=== PATIENT | male | born 1950 | race Caucasian/White ===

== ENCOUNTER 2017-02-04 14:03 | Outpatient (CLI) | payer OTHER ==
--- NOTE | 2017-02-04 14:42 | DI ---
EXAM: CHEST FRONTAL AND LATERAL VIEWS HISTORY: Cough. COMPARISON: None FINDINGS: Normal heart size. There is at least mild aortic atherosclerosis. Chronic-appearing samantha g changes with mild hyperinflation. No acute infiltrates or vascular congestion. No visible pleura l fluid or pneumothorax. Slight nodularity in the right infrahilar space likely represents bronchova scular structures. Postop changes of the shoulders and the lower cervical spine. IMPRESSION: 1. No acute infiltrates identified. 2. Slight nodularity in the right infrahilar space likely represents bronchovascular shadows. Cons ider follow-up chest radiography for clarification. 3. Postop changes.
--- NOTE | 2017-02-04 14:42 | DI ---
EXAM: Left foot three views HISTORY: Pain in left foot COMPARISON: None FINDINGS: No fracture or dislocation. Small plantar calcaneal spur. Mild posterior calcaneal enth esopathy. Mild osteoarthritis first MTP joint with joint space narrowing and osteophyte formation. IMPERSSION: 1. No fracture or dislocation. 2. Mild osteoarthritis first MTP joint. 3. Small plantar calcaneal spur. Mild posterior calcaneal enthesopathy.
--- NOTE | 2017-02-04 14:42 | DI ---
EXAM: Three views of the right foot. History: Right foot pain. Findings: No acute fracture or dislocation. Moderate narrowing of the first MTP joint with subchon dral sclerosis and osteophyte formation. Minimal calcaneal enthesiopathy. Os peroneum. Impression: 1. No acute osseous abnormality. 2. Moderate osteoarthritis of the first MTP joint.
--- NOTE | 2017-02-04 14:43 | DI ---
EXAM: CERVICAL SPINE, 3 VIEWS HISTORY: Neck pain. FINDINGS: No comparison. Anterior stabilization hardware extends from C4 through C7. Hardware ace ears grossly intact. There is no spondylolisthesis or significant loss of vertebral body height. D iffuse degenerative disc and facet disease is moderate. Lateral masses of C1 and C2 are normally ali gned and the odontoid process is intact. No scoliosis. Bone density appears mildly decreased. No prevertebral soft tissue thickening. IMPRESSION: No definite acute cervical spine findings. If concern is persistent additional imaging can be consi dered.
== END 2017-02-04 14:04 | disposition home or self-care (01) ==
LOC: RAD 14:03
PROVIDERS: ATTEND Nurse Practitioner Family
DX: M54.2 Cervicalgia (principal); M79.672 Pain in left foot; M79.671 Pain in right foot; R05 Cough

== ENCOUNTER 2017-02-05 09:48 | Outpatient (CLI) | payer OTHER ==
[2017-02-05 12:49] LABS: BASOPHILS # (AUTO) 0.1 K/uL (0-0.2); BASOPHILS % (AUTO) 0.6 % (0.0-3.0); EOSINOPHILS # (AUTO) 0.3 K/ul (0.0-0.7); EOSINOPHILS % (AUTO) 3.2 % (0.0-7.0); HEMOGLOBIN 17.1 g/dl (14.0-18.0); LYMPHOCYTES % (AUTO) 37.4 (10.0-50.0); MEAN CORPUSCULAR HEMOGLOBIN 31.8 pg (27.0-31.0); MEAN CORPUSCULAR HGB CONC 34.2 (31.8-35.4); MEAN CORPUSCULAR VOLUME 92.9 fl (80.0-94.0); MONOCYTES # (AUTO) 0.9 K/uL (0.4-2.0); MONOCYTES % (AUTO) 10.6 (0-10); NEUTROPHILS # (AUTO) 3.8 K/ul (2.0-6.9); NEUTROPHILS % (AUTO) 47.2; PLATELET COUNT 212 10^3/uL (140-440); RED BLOOD COUNT 5.38 10^6/ul (4.70-6.10); WHITE BLOOD COUNT 8.02 K/ul (4.2-10.2)
[2017-02-05 13:34] LABS: ALBUMIN/GLOBULIN RATIO 1.05; ANION GAP 16.3; BILIRUBIN,TOTAL 0.76 mg/dL (0.00-1.20); BUN/CREATININE RATIO 17.5; CALCIUM 9.4 mg/dL (8.2-10.2); CHOL/HDL RATIO 4.4 (4.5-6.4); CREATININE 0.8 mg/dL (0.60-1.10); POTASSIUM 4.3 mmol/L (3.5-5.1); TOTAL PROTEIN 7.8 g/dL (5.8-8.1)
== END 2017-02-05 09:49 | disposition home or self-care (01) ==
LOC: LAB 09:48
PROVIDERS: ATTEND Nurse Practitioner Family
DX: E75.6 Lipid storage disorder, unspecified (principal); I10 Essential (primary) hypertension; F17.200 Nicotine dependence, unspecified, uncomplicated; Z12.5 Encounter for screening for malignant neoplasm of prostate
CPT/HCPCS: 36415; 80053; 80061; 84439; 84443; 85025

== ENCOUNTER 2017-02-11 07:41 | Outpatient (CLI) | payer OTHER ==
--- NOTE | 2017-02-11 08:49 | CT ---
EXAM: CT chest with and without contrast HISTORY: Right infrahilar nodular density on prior chest x-ray COMPARISON: Chest x-ray 02/04/2017 TECHNIQUE: Serial axial images of the chest were obtained after and before 75 ml of Omnipaque IV co ntrast was administered. These were obtained from the lung apices to the upper abdomen. FINDINGS: The thyroid is normal. Visualized vessels are unremarkable. There is no dissection, ane urysm or stenosis. The heart is normal in size without pericardial effusion. There is no mediastin al, hilar or axillary pathologically enlarged lymph nodes. There is no pneumothorax or pleural effusion. There is calcified granuloma in the anterior left upp er lobe on image 14. There is a 0.3 cm ground-glass nodule in the posterior right upper lobe on pauline ge 18. There is a 0.3 cm pulmonary nodule in the inferior aspect of the right upper lobe on image 3 1. There is no additional nodule, consolidation or mass. The airways are patent. There is no sign ificant ground-glass. There is no abnormality to account for nodularity in the right infrahilar reg ion. There is degenerative disease of both shoulders. The left shoulder demonstrates a fractured left s crew. The right shoulder screw is unchanged. There is degenerative disease of the shoulders and sp ine. Chronic fracture changes of the left clavicle. There is internal fixation hardware in the cer vical spine. The soft tissues in the upper abdomen demonstrate a round 1.3 cm low attenuation lesio n in the left kidney with Hounsfield units of all consistent with a cyst. There is a nonobstructing 0.2 cm left renal stone. There is a small fat-containing ventral abdominal hernia. IMPRESSION: 1. No acute cardiopulmonary process to account for nodularity in the right infrahilar region on yoko or chest x-ray. Few scattered ground-glass pulmonary nodules are identified measuring less than 0.3 cm in diameter and are likely postinflammatory. No follow-up is necessary. 2. Fracture and fixation screw in the left shoulder with degenerative disease of the bilateral shou lders and spine. There is a chronic left clavicular fracture. 3. Left renal cyst and nonobstructing stone. 4. Fat containing ventral abdominal hernia.
[2017-02-11 08:57] VITALS: BMI 31.4
== END 2017-02-11 07:42 | disposition home or self-care (01) ==
LOC: RAD 07:41
PROVIDERS: ATTEND Nurse Practitioner Family
DX: R93.8 Abnormal findings on diagnostic imaging of other specified body structures (principal)

== ENCOUNTER 2017-02-11 08:44 | Emergency (ER) | payer OTHER ==
[2017-02-11 08:57] VITALS: BP 160/95; TEMP 98.2; BMI 31.4
[2017-02-11] MEDS ORDERED: MORPHINE 4 MG/ML SYRINGE IM STA (09:09)
[2017-02-11] MEDS ORDERED: ZOFRAN 4 MG/2 ML IM STA (09:09)
[2017-02-11 09:24] LABS: BASOPHILS % (AUTO) 0.2 % (0.0-3.0); EOSINOPHILS # (AUTO) 0.2 K/ul (0.0-0.7); EOSINOPHILS % (AUTO) 2.2 % (0.0-7.0); HEMATOCRIT 45.6 % (42.0-52.0); LYMPHOCYTES # (AUTO) 2.5 K/uL (0.60-3.4); LYMPHOCYTES % (AUTO) 30.8 (10.0-50.0); MEAN CORPUSCULAR HEMOGLOBIN 32.3 pg (27.0-31.0); MEAN CORPUSCULAR HGB CONC 35.1 (31.8-35.4); MEAN CORPUSCULAR VOLUME 92.1 fl (80.0-94.0); MONOCYTES # (AUTO) 0.8 K/uL (0.4-2.0); MONOCYTES % (AUTO) 9.6 (0-10); NEUTROPHILS # (AUTO) 4.5 K/ul (2.0-6.9); NEUTROPHILS % (AUTO) 56.2; PLATELET COUNT 185 10^3/uL (140-440); RED BLOOD COUNT 4.95 10^6/ul (4.70-6.10); WHITE BLOOD COUNT 8.02 K/ul (4.2-10.2)
[2017-02-11 09:39] LABS: ADD URINE MICROSCOPIC NO; BILIRUBIN,URINE Negative (NEGATIVE); KETONES,URINE Negative (NEGATIVE); LEUKOCYTE ESTERASE ,URINE Negative (NEGATIVE); NITRITE,URINE Negative (NEGATIVE); PH,URINE 7.5 (5-9); PROTEIN,URINE Negative (NEGATIVE); URINE, BLOOD Negative (NEGATIVE)
[2017-02-11 09:43] LABS: ALBUMIN 3.8 g/dL (3.4-5.0); ALBUMIN/GLOBULIN RATIO 1.31; ANION GAP 14.1; BILIRUBIN,TOTAL 0.86 mg/dL (0.00-1.20); BUN/CREATININE RATIO 16.88; CALCIUM 8.6 mg/dL (8.2-10.2); CREATININE 0.77 mg/dL (0.60-1.10); POTASSIUM 4.1 mmol/L (3.5-5.1); TOTAL PROTEIN 6.7 g/dL (5.8-8.1)
--- NOTE | 2017-02-11 10:12 | CT ---
EXAM: CT of the abdomen pelvis without contrast History: Left lower quadrant abdominal pain. Comparison: Chest CT 02/11/2017 Technique: Multiplanar CT images through the abdomen pelvis were obtained without the administratio n of IV contrast Findings: Mild bronchiectasis seen at the lung bases. No acute osseous abnormalities. Bilateral L5 pars defects with grade II spondylolisthesis of L5 on S1. Severe degenerative disc disease at L5-S 1. The liver is fatty. No discrete gallstones identified by CT. No focal liver or splenic lesions. T iny hiatal hernia. Adrenal glands are unremarkable. No peripancreatic inflammation. Contrast is s een within the bilateral renal collecting systems from the recent IV contrast study. No definite re nal calculi are identified although a small renal calculi could be obscured by the contrast material within the collecting systems. 1.2 cm left renal cyst. There is no hydronephrosis. No free air an d no ascites. Atherosclerotic vascular calcifications. Small to moderate fat containing umbilical hernia measuring 4 cm. Enlarged prostate abutting the base of the bladder. Bladder is not well dis tended. Postsurgical changes of the left colon. The appendix is normal. Impression: 1. No acute intra-abdominal or pelvic process. 2. Simple left renal cyst. 3. Hepatic steatosis. 4. A tiny hiatal hernia. 5. Enlarged prostate abutting the base of the bladder. Correlate with PSA. 6. Fat-containing umbilical hernia. 7. Bilateral L5 pars defects with grade II spondylolisthesis of L5 on S1. Severe degenerative disc disease at L5-L1.
--- NOTE | 2017-02-11 10:38 | ED.PDOC ---
General ED Provider: Dr. REMI GILMORE Chief Complaint: Back Pain Stated Complaint: back, flank and abominal pain Time Seen by Physician: 08:44 Mode of Arrival: Walk-In Information Source: Patient Exam Limitations: No limitations [facility] and T[facility] Documentation Reviewed and Agree: Yes GI Complaint Exam - Abdominal Pain Complaint/Exam Onset: Gradual Duration: 3 dats Symptoms Are: Still present Timing: Intermittent Initial Severity: Moderate Current Severity: Moderate Location of Pain: LLQ Radiates To: Reports: Flank (left) Character: Reports: Aching Aggravating: Reports: None Alleviating: Reports: None Associated Signs and Symptoms: Denies: Diaphoresis, Fever, Cough, Chest pain, Dizziness, Back pain, Constipation, Blood in stool, Dysuria, Urinary frequency, Decreased urine output, Decreased appetite, Discharge, Nausea, Vomiting, Diarrhea, Decreased activity Related History: Reports: Similar episode AAA Risk Factors: Reports: None Review of Systems - Review Of Systems Constitutional: Reports: No symptoms Eyes: Reports: No symptoms Ears, Nose, Mouth, Throat: Reports: No symptoms Respiratory: Reports: No symptoms Cardiac: Reports: No symptoms GI: Reports: Abdominal pain : Reports: No symptoms Musculoskeletal: Reports: Back pain Skin: Reports: No symptoms Neurological: Reports: No symptoms Endocrine: Reports: No symptoms Hematologic/Lymphatic: Reports: No symptoms All Other Systems: Reviewed and Negative Past Medical History - Past Medical History Previously Healthy: No Endocrine: Reports: None Cardiovascular: Reports: Hypertension Respiratory: Reports: COPD Hematological: Reports: None Gastrointestinal: Reports: None Genitourinary: Reports: Kidney stones Neuro/Psych: Reports: None Musculoskeletal: Reports: None Cancer: Reports: None - Surgical History General Surgical History: Reports: None - Family History Family History: Reports: None - Social History Smoking Status: Current every day smoker, Heavy tobacco smoker Hx Substance Use: No Alcohol Screening: Occasionally Physical Exam - Physical Exam Appearance: Well-appearing, No pain distress, Well-nourished Eyes: TAVIA, EOMI, Conjunctiva clear ENT: Ears normal, Nose normal, Oropharynx normal Respiratory: Airway patent, Breath sounds clear, Breath sounds equal, Respirations nonlabored Cardiovascular: RRR, Pulses normal, No rub, No murmur GI/: Soft, Nontender, No masses, Bowel sounds normal, No Organomegaly Musculoskeletal: Normal strength, ROM intact, No edema, No calf tenderness Skin: Warm, Dry, Normal color Neurological: Sensation intact, Motor intact, Reflexes intact, Cranial nerves intact, Alert, Oriented Psychiatric: Affect appropriate, Mood appropriate Interpretation - Radiology Interpretation Radiology Interpretation By: Radiologist Radiology Results: No acute changes Critical Care Note - Critical Care Note Total Time (mins): 0 Course - Course Hematology/Chemistry: 02/11/17 09:10 02/11/17 09:10 Orders, Labs, Meds: Lab Review 02/11/17 09:10 WBC 8.02 RBC 4.95 Hgb 16.0 Hct 45.6 MCV 92.1 MCH 32.3 H MCHC 35.1 RDW Coeff of [place] 13.5 Plt Count 185 Immature Gran % (Auto) 1.0 Neut % (Auto) 56.2 Lymph % (Auto) 30.8 [place] % (Auto) 9.6 Eos % (Auto) 2.2 Baso % (Auto) 0.2 Immature Gran # (Auto) 0.1 Neut # 4.5 Lymph # 2.5 [place] # 0.8 Eos # 0.2 Baso # 0.0 Sodium 137 Potassium 4.1 Chloride 103 Carbon Dioxide 24 Anion Gap 14.1 BUN 13 Creatinine 0.77 Estimated GFR (MDRD) 102.00 BUN/Creatinine Ratio 16.88 Glucose 133 H Calcium 8.6 Total Bilirubin 0.86 AST 21 ALT 19 Alkaline Phosphatase 85 Total Protein 6.7 Albumin 3.8 Globulin 2.9 Albumin/Globulin Ratio 1.31 Urine Color Yellow Urine Clarity Clear Urine pH 7.5 Ur Specific [place] 1.015 Urine Protein Negative Urine Glucose (UA) Negative Urine Ketones Negative Urine Blood Negative Urine Nitrite Negative Urine Bilirubin Negative Urine Urobilinogen 0.2 Ur Leukocyte Esterase Negative Orders Category Date Time Status CBC W/ AUTO DIFF Stat LAB 02/11/17 09:10 Completed COMPREHENSIVE METABOLIC PANEL Stat LAB 02/11/17 09:10 Completed URINALYSIS C & S IF INDICATED Stat LAB 02/11/17 09:10 Completed Morphine Sulfate [Morphine 4 mg/ml Syringe] MEDS 02/11/17 09:09 Discontinued 4 mg IM ONCE STA Ondansetron HCl/Pf [Zofran 4 mg/2 ml] MEDS 02/11/17 09:09 Discontinued 4 mg IM ONCE STA CT ABD/PEL WO RENAL STONE PROT Stat RADS 02/11/17 09:10 Completed Medications Discontinued Medications Generic Name Dose Route Start Last Admin Trade Name Nadiya PRN Reason Stop Dose Admin Morphine Sulfate 4 mg 02/11/17 09:09 02/11/17 09:38 Morphine 4 Mg/Ml Syringe IM 02/11/17 09:10 4 mg ONCE STA Administration Ondansetron HCl 4 mg 02/11/17 09:09 02/11/17 09:38 Zofran 4 Mg/2 Ml IM 02/11/17 09:10 4 mg ONCE STA Administration Vital Signs: Temp Pulse Resp BP Pulse Ox 02/11/17 08:44 98.2 F 89 20 160/95 H 93 L Departure - Departure Time of Disposition: 10:39 Disposition: HOME SELF-CARE Discharge Problem: Backache Instructions: Marisol (ED), Abdominal Pain in Children (ED), Abdominal Pain (ED) Condition: Good Pt referred to PMD for follow-up: No Prescriptions: Hydrocodone/Acetaminophen [[place] 10-325 Tablet] 1 each PO Q8HR #12 tablet Allergies/Adverse Reactions: Allergies pencillin Allergy (Severe, Uncoded 02/11/17 08:57) Swelling Difficulty breathing Home Medications: Ambulatory Orders Hydrocodone/Acetaminophen [[place] 10-325 Tablet] 1 each PO Q8HR #12 tablet Disposition Discussed With: Patient
== END 2017-02-11 10:43 | disposition home or self-care (01) ==
LOC: ED 08:44
DX: M54.9 Dorsalgia, unspecified (principal); R10.32 Left lower quadrant pain; I10 Essential (primary) hypertension; F17.210 Nicotine dependence, cigarettes, uncomplicated; Z87.442 Personal history of urinary calculi; R93.8 Abnormal findings on diagnostic imaging of other specified body structures
CPT/HCPCS: 36415; 74176; 80053; 81001; 85025; 96372; 99283

== ENCOUNTER 2017-02-13 14:21 | Outpatient (CLI) | payer OTHER ==
--- NOTE | 2017-02-13 14:48 | DI ---
EXAM: Five views of the lumbar spine. History: Lower back pain. Findings / impression: Atherosclerotic vascular calcifications. No acute fracture. Bilateral L5 pa rs defects with grade II spondylolisthesis of L5 on S1. Severe degenerative disc disease at L5-S1 a nd moderate to severe facet hypertrophy at L5-S1. Mild to moderate disc space narrowing seen elsewh ere.
[2017-02-14 09:24] LABS: PSA, FREE 1.29 ng/mL
== END 2017-02-13 14:22 | disposition home or self-care (01) ==
LOC: RAD 14:21
PROVIDERS: ATTEND Nurse Practitioner Family
DX: R73.09 Other abnormal glucose (principal); M54.5 Low back pain; I10 Essential (primary) hypertension; Z12.5 Encounter for screening for malignant neoplasm of prostate
CPT/HCPCS: 36415; 83036; 93005; 93010

== ENCOUNTER 2017-02-21 06:19 | Outpatient (CLI) ==
--- NOTE | 2017-02-21 07:59 | STRESSMOD ---
Ordering Physician: KRISTAL Date of Test: 02/21/17 Medical History: PAC'S, ABNORMAL EKG, CARDIAC CATH 2011, HTN, CHEST PAIN Current Medications: COREG, RANITIDINE, CARAFATE, METFORMIN, ALBUTEROL Physical Findings: S1, S2, NO S3 Target Heart Rate: 132/156 Resting EKG: SINUS RHYTHM/LEFT VENTRICULAR HYPERTROPHY/FEW PVC'S STAGE MPH/GRADE HEART RATE BPM BLOOD PRESSURE mmhg RHYTHM S-T SEGMENT UP DOWN SYMPTOMS,COMMENTS At Rest 70 140/90 SR X NONE 1 1.7/0% 106 158/94 SR X NONE 2 1.7/5% 3 1.7/10% 4 2.5/12% 5 3.4/14% 6 4.2/16% 7 5.18% Immediately after 126 160/90 SR X FATIGUE Total Time: 8:01 Maximum Heart Rate Reached: 126 Reason for Termination: FATIGUE 3 MIN POST EXERCISE: HR 80 BPM, BP 150/96 MMHG, SR, +/- ____ INTERPRETATION: 94% OXYGEN SATURATION WITH EXERCISE ON ROOM AIR METS 4.8 1. PATIENT REPORTED CARDIAC CATH 2011--SAYS "WAS NORMAL" @ [place], [place] 2. NO EVIDENCE OF ISCHEMIA BY ST-T WAVE 3. NO CHEST PAIN OR DISCOMFORT 4. BLOOD PRESSURE RESPONSE: MILD HYPERTENSION AT REST AND WITH EXERCISE 5. FEW PVC'S AT REST--LESS FREQUENT WITH EXERCISE NORMAL LEFT VENTRICULAR CONTRACTILITY --RESTING AND POST EXERCISE MTDD
--- NOTE | 2017-02-21 08:02 | ECHOSTRESS ---
Date of Exam: 02/21/17 Ordering Physician: [place] GIRALDO Reason for Echo: PAC'S, ABNORMAL EKG, STRESS TEST--NO ISCHEMIA M-Mode Normal Adult Results LV Dimensions Normal Adult Results AoV Opening excursions >1.6 LVEDD-base- 3.5-5.8 Ao root dimensions 2.0-3.7 LVESD-base- 3.1-4.6 L. Atrium dimensions 1.9-3.8 Post. Wall thickness 0.8-1.1 IV septum (thickness) 0.7-1.2 Post. Wall excursion 0.72-1.3 Septal motion Systolic motion R. Ventricular cavity 1.5-2.0 LVEF 60% Paradoxical septal wall motion 2-D: NORMAL LEFT VENTRICULAR CONTRACTILITY--RESTING AND POST EXERCISE M-MODE: MV: AV: TV: PV: CHAMBER SIZE: WALL MOTION: NORMAL LEFT VENTRICULAR CONTRACTILITY--RESTING AND POST EXERCISE PERICARDIUM: INTERPRETATION: 1. NORMAL LEFT VENTRICULAR CONTRACTILITY--RESTING AND POST EXERCISE MTDD
== END 2017-02-21 06:20 | disposition home or self-care (01) ==
LOC: CAR 06:19
PROVIDERS: ATTEND Nurse Practitioner Family
DX: I49.1 Atrial premature depolarization (principal); R94.31 Abnormal electrocardiogram [ECG] [EKG]

== ENCOUNTER 2017-03-08 13:36 | Outpatient (CLI) | END 2017-03-08 13:37 | disposition home or self-care (01) | LOC: LAB 13:36 | PROVIDERS: ATTEND Nurse Practitioner Family | DX: J02.9 Acute pharyngitis, unspecified (principal) | CPT/HCPCS: 87651; 87880 ==

== ENCOUNTER 2017-08-21 10:06 | Outpatient (CLI) | payer OTHER ==
--- NOTE | 2017-08-21 11:20 | US ---
Exam: Lux-scale and color Doppler ultrasonographic evaluation of the carotid arteries. Comparison: None available. Reason for exam: Dizziness and giddiness FINDINGS: There is a small amount of atheromatous plaque seen in the proximal right internal carotid artery The right external carotid artery measures 130 cm per second The right common carotid artery measures 90 / 20 cm/sec. The right internal carotid artery peak systolic velocity measures 70 cm per second The right internal carotid artery/CCA PSV ratio measures 0.8. The right internal carotid artery end-diastolic velocity measures 20 cm/sec. There is normal antegrade right vertebral artery flow. There is a small amount of atheromatous plaque in the proximal left internal carotid artery. The left external carotid artery measures 80 cm per second The left common carotid artery measures 70 / 20 cm/sec. The left internal carotid artery peak systolic velocity measures 80 cm per second The left internal carotid artery/CCA PSV ratio measures 1.2. The left internal carotid artery end-diastolic velocity measures 0.3 cm/sec. There is normal antegrade left vertebral artery flow. Impression: No evidence of significant stenotic disease is seen in the left or right internal carotid arteries
[2017-08-21] MEDS ORDERED: ALBUTEROL 0.083% NEB NEB STA (12:23)
== END 2017-08-21 10:07 | disposition home or self-care (01) ==
LOC: RAD 10:06
PROVIDERS: ATTEND Nurse Practitioner Family
DX: R06.02 Shortness of breath (principal); R42 Dizziness and giddiness

== ENCOUNTER 2017-10-17 11:04 | Outpatient (CLI) | END 2017-10-17 11:05 | disposition home or self-care (01) | LOC: LAB 11:04 | PROVIDERS: ATTEND Nurse Practitioner Family | DX: E11.9 Type 2 diabetes mellitus without complications (principal); I10 Essential (primary) hypertension; E75.6 Lipid storage disorder, unspecified; R39.198 Other difficulties with micturition; Z12.5 Encounter for screening for malignant neoplasm of prostate | CPT/HCPCS: 36415; 80053; 80061; 81001; 83036; 85025 ==

== ENCOUNTER 2017-10-22 10:14 | Outpatient (CLI) ==
--- NOTE | 2017-10-22 12:05 | DI ---
EXAM: Two views of the chest. History: Primary hypertension. Comparison: Chest radiograph 02/04/2017, chest CT 02/11/2017 Findings: Heart size is normal. No focal consolidation. No appreciable pleural fluid and no pneumo thorax. No acute osseous abnormalities. Postsurgical changes with fractured screw again seen involv ing the left scapula. Impression: No acute cardiopulmonary process. No change compared to the prior study.
== END 2017-10-22 10:15 | disposition home or self-care (01) ==
LOC: RAD 10:14
PROVIDERS: ATTEND Nurse Practitioner Family
DX: R00.2 Palpitations (principal); I10 Essential (primary) hypertension
CPT/HCPCS: 93005; 93010

== ENCOUNTER 2017-11-25 12:19 | Outpatient (CLI) ==
--- NOTE | 2017-11-25 13:11 | DI ---
EXAM: Two views of the chest. History: Cough. Comparison: Chest radiograph 10/22/2017 Findings: Heart size is within normal limits. No focal consolidation. No appreciable pleural fluid and no pneumothorax. There may be bronchial wall thickening. Postsurgical changes of the cervical spine. Stable fractured screw involving the left scapula. Impression: Bronchial wall thickening but no consolidated pneumonia.
== END 2017-11-25 12:20 | disposition home or self-care (01) ==
LOC: RAD 12:19
PROVIDERS: ATTEND Nurse Practitioner Family
DX: R05 Cough (principal)

== ENCOUNTER 2018-01-06 12:04 | Outpatient (CLI) | END 2018-01-06 12:05 | disposition home or self-care (01) | LOC: FCC-LAB 12:04 | PROVIDERS: ATTEND Nurse Practitioner Family | DX: E11.9 Type 2 diabetes mellitus without complications (principal); I10 Essential (primary) hypertension; E78.5 Hyperlipidemia, unspecified; Z79.899 Other long term (current) drug therapy | CPT/HCPCS: 36415; 80053; 80061; 81001; 83037; 85025 ==

== ENCOUNTER 2018-02-11 16:26 | Emergency (ER) ==
[2018-02-11 16:31] VITALS: BP 168/115; TEMP 96.8; BMI 33.0
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
[2018-02-11] MEDS ORDERED: NORFLEX IM STA (17:04)
[2018-02-11] MEDS ORDERED: DILAUDID IM STA (17:57)
[2018-02-11] MEDS ORDERED: VISTARIL INJ IM STA (17:58)
--- NOTE | 2018-02-11 18:06 | CT ---
EXAM: CT scan cervical spine HISTORY: Neck pain COMPARISON: None. FINDINGS: Contiguous axial images obtained through the cervical spine utilizing 2-mm collimation. S agittal and coronal reconstructions were imaged and reviewed.. There is loss normal cervical lordosi s suggesting paraspinal muscle spasm. The vertebral bodies are normal in height and alignment... Th ere has been prior anterior discectomy with interbody spacer placement anterior fusion C4-C5 through C6-C7. Marked degenerate disc disease is noted C7-T1. Degenerative changes noted about the left side of the left atlantoaxial articulation.. At C2-C3 there is mild central disc protrusion. Central c anal foramen are patent. At C3-C4 there is mild central disc protrusion with borderline narrowing of the central canal and right neural foraminal narrowing secondary to facet arthropathy. At C4-C5 spo ndylitic bulge narrows the central canal. There is bilateral neural foraminal narrowing secondary to uncovertebral degenerative changes. At C5-C6 spondylitic bulge narrows the AP dimension of the centr al canal. There is bilateral neural foraminal narrowing left greater than right. At C6-C7 spondyliti c bulge narrows the AP dimension of central canal. There is left neural foraminal narrowing secondar y to uncovertebral degenerative changes.. At C7-T1 spondylitic bulge narrows the AP dimension of melba tral canal. There is bilateral neural foraminal narrowing secondary to uncovertebral degenerative ch anges. IMPRESSION: Satisfactory postoperative fusion C4-C7. Multilevel central canal and foraminal stenosis as described.
== END 2018-02-11 19:01 | disposition home or self-care (01) ==
LOC: ED 16:26
DX: M54.2 Cervicalgia (principal); M48.02 Spinal stenosis, cervical region; M54.12 Radiculopathy, cervical region; F17.210 Nicotine dependence, cigarettes, uncomplicated
CPT/HCPCS: 36415; 80048; 96372; 99283

== ENCOUNTER 2018-02-25 08:52 | Outpatient (CLI) | payer OTHER ==
--- NOTE | 2018-02-25 14:04 | MRI ---
EXAM: MRI cervical spine without IV contrast. DATE: 25 February 2018. HISTORY: Cervical radiculopathy. TECHNIQUE: Sagittal and axial T1W and T2W sequences of the cervical spine along with sagittal IR and coronal T2W sequences were obtained using 1.5 [place] magnet. No IV contrast. COMPARISON: CT C-spine 02/11/2018. FINDINGS: There is no cervical scoliosis. Previous discectomies with an interbody fusion plug place ment and anterior plate and screw fixation are evident at C4-C5-C6-C7. No acute c-spine fracture, ingram bluxation, osseous malignancy, or jumped facet is apparent. Cervical vertebrae normal in height. Alex ne marrow signal is overall normal. Large anterior osteophytes and marked disc space narrowing are p resent at C7-T1. Superior osteophytes at the C1 body and odontoid are consistent with arthritis. Ce rvical spinal canal is narrow at several levels. Cervical spinal cord reveals no syrinx, cord edema, myelomalacia, or neoplasm. Visible brainstem and cerebellum are unremarkable. Right maxillary sinus small retention cyst vs muc osal thickening is seen inferiorly. No mastoid disease is detected. Trachea, larynx, and epiglottis are grossly normal. No thyroid, submandibular, or parotid gland neoplasm is evident. No suspicious neck mass, cervical lymphadenopathy, apical lung mass, or pneumonia is evident. Segmental analysis: C2-3: Minor posterior disc bulge does not cause cord compression or central stenosis. There is yoon r left facet arthropathy. C3-4: Minor posterior disc/osteophyte complex does not contact the cord. There is mild ligamentum f lavum hypertrophy. Canal is 8.2 mm AP. Moderate/marked right and minor left foraminal stenoses are due to uncinate hypertrophy and mild facet arthropathy. C4-5: S/P ACDF. Posterior spondylotic ridge at the C4 inferior endplate and C5 superior endplate ca use slight cord flattening. Canal appears to be 8 mm AP. Marked bilateral foraminal stenoses due to uncinate hypertrophy and minor facet arthropathy. C5-6: S/P ACDF. Broad posterior spondylotic ridge touches the cord anteriorly. Canal is 8.6 mm AP. Mild right and moderate left foraminal stenoses due to uncinate hypertrophy. C6-7: S/P ACDF. Small posterior spondylotic ridge does not contact the cord. Canal is 10.3 mm AP. Mild left foraminal stenosis is due to uncinate hypertrophy. C7-T1: Broad posterior disc/osteophyte complex (2 mm AP) appears to flatten the cord anteriorly. Ca nal is 9.2 mm AP. Moderate/mild bilateral foraminal stenoses due to uncinate hypertrophy. IMPRESSIONS: 1. S/P ACDF at J3-X2-[id number]-C-7. 2. Multilevel cervical foraminal stenosis (especially bilateral C3-4 and C4-5). 3. Multilevel central canal stenoses (C3-4: Mild. C4-5: Mild/moderate. C5-6: Mild. C7-T1: Mild). 4. No cervical cord edema, syrinx, or myelomalacia.
== END 2018-02-25 08:53 | disposition home or self-care (01) ==
LOC: RAD 08:52
PROVIDERS: ATTEND Nurse Practitioner Family
DX: M54.12 Radiculopathy, cervical region (principal); R93.8 Abnormal findings on diagnostic imaging of other specified body structures

== ENCOUNTER 2018-04-08 11:29 | Outpatient (CLI) | END 2018-04-08 11:30 | disposition home or self-care (01) | LOC: RHC-LAB 11:29 | PROVIDERS: ATTEND Emergency Medicine | DX: E11.9 Type 2 diabetes mellitus without complications (principal); F32.9 Major depressive disorder, single episode, unspecified; R74.8 Abnormal levels of other serum enzymes; E78.5 Hyperlipidemia, unspecified | CPT/HCPCS: 36415; 80053; 80061; 83036; 85025 ==

== ENCOUNTER 2018-04-10 08:40 | Outpatient (CLI) ==
[2018-04-10] MEDS ORDERED: ALBUTEROL 0.083% NEB NEB STA (09:03)
== END 2018-04-10 08:41 ==
LOC: CAR 08:40
PROVIDERS: ATTEND Emergency Medicine
DX: J44.9 Chronic obstructive pulmonary disease, unspecified (principal)

== ENCOUNTER 2018-05-29 12:34 | Outpatient (CLI) | payer OTHER | END 2018-05-29 12:35 | disposition home or self-care (01) | LOC: FCC-LAB 12:34 | PROVIDERS: ATTEND Family Medicine | DX: M54.12 Radiculopathy, cervical region (principal) | CPT/HCPCS: 80306 ==

== ENCOUNTER 2018-11-12 11:45 | Outpatient (CLI) | END 2018-11-12 11:46 | disposition home or self-care (01) | LOC: CAR 11:45 | PROVIDERS: ATTEND Nurse Practitioner Family | DX: Z01.818 Encounter for other preprocedural examination (principal); E11.9 Type 2 diabetes mellitus without complications; I10 Essential (primary) hypertension; E78.5 Hyperlipidemia, unspecified; J44.9 Chronic obstructive pulmonary disease, unspecified; R74.8 Abnormal levels of other serum enzymes; R80.9 Proteinuria, unspecified | CPT/HCPCS: 36415; 80053; 80061; 81001; 82043; 83036; 85025; 93005; 93010 ==

== ENCOUNTER 2018-12-02 14:45 | Emergency (ER) | payer OTHER ==
[2018-12-02 14:54] VITALS: TEMP 97.7
--- NOTE | 2018-12-02 15:31 | ED.PDOC ---
General ED Provider: Dr. BENIGNO BROCK Chief Complaint: Respiratory Complaint Stated Complaint: reports a ransient breathing problem and palpitations last night-smoking still. Time Seen by Physician: 15:32 Mode of Arrival: Wheelchair Information Source: Patient Exam Limitations: No limitations Primary Care Provider: RIKA CAPELLAN Nursing and Triage Documentation Reviewed and Agree: Yes Does patient meet sepsis criteria?: No System Inflammatory Response Syndrome: Not Applicable Sepsis Protocol: For patient's 13 years and over: Temp is 96.8 and below OR 101 and greater Pulse >90 BPM Resp >20/minute Acutely Altered Mental Status Are patient's symptoms suggestive of a new infection, such as: -Pneumonia -Skin, Soft Tissue -Endocarditis -UTI -Bone, Joint Infection -Implantable Device -Acute Abdominal Infection -Wound Infection -Meningitis -Blood Stream Catheter Infection -Unknown Respiratory Complaint Exam - Respiratory Complaint/Exam Onset/Duration: breathing and palpitations Symptoms Are: Resolved Timing: Intermittent Initial Severity: Mild Current Severity: None Location: Chest Character: Reports: Non-productive cough Aggravating: Reports: None Alleviating: Reports: None Associated Signs and Symptoms: Reports: Wheezing Related History: Reports: Similar episode History of Healthcare-Acquired Pneumonia: No Related Surgical History: Reports: None Pulmonary Embolism Risk Factors: Smoking Cardiac Risk Factors: Reports: Smoking Pseudomonas Risk Factors: Reports: None Tuberculosis Risk Factors: Reports: None Status Asthmaticus Risk Factors: Reports: Smoke exposure Home Oxygen Use: No Recent Stress Test: No Recent Echo/LV Function: No Current Asthma Medication Use: No Respiratory Distress: None Inadequate Respiratory Effort: No Dysphagia Present: No Stridor Present: No JVD Present: No Accessory Muscle Use: No Retractions: Not Present Diminished Breath Sounds: Yes Prolonged Respiration: Expiratory phase Sinus Tenderness: None Grunting Respirations: No Kussmaul Respirations: No Differential Diagnoses: Asthma, Pulmonary Embolism, Lower Resp. Infection Non-Traumatic Chest Pain Syncope: EKG Performed Review of Systems - Review Of Systems Constitutional: Reports: Other Eyes: Reports: No symptoms Ears, Nose, Mouth, Throat: Reports: No symptoms Respiratory: Reports: Cough, Wheezing Cardiac: Reports: Palpitations GI: Reports: No symptoms : Reports: No symptoms Musculoskeletal: Reports: No symptoms Skin: Reports: No symptoms Neurological: Reports: No symptoms Endocrine: Reports: No symptoms Hematologic/Lymphatic: Reports: No symptoms All Other Systems: Reviewed and Negative Past Medical History - Past Medical History Previously Healthy: No Endocrine: Reports: None Cardiovascular: Reports: Hypertension Respiratory: Reports: COPD Hematological: Reports: None Gastrointestinal: Reports: None Genitourinary: Reports: Kidney stones Neuro/Psych: Reports: None Musculoskeletal: Reports: None Cancer: Reports: None - Surgical History General Surgical History: Reports: None - Family History Family History: Reports: None - Social History Smoking Status: Current every day smoker, Heavy tobacco smoker Hx Substance Use: No Alcohol Screening: Occasionally Physical Exam - Physical Exam Appearance: Well-appearing, Obese Ill-appearing: None Pain Distress: None Eyes: TAVIA ENT: Ears normal Neck: Supple Respiratory: Airway patent, Breath sounds diminished, Respirations nonlabored Cardiovascular: RRR GI/: Tender Musculoskeletal: Normal strength Skin: Warm Neurological: Sensation intact Psychiatric: Affect appropriate Critical Care Note - Critical Care Note Total Time (mins): 0 Course - Course Hematology/Chemistry: 12/02/18 15:48 12/02/18 15:48 Orders, Labs, Meds: Lab Review 12/02/18 12/02/18 15:48 15:48 WBC 8.50 RBC 4.65 L Hgb 14.6 Hct 43.0 MCV 92.5 MCH 31.4 H MCHC 34.0 RDW Coeff of [place] 12.8 Plt Count 200 Immature Gran % (Auto) 1.2 Neut % (Auto) 49.1 Lymph % (Auto) 36.8 [place] % (Auto) 9.5 Eos % (Auto) 2.9 Baso % (Auto) 0.5 Immature Gran # (Auto) 0.1 Neut # (Auto) 4.2 Lymph # (Auto) 3.1 [place] # (Auto) 0.8 Eos # (Auto) 0.3 Baso # (Auto) 0.0 Sodium 135.1 Potassium 4.40 Chloride 98.3 Carbon Dioxide 25.9 Anion Gap 15.30 BUN 16.7 Creatinine 0.67 Estimated GFR (MDRD) 119.00 BUN/Creatinine Ratio 24.92 Glucose 194.4 H Calcium 9.25 Total Bilirubin 0.43 AST 28.9 ALT 35.0 Alkaline Phosphatase 78.4 Total Protein 7.22 Albumin 4.64 Globulin 2.58 Albumin/Globulin Ratio 1.79 Orders Category Date Time Status EKG-(ED ONLY) Stat CARDIO 12/02/18 15:30 Completed NPO REMINDER: IMAGING ONCE CARE 12/02/18 15:38 Completed IV [ED IV/MEDIPORT/POWERPORT] .ONCE EMERGENCY 12/02/18 15:39 Active CBC W/ AUTO DIFF Stat LAB 12/02/18 15:48 Completed COMPREHENSIVE METABOLIC PANEL Stat LAB 12/02/18 15:48 Completed 0.9 % Sodium Chloride [Saline Flush] MEDS 12/02/18 15:39 Active 1 syr IVF PRN PRN Sodium Chloride 0.9% [Sodium Chloride] 1,000 ml MEDS 12/02/18 15:[address] CHEST PE PROTOCOL Stat RADS 12/02/18 15:37 Completed Medications Generic Name Dose Route Start Last Admin Trade Name Freq PRN Reason Stop Dose Admin Sodium Chloride 1 syr 12/02/18 15:39 12/02/18 16:07 Saline Flush IVF 1 syr PRN PRN Administration To flush IV Discontinued Medications Generic Name Dose Route Start Last Admin Trade Name Freq PRN Reason Stop Dose Admin Sodium Chloride 1,000 mls @ 1,000 mls/hr 12/02/18 15:40 12/02/18 16:07 Sodium Chloride IV 12/02/18 16:39 1,000 mls/hr BOLUS STA Administration Vital Signs: Temp Pulse Resp BP Pulse Ox 12/02/18 17:21 75 20 133/83 93 L 12/02/18 14:52 97.7 F 72 20 131/80 91 L Departure - Departure Time of Disposition: 17:34 Disposition: HOME SELF-CARE Discharge Problem: Heart palpitations Instructions: Supraventricular Tachycardia (ED) Condition: Good Pt referred to PMD for follow-up: Yes IPMP verified?: No Additional Instructions: Albuterol inhaler bid orn.Prednisobe 40 mg qd x 5 days.x Allergies/Adverse Reactions: Allergies codeine Allergy (Mild, Verified 12/02/18 14:51) Itching meloxicam Allergy (Verified 12/02/18 14:51) Nausea Penicillins Adverse Reaction (Verified 12/02/18 14:51) Disposition Discussed With: Patient, Family
[2018-12-02 15:34] VITALS: BMI 34.2
[2018-12-02] MEDS ORDERED: SODIUM CHLORIDE 1,000 ML IV STA (15:40)
--- NOTE | 2018-12-02 17:20 | CT ---
EXAM: CTA chest for PE HISTORY: Shortness of breath and palpitations COMPARISON: CT chest 02/11/2017 TECHNIQUE: CTA of the chest was performed from the lung apices to the upper abdomen after 100 ml of Omnipaque IV contrast was administered using PE protocol. 3-D imaging was also provided. FINDINGS: There is no filling defect in the pulmonary arteries to the level of the subsegmental pulm onary arteries. The heart is normal without signs of ventricular strain. The aorta demonstrates mil d atherosclerotic disease. The thyroid is unremarkable. There are non pathologically enlarged media stinal and right hilar lymph nodes. There is no pneumothorax or effusion. There is a 0.2 cm pulmonary nodule in the right upper lobe on image 26. There is a 0.2 cm pulmonary nodule in the inferior aspect of the right upper lobe on image 44. There is mild lower lobe and right middle lobe small airways thickening with minimal ground-gla ss. The central airways are patent. There is no acute consolidation or ground-glass. The soft tissues in the upper abdomen demonstrate diffuse low attenuation of the liver. The soft tis sues are otherwise unremarkable. The osseous structures demonstrate mild degenerative disease of the spine and cervical fusion hardware. IMPRESSION: 1. No pulmonary embolism. 2. Bilateral lower lobe and right middle lobe small airways thickening and mild ground-glass suggest nelsy of small airways inflammation versus infection. 3. Ground-glass pulmonary nodules as measured above are less than 0.2 cm and likely postinflammatory . 4. Mild atherosclerotic disease and degenerative disease of the spine with hepatic steatosis.
[2018-12-02 17:22] VITALS: BP 133/83
[2018-12-02] MEDS ORDERED: ALBUTEROL 0.083% NEB NEB STA (17:23)
== END 2018-12-02 17:52 | disposition home or self-care (01) ==
LOC: ED 14:45
DX: R00.2 Palpitations (principal); I10 Essential (primary) hypertension; R05 Cough; R06.2 Wheezing; F17.210 Nicotine dependence, cigarettes, uncomplicated
CPT/HCPCS: 36415; 80053; 85025; 93005; 93010; 94640; 96360; 99283

== ENCOUNTER 2019-02-20 08:59 | Emergency (ER) | payer OTHER ==
[2019-02-20 09:10] VITALS: BP 144/96; TEMP 97.3; BMI 32.2
[2019-02-20] MEDS ORDERED: DIFLUCAN PO STA (09:35)
--- NOTE | 2019-02-20 10:08 | ED.PDOC ---
General ED Provider: Dr. REMI GILMORE Chief Complaint: Scrotal Pain Stated Complaint: 68 y/o white male complains of burning with urination and pruritis involving the glans of the penis. Patient reports discontinuing his diabetic medication for some time due to intolerance to Metformin. His blood sugar at home has been in excess of 300. Time Seen by Physician: 09:00 Mode of Arrival: Walk-In Information Source: Patient Exam Limitations: No limitations (photos submitted) Primary Care Provider: RIKA CAPELLAN Nursing and Triage Documentation Reviewed and Agree: Yes Does patient meet sepsis criteria?: No System Inflammatory Response Syndrome: Not Applicable Sepsis Protocol: For patient's 13 years and over: Temp is 96.8 and below OR 101 and greater Pulse >90 BPM Resp >20/minute Acutely Altered Mental Status Are patient's symptoms suggestive of a new infection, such as: -Pneumonia -Skin, Soft Tissue -Endocarditis -UTI -Bone, Joint Infection -Implantable Device -Acute Abdominal Infection -Wound Infection -Meningitis -Blood Stream Catheter Infection -Unknown Complaint Exam - Complaint/Exam Patient Complains of: Denies: Scrotal pain, Scrotal swelling, Groin pain, Groin swelling, Dysuria Onset/Duration: approximately 1 month Symptoms Are: Still present Timing: Constant Initial Severity: Mild Current Severity: Mild Location of Pain: Reports: Penis Character: Reports: Burning (itching) Aggravating: Reports: Palpation Alleviating: Reports: None Associated Signs and Symptoms: Reports: Dysuria. Denies: Diaphoresis, Back pain , Fever, Hematuria, Constipation, Blood in stool, Rectal pain, Appetite change, Nausea, Vomiting, Penile swelling, Penile discharge, Decreased urine output, Increased urine frequency, Increased thirst, Decreased activity, Lethargy, Scrotal pain, Scrotal swelling, Abdominal Pain Related History: Reports: Similar episode Last Voided: this morning Testicular Torsion Risk Factors: Reports: None Surgical Obstruction Risk Factors: Reports: None Related Surgical History: Reports: None Abdominal Findings: Present: None Genitalia Exam: Absent: Normal findings, Testes asymmetrical, Testes tender ( glans of penis is edematous, hypremic, please refer to photos ), Mass, Scrotal swelling, Penile swelling, Penile lesions, Penile vesicles Differential Diagnoses: Other (candidal balanitis ) Review of Systems - Review Of Systems Constitutional: Reports: No symptoms Eyes: Reports: No symptoms Ears, Nose, Mouth, Throat: Reports: No symptoms Respiratory: Reports: No symptoms Cardiac: Reports: No symptoms GI: Reports: No symptoms : Reports: Burning (involving glans of penis; see photos ) Musculoskeletal: Reports: No symptoms Skin: Reports: No symptoms Neurological: Reports: No symptoms Endocrine: Reports: No symptoms Hematologic/Lymphatic: Reports: No symptoms All Other Systems: Reviewed and Negative Past Medical History - Past Medical History Previously Healthy: No Endocrine: Reports: None Cardiovascular: Reports: Hypertension Respiratory: Reports: COPD Hematological: Reports: None Gastrointestinal: Reports: None Genitourinary: Reports: Kidney stones Neuro/Psych: Reports: None Musculoskeletal: Reports: None Cancer: Reports: None - Surgical History General Surgical History: Reports: None - Family History Family History: Reports: None - Social History Smoking Status: Current every day smoker, Heavy tobacco smoker Hx Substance Use: No Alcohol Screening: Occasionally - Immunizations Tetanus Shot up to Date: No (Unknown) Physical Exam - Physical Exam Appearance: Well-appearing, No pain distress, Well-nourished Eyes: TAVIA, EOMI, Conjunctiva clear ENT: Ears normal, Nose normal, Oropharynx normal Respiratory: Airway patent, Breath sounds clear, Breath sounds equal, Respirations nonlabored Cardiovascular: RRR, Pulses normal, No rub, No murmur GI/: Soft, Nontender, No masses (findings limited to glans of penis as documented in photos ) Musculoskeletal: Normal strength, ROM intact, No edema, No calf tenderness Skin: Warm, Dry, Normal color Neurological: Sensation intact, Motor intact, Reflexes intact, Cranial nerves intact, Alert, Oriented Psychiatric: Affect appropriate, Mood appropriate Critical Care Note - Critical Care Note Total Time (mins): 0 Course - Course Hematology/Chemistry: 02/20/19 09:42 Orders, Labs, Meds: Lab Review 02/20/19 02/20/19 09:20 09:42 WBC 7.80 RBC 5.49 Hgb 17.4 Hct 51.6 MCV 94.0 MCH 31.7 H MCHC 33.7 RDW Coeff of Dayana 12.9 Plt Count 194 Immature Gran % (Auto) 1.0 Neut % (Auto) 57.6 Lymph % (Auto) 30.9 [place] % (Auto) 8.3 Eos % (Auto) 1.9 Baso % (Auto) 0.3 Immature Gran # (Auto) 0.1 Neut # (Auto) 4.5 Lymph # (Auto) 2.4 [place] # (Auto) 0.7 Eos # (Auto) 0.2 Baso # (Auto) 0.0 Urine Color Yellow Urine Clarity Clear Urine pH 5.5 Ur Specific [place] 1.020 Urine Protein 1+ Urine Glucose (UA) 2+ Urine Ketones Negative Urine Blood Negative Urine Nitrite Negative Urine Bilirubin Negative Urine Urobilinogen 0.2 Ur Leukocyte Esterase Negative Urine Microscopic WBC 2-5 Ur Squamous Epith Cells Not present Orders Category Date Time Status CBC W/ AUTO DIFF Stat LAB 02/20/19 09:42 Completed COMPREHENSIVE METABOLIC PANEL Stat LAB 02/20/19 09:42 Received HEMOGLOBIN A1C Stat LAB 02/20/19 09:42 Received URINALYSIS C & S IF INDICATED Stat LAB 02/20/19 09:20 Completed Fluconazole [Diflucan] MEDS 02/20/19 09:35 Discontinued 150 mg PO ONCE STA Medications Discontinued Medications Generic Name Dose Route Start Last Admin Trade Name Freq PRN Reason Stop Dose Admin Fluconazole 150 mg 02/20/19 09:35 Diflucan PO 02/20/19 09:36 ONCE STA Vital Signs: Temp Pulse Resp BP Pulse Ox 02/20/19 09:00 97.3 F L 98 H 20 144/96 H 90 L Departure - Departure Time of Disposition: 10:19 Disposition: HOME SELF-CARE Discharge Problem: Balanitis, Uncontrolled diabetes mellitus Instructions: Yeast Infection (ED), Skin Yeast Infection (ED) Condition: Good Pt referred to PMD for follow-up: Yes IPMP verified?: No Additional Instructions: Please call your Family Physician as soon as possible to schedule a follow-up appointment. I believe the current condition is due to poorly controlled diabetes. You must keep the area clean with luke warm water. You may Tempronics' s KidAdmit and KidAdmit shampoo to keep the area clean. Unless your diabetes is controlled, this condition will be very difficult if not impossible to treat. Diabetes puts you at risk for stroke, heart attack, and kidney disease. There is already evidence of kidney issues related to diabetes. Mainly in the form of proteinuria. There should be no protein in your urine. Please see your doctor as soon as possible. Allergies/Adverse Reactions: Allergies codeine Allergy (Mild, Verified 02/20/19 09:14) Itching meloxicam Allergy (Verified 02/20/19 09:14) Nausea Penicillins Adverse Reaction (Verified 02/20/19 09:14)
[2019-02-20] MEDS ORDERED: HUMULIN R SUBCUT STA (10:41)
== END 2019-02-20 10:51 | disposition home or self-care (01) ==
LOC: ED 08:59
DX: N48.1 Balanitis (principal); E11.65 Type 2 diabetes mellitus with hyperglycemia; I10 Essential (primary) hypertension; F17.210 Nicotine dependence, cigarettes, uncomplicated; Z91.14 Patient's other noncompliance with medication regimen
CPT/HCPCS: 36415; 80053; 81001; 83036; 85025; 96372; 99283

== ENCOUNTER 2022-10-31 02:59 | Inpatient (IN) ==
[2022-10-31] MEDS ORDERED: SOLU-MEDROL 125 MG IVP STA (03:34)
[2022-10-31] MEDS ORDERED: ROCEPHIN 1 GM/50 ML D5W 1 GM/50 ML BAG IV STA (03:34)
[2022-10-31] MEDS ORDERED: ATROVENT 0.02% NEB NEB ONE ×2 (03:34→04:31)
[2022-10-31] MEDS ORDERED: PULMICORT 1 MG/2 ML NEB ONE (03:37)
--- NOTE | 2022-10-31 03:47 | ED.PDOC ---
General ED Provider: Dr. SPEEDY ROBERTS Chief Complaint: Shortness of Air Stated Complaint: Comes to t Er with increasing shortness of breath since this AM. he states he has been ill of a month worse in the past week. Has a cough productive of white sputum, Has chest tightness and feels like he is dr enrique. EMS noted sat of 85 % He has been trying to quit smoking. Time Seen by Provider: 10/31/22 03:34 Mode of Arrival: Ambulance Information Source: Patient and EMT Primary Care Provider: SANDHYA GOMEZ APRN, FNP-C Nursing and Triage Documentation Reviewed and Agree: Yes Does patient meet sepsis criteria?: No System Inflammatory Response Syndrome: Not Applicable Sepsis Protocol: For patient's 13 years and over: Temp is 96.8 and below OR 101 and greater Pulse >90 BPM Resp >20/minute Acutely Altered Mental Status Are patient's symptoms suggestive of a new infection, such as: -Pneumonia -Skin, Soft Tissue -Endocarditis -UTI -Bone, Joint Infection -Implantable Device -Acute Abdominal Infection -Wound Infection -Meningitis -Blood Stream Catheter Infection -Unknown Review of Systems Review Of Systems Constitutional: Denies Chills Eyes: Reports No symptoms Ears, Nose, Mouth, Throat: Reports No symptoms Respiratory: Reports Cough and Short of air GI: Reports No symptoms : Reports No symptoms Musculoskeletal: Reports No symptoms Skin: Reports No symptoms Neurological: Reports Anxiety All Other Systems: Reviewed and Negative [facility] Medical History Allergic rhinitis Biceps muscle tear Chronic back pain Chronic laryngitis Chronic neck pain COPD (chronic obstructive pulmonary disease) Current smoker Diabetes mellitus, insulin dependent (IDDM), uncontrolled Diverticulitis Essential hypertension GERD (gastroesophageal reflux disease) Hiatal hernia Hyperlipidemia Osteoarthritis Right hip pain Umbilical hernia Family History Mother Breast cancer, left Breast cancer, right Cancer Lung cancer FATHER Diabetes Cardiac disease Hyperlipidemia Cancer SISTER Breast cancer, left Breast cancer, right Cancer BROTHER Lung cancer SISTER Breast cancer Social History Smoking and tobacco status: Current every day smoker Tobacco type: cigarettes Smoking packs per day: 0.5 Smoking cigarettes per day: 62 Tobacco: How many years used: 60 Passive smoking exposure: No Quit status: considering quitting Second hand smoke exposure: No Smoking risk assessment performed: No Alcohol intake: current Alcohol intake frequency: a few times a week Alcohol type: wine Counseling given: No Counseling provided: none Substance use type: does not use Counseling given: No Counseling provided: none Kaitlin/sabianism: RESTORATION Special kaitlin needs: No Agree to transfusion: Yes Adopted: No Caregiver/support person: No Foster care: No Household members: family Housing: house Marital status: D Lives independently: Yes Daycare: no daycare Number of children: 7 Number of grandchildren: 13 Highest education level completed: 7th grade Financial difficulty paying for basics: not very hard service: No longterm: No Current occupational status: disabled Current occupational exposures/hazards: No Pets and animals: No Leisure activites: music and fishing History of recent travel: Yes Sexually active: Yes Do you think of yourself as: straight/heterosexual Current gender identity: male Seatbelt use: always Helmet use: No Drives intoxicated or rides with intoxicated commercial collections driver: No Current diet type/program: regular Well-balanced diet: rarely Caffeine: Yes Eating out: rarely or never Reads food labels: seldom or never During the past year weight has: increased > 10 lbs Water heater temperature set < 120 degrees: Yes Working smoke detector in home: Yes Fire extinguisher in home: Yes Carbon monoxide detector in home: Yes Firearms in home: Yes Firearms unloaded and locked: Yes What type of physical activity do you participate in?: none Physical activity functional status: independent ambulation How many days of moderate to strenuous exercise, like a brisk walk, did you do in the last 7 days: 0 Surgical History History of circumcision History of colectomy History of excision of lamina of cervical vertebra for decompression of spinal cord History of fusion of cervical spine History of rotator cuff surgery Physical Exam Physical Exam Appearance: Reports Ill-appearing and Obese Ill-appearing: Moderate Pain Distress: Mild Eyes: Reports TAVIA, EOMI and Conjunctiva clear ENT: Reports Ears normal, Nose normal and Other (large tonuge ) Neck: Supple Respiratory: Reports Breath sounds diminished and Wheezes (Expiratory wheezing ); Denies Airway obstructed Cardiovascular: Reports RRR, Pulses normal and No rub GI/: Reports Nontender Musculoskeletal: Reports Normal strength and ROM intact Skin: Reports Warm and Dry Neurological: Reports Motor intact, Alert and Oriented Psychiatric: Reports Anxious Interpretation EKG Interpretation Time of EKG #1: 02:59 Rate: Normal Rhythm: Sinus [place]ron[place]: Left ST Segment: Normal Interpretation: Anteior fasicular block Critical Care Note Critical Care Note Total Critical Care Time (mins): 30 Course Course Hematology/Chemistry: 10/31/22 03:56 10/31/22 03:56 Orders, Labs, Meds: Lab Review 10/31/22 10/31/22 10/31/22 03:50 03:50 03:50 WBC RBC Hgb Hct MCV MCH MCHC RDW Coeff of Dayana Plt Count Immature Gran % (Auto) Neut % (Auto) Lymph % (Auto) [place] % (Auto) Eos % (Auto) Baso % (Auto) Neut # (Auto) Lymph # (Auto) [place] # (Auto) Eos # (Auto) Baso # (Auto) Immature Gran # (Auto) Puncture Site Lb Base Excess 8.2 H O2 Saturation 83.3 L ABG pH 7.34 L ABG pCO2 63.0 H ABG pO2 51.0 L* ABG HCO3 34.0 H ABG Total CO2 35.9 H Yasmany Test + Hemoglobin 1.2 Oxyhemoglobin 80.9 L Carboxyhemoglobin 6.5 H Total Hemoglobin 18.4 H FiO2 % 21.0 Sodium Potassium Chloride Carbon Dioxide Anion Gap BUN Creatinine Estimated GFR (MDRD) BUN/Creatinine Ratio Glucose Lactic Acid Calcium Total Bilirubin AST ALT Alkaline Phosphatase Total Creatine Kinase CK-MB (CK-2) CK-MB (CK-2) % Troponin I NT-Pro-B Natriuret Pep Total Protein Albumin Globulin Albumin/Globulin Ratio Procalcitonin Influ A Molecular Assay Negative by naat Influ B Molecular Assay Negative by naat SARS CoV-2 RNA Rapid KIANNA Negative 10/31/22 10/31/22 10/31/22 03:56 03:56 03:56 WBC 8.37 RBC 5.70 Hgb 17.9 Hct 55.6 H MCV 97.5 H MCH 31.4 H MCHC 32.2 RDW Coeff of Dayana 13.5 Plt Count 159 Immature Gran % (Auto) 1.0 Neut % (Auto) 56.3 Lymph % (Auto) 28.8 [place] % (Auto) 9.8 Eos % (Auto) 3.6 Baso % (Auto) 0.5 Neut # (Auto) 4.7 Lymph # (Auto) 2.4 [place] # (Auto) 0.8 Eos # (Auto) 0.3 Baso # (Auto) 0.0 Immature Gran # (Auto) 0.1 Puncture Site Base Excess O2 Saturation ABG pH ABG pCO2 ABG pO2 ABG HCO3 ABG Total CO2 Yasmany Test Hemoglobin Oxyhemoglobin Carboxyhemoglobin Total Hemoglobin FiO2 % Sodium 138.6 Potassium 4.45 Chloride 101.0 Carbon Dioxide 32.3 H Anion Gap 9.75 BUN 15.9 Creatinine 0.68 Estimated GFR (MDRD) 115.00 BUN/Creatinine Ratio 23.38 Glucose 143.1 H Lactic Acid Calcium 8.43 Total Bilirubin 0.54 AST 100.5 H ALT 132.6 H Alkaline Phosphatase 124.2 H Total Creatine Kinase 254.5 H CK-MB (CK-2) 4.510 H CK-MB (CK-2) % 1.7700 Troponin I < 0.012 NT-Pro-B Natriuret Pep 135 Total Protein 7.37 Albumin 4.19 Globulin 3.18 Albumin/Globulin Ratio 1.31 Procalcitonin 0.17 H Influ A Molecular Assay Influ B Molecular Assay SARS CoV-2 RNA Rapid KIANNA 10/31/22 03:56 WBC RBC Hgb Hct MCV MCH MCHC RDW Coeff of Dayana Plt Count Immature Gran % (Auto) Neut % (Auto) Lymph % (Auto) [place] % (Auto) Eos % (Auto) Baso % (Auto) Neut # (Auto) Lymph # (Auto) [place] # (Auto) Eos # (Auto) Baso # (Auto) Immature Gran # (Auto) Puncture Site Base Excess O2 Saturation ABG pH ABG pCO2 ABG pO2 ABG HCO3 ABG Total CO2 Yasmany Test Hemoglobin Oxyhemoglobin Carboxyhemoglobin Total Hemoglobin FiO2 % Sodium Potassium Chloride Carbon Dioxide Anion Gap BUN Creatinine Estimated GFR (MDRD) BUN/Creatinine Ratio Glucose Lactic Acid 1.10 Calcium Total Bilirubin AST ALT Alkaline Phosphatase Total Creatine Kinase CK-MB (CK-2) CK-MB (CK-2) % Troponin I NT-Pro-B Natriuret Pep Total Protein Albumin Globulin Albumin/Globulin Ratio Procalcitonin Influ A Molecular Assay Influ B Molecular Assay SARS CoV-2 RNA Rapid KIANNA Orders Category Date Time Status ADMIT PATIENT INPATIENT .TO [facility] (MONITORED BED) ADMISSION 10/31/22 04:17 Active ABG DRAW REQUEST Stat CARDIO 10/31/22 03:35 Completed EKG-(ED ONLY) Stat CARDIO 10/31/22 03:34 Completed NEBULIZER TREATMENT Routine CARDIO 10/31/22 03:35 Completed NEBULIZER TREATMENT Routine CARDIO 10/31/22 04:25 Completed NEBULIZER TREATMENT Routine CARDIO 10/31/22 04:31 Active NEBULIZER TREATMENT Stat CARDIO 10/31/22 03:35 Completed NEBULIZER TREATMENT Stat CARDIO 10/31/22 04:31 Completed ACTIVITY .Up ad Mónica CARE 10/31/22 04:22 Active GIVE HS SNACK 2100 CARE 10/31/22 04:22 Active INTAKE & OUTPUT Q8HR CARE 10/31/22 04:21 Active TELEMETRY MONITORING TELE CARE 10/31/22 04:21 Active VITAL SIGNS Q4HR CARE 10/31/22 04:22 Completed ADA 1800 PRABHJOT. DIET DIETARY 10/31/22 Breakfast Ordered HS SNACK DIETARY 10/31/22 Dinner Ordered ED APPLY O2 .ONCE EMERGENCY 10/31/22 03:34 Active ED IV/MEDIPORT/POWERPORT .ONCE EMERGENCY 10/31/22 03:34 Active ABG COOX Stat LAB 10/31/22 03:50 Completed BLOOD CULTURE (ED ONLY) Stat LAB 10/31/22 03:56 Received CBC W/ AUTO DIFF DAILY@0600 LAB 11/01/22 06:00 Ordered CBC W/ AUTO DIFF Stat LAB 10/31/22 03:56 Completed COMPREHENSIVE METABOLIC PANEL DAILY@0600 LAB 11/01/22 06:00 Ordered COMPREHENSIVE METABOLIC PANEL Stat LAB 10/31/22 03:56 Completed CREATINE KINASE Q8H LAB 10/31/22 10:30 Ordered CREATINE KINASE Q8H LAB 10/31/22 18:30 Ordered CREATINE KINASE Stat LAB 10/31/22 03:56 Completed FLU A & B MOLECULAR [FLU A/B MOLECULAR] Stat LAB 10/31/22 03:50 Completed LACTIC ACID Stat LAB 10/31/22 03:56 Completed NT-PROBNP(ED) Stat LAB 10/31/22 03:56 Completed PROCALCITONIN Stat LAB 10/31/22 03:56 Completed SARS COV-2 RNA RAPID KIANNA Stat LAB 10/31/22 03:50 Completed TROPONIN I Q8H LAB 10/31/22 10:30 Ordered TROPONIN I Q8H LAB 10/31/22 18:30 Ordered TROPONIN I Stat LAB 10/31/22 03:56 Completed 0.9 % Sodium Chloride [Saline Flush] MEDS 10/31/22 03:34 Active 1 syr IVF PRN PRN Aspirin [Aspirin EC] MEDS 10/31/22 04:30 Active 81 mg PO DAILY Azithromycin Inj [Zithromax] 500 mg MEDS 10/31/22 05:30 Active 0.9 % Sodium Chloride [Sodium Chloride] 250 ml IV DAILY Budesonide [Pulmicort 1 mg/2 ml] MEDS 10/31/22 03:37 Discontinued 1 mg NEB ONCE ONE Budesonide/Formoterol Fumarate [Symbicort 160-4.5 Mcg MEDS 10/31/22 09:00 Active Inhaler] 2 puff IH BID Ceftriaxone/D5w 1 gm Premix [Rocephin 1 gm/50 ml D5w] MEDS 11/01/22 04:00 Active 1 gm in 50 ml IV 0400 Ceftriaxone/D5w 1 gm Premix [Rocephin 1 gm/50 ml D5w] MEDS 10/31/22 03:34 Discontinued 1 gm in 50 ml IV ONCE Enoxaparin Sodium [Lovenox] MEDS 10/31/22 09:00 Active 40 mg SUBCUT DAILY Fluticasone Propionate [Flonase] MEDS 10/31/22 09:00 Active 2 spray COMPA BID Insulin Glargine,Hum.rec.anlog [Lantus] MEDS 10/31/22 09:00 Active 90 unit SUBCUT DAILY Ipratropium [place] 0.02% Neb [Atrovent 0.02% Neb] MEDS 10/31/22 03:34 Discontinued 2.5 ml NEB ONCE ONE Ipratropium [place] 0.02% Neb [Atrovent 0.02% Neb] MEDS 10/31/22 04:31 Discontinued 2.5 ml NEB ONCE ONE Ipratropium [place] 0.02% Neb [Atrovent 0.02% Neb] MEDS 10/31/22 06:00 Active 2.5 ml NEB RTQ4H Lisinopril [Zestril] MEDS 10/31/22 04:30 Active 10 mg PO DAILY Methylprednisolone Sod Succ/Pf [Solu-Medrol 125 mg] MEDS 10/31/22 03:34 Discontinued 125 mg IVP ONCE STA Methylprednisolone Sod Succ/Pf [Solu-Medrol 125 mg] MEDS 10/31/22 09:30 Active 125 mg IVP Q6H Metoprolol Succinate [Toprol Xl] MEDS 10/31/22 04:30 Active 50 mg PO DAILY Morphine Sulfate [Morphine 2 mg/ml Syringe] MEDS 10/31/22 04:25 Active 2 mg IVP Q6H PRN Ondansetron HCl/Pf [Zofran 4 mg/2 ml] MEDS 10/31/22 04:22 Active 4 mg IVP Q6H PRN Pantoprazole Sodium [Protonix] MEDS 10/31/22 09:00 Active 40 mg PO BID Rosuvastatin Calcium [Crestor] MEDS 10/31/22 04:30 Active 40 mg PO DAILY diclofenac sodium MEDS 10/31/22 09:00 Pending 50 mg PO BID RESUSCITATION STATUS Routine OTHERS 10/31/22 04:17 Ordered CHEST, 1V AP ONLY Stat RADS 10/31/22 03:34 Completed Medications Generic Name Dose Route Start Last Admin Trade Name Freq PRN Reason Stop Dose Admin Aspirin 81 mg 10/31/22 04:30 10/31/22 06:10 Aspirin 81 Mg Tablet. PO 81 mg DAILY [facility] Administration Budesonide/Formoterol Fumarate 2 puff 10/31/22 09:00 Budesonide/Formoterol Fumarate 160/4.5 Mcg Inhaler IH BID [facility] Enoxaparin Sodium 40 mg 10/31/22 09:00 Enoxaparin Sodium 40 Mg/0.4 Ml Syr SUBCUT DAILY [facility] Fluticasone Propionate 2 spray 10/31/22 09:00 Fluticasone Propionate 16 Gm Nasal [place] COMPA BID [facility] CEFTRIAXONE/D5W 1 GM PREMIX 1 gm in 50 mls @ 75 mls/hr 11/01/22 04:00 Rocephin 1 Gm/50 Ml D5w IV 11/04/22 03:59 0400 MARILUZ Azithromycin 500 mg/ Sodium 250 mls @ 125 mls/hr 10/31/22 05:30 10/31/22 06:12 Chloride IV 11/03/22 05:29 125 mls/hr DAILY MARILUZ Administration Insulin Glargine 90 unit 10/31/22 09:00 Insulin Glargine,Hum.Rec.Anlog 100 Units/Ml SUBCUT DAILY [facility] Insulin Glargine 80 unit 10/31/22 21:00 Insulin Glargine,Hum.Rec.Anlog 100 Units/Ml SUBCUT BEDTIME [facility] Ipratropium [place] 2.5 ml 10/31/22 06:00 10/31/22 05:26 Ipratropium [place] 0.02% Vial.Neb NEB Not Given RTQ4H MARILUZ Lisinopril 10 mg 10/31/22 04:30 10/31/22 06:10 Lisinopril 10 Mg Tablet PO 10 mg DAILY MARILUZ Administration Lorazepam 0.5 mg 10/31/22 04:51 Lorazepam 0.5 Mg Tablet PO Q6H PRN Anxiety Methylprednisolone Sodium Succinate 125 mg 10/31/22 09:30 Methylprednisolone Sod Succ/Pf 125 Mg/2 Ml Vial IVP Q6H MARILUZ Metoprolol Succinate 50 mg 10/31/22 04:30 10/31/22 06:10 Metoprolol Succinate 50 Mg Tab.Er.24h PO 50 mg DAILY MARILUZ Administration Morphine Sulfate 2 mg 10/31/22 04:25 Morphine Sulfate 2 Mg/Ml Syringe IVP Q6H PRN Pain and Dyspnea Non-Formulary Medication 50 mg 10/31/22 09:00 Diclofenac Sodium PO BID [facility] Ondansetron HCl 4 mg 10/31/22 04:22 Ondansetron Hcl/Pf 4 Mg/2 Ml Sdv IVP Q6H PRN Nausea / Vomiting Pantoprazole Sodium 40 mg 10/31/22 09:00 Pantoprazole Sodium 40 Mg Tablet. PO BID MARILUZ Rosuvastatin Calcium 40 mg 10/31/22 04:30 10/31/22 06:10 Rosuvastatin Calcium 10 Mg Tablet PO 40 mg DAILY [facility] Administration Sodium Chloride 1 syr 10/31/22 03:34 0.9% Sodium Chloride 10 Ml Disp.Syrin IVF PRN PRN To flush IV Tiotropium [place] 1 cap 10/31/22 09:00 Tiotropium [place] 18 Mcg Cap.W.Dev IH DAILY MARILUZ Discontinued Medications Generic Name Dose Route Start Last Admin Trade Name Freq PRN Reason Stop Dose Admin Budesonide 1 mg 10/31/22 03:37 10/31/22 04:05 Budesonide 1 Mg/2 Ml Vial.Ginger SHAH 10/31/22 03:38 1 mg ONCE ONE Administration CEFTRIAXONE/D5W 1 GM PREMIX 1 gm in 50 mls @ 75 mls/hr 10/31/22 03:34 10/31/22 03:53 Rocephin 1 Gm/50 Ml D5w IV 10/31/22 04:13 75 mls/hr ONCE STA Administration Ipratropium [place] 2.5 ml 10/31/22 03:34 10/31/22 04:05 Ipratropium [place] 0.02% Vial.Neb [facility] 10/31/22 03:35 2.5 ml ONCE ONE Administration Ipratropium [place] 2.5 ml 10/31/22 04:31 10/31/22 04:43 Ipratropium [place] 0.02% Vial.[facility] 10/31/22 04:32 2.5 ml ONCE ONE Administration Methylprednisolone Sodium Succinate 125 mg 10/31/22 03:34 10/31/22 03:53 Methylprednisolone Sod Succ/Pf 125 Mg/2 Ml Vial IVP 10/31/22 03:35 125 mg ONCE STA Administration Vital Signs: Temp Pulse Resp BP Pulse Ox 10/31/22 03:00 98.0 F 86 18 186/112 H 96 Discharge Plan Discharge Patient Disposition: ADMITTED INPATIENT Discharge Problem: Acute exacerbation of chronic obstructive pulmonary disease (COPD) ED Provider: SPEEDY ROBERTS Condition: Fair Physician Progress Note: []
[2022-10-31 03:57] LABS: ABG O2 HGB 80.9 % (95-100); ABG PH 7.34 (7.35-7.45); BEecf 8.2 (-2.0-3.0); COHb 6.5 (0.5-1.5); MetHb 1.2 (0-1.5); TCO2 35.9 (19-24); sO2 83.3 % (94-98); tHb 18.4 g/dl (11.7-17.4)
[2022-10-31 04:01] LABS: BASOPHILS % (AUTO) 0.5 % (0.0-3.0); EOSINOPHILS # (AUTO) 0.3 K/ul (0.0-0.7); EOSINOPHILS % (AUTO) 3.6 % (0.0-7.0); HEMATOCRIT 55.6 % (42.0-52.0); HEMOGLOBIN 17.9 g/dl (14.0-18.0); IMMATURE GRANULOCYTE # (AUTO) 0.1 (0.0-1.0); LYMPHOCYTES # (AUTO) 2.4 K/uL (0.60-3.4); LYMPHOCYTES % (AUTO) 28.8 (10.0-50.0); MEAN CORPUSCULAR HEMOGLOBIN 31.4 pg (27.0-31.0); MEAN CORPUSCULAR HGB CONC 32.2 (31.8-35.4); MEAN CORPUSCULAR VOLUME 97.5 fl (80.0-94.0); MONOCYTES # (AUTO) 0.8 K/uL (0.4-2.0); MONOCYTES % (AUTO) 9.8 (0-10); NEUTROPHILS # (AUTO) 4.7 K/ul (2.0-6.9); NEUTROPHILS % (AUTO) 56.3 % (42.2-75.2); PLATELET COUNT 159 10^3/uL (140-440); RDW COEFFICIENT OF VARIATION 13.5 % (11.6-14.8); WHITE BLOOD COUNT 8.37 K/ul (4.2-10.2)
--- NOTE | 2022-10-31 04:05 | DI ---
EXAM: PORTABLE CHEST HISTORY: Shortness of breath COMPARISON: Two-view chest 09/28/2021 FINDINGS: The cardiomediastinal silhouette is stable.. There is no consolidation or effusion There i s a stable screw within the right glenoid. There is a stable fractured screw within the left glenoid . ACDF changes lower cervical spine. IMPRESSION: No evidence of active pulmonary disease or interval change.
[2022-10-31] MEDS ORDERED: ZOFRAN 4 MG/2 ML IVP PRN (04:22)
[2022-10-31 04:26] LABS: MOLECULAR FLU A NEGATIVE BY NAAT (NEGATIVE); MOLECULAR FLU B NEGATIVE BY NAAT (NEGATIVE)
[2022-10-31] MEDS ORDERED: ASPIRIN EC PO SCH (04:30)
[2022-10-31 04:34] LABS: ALANINE AMINOTRANSFERASE 132.6 U/L (0-50); ALBUMIN 4.19 g/dL (3.5-5.0); ALKALINE PHOSPHATASE 124.2 U/L (56-119); ASPARTATE AMINO TRANSFERASE 100.5 U/L (17-59); BILIRUBIN,TOTAL 0.54 mg/dL (0.2-1.3); BLOOD UREA NITROGEN 15.9 mg/dL (9-20); CALCIUM 8.43 mg/dL (8.4-10.2); CARBON DIOXIDE 32.3 mmol/L (22-30.0); CREATINE KINASE 254.5 U/L (55-170); CREATININE 0.68 mg/dL (0.60-1.10); GLUCOSE 143.1 mg/dL (74-106); POTASSIUM 4.45 mmol/L (3.5-5.1); SODIUM 138.6 mmol/L (134.5-145); TOTAL PROTEIN 7.37 g/dL (6.3-8.2); TROPONIN I < 0.012 ng/ml (0.0000-0.120)
[2022-10-31 04:35] LABS: SARS COV-2 RNA RAPID NAAT NEGATIVE (NEGATIVE)
[2022-10-31] MEDS ORDERED: ATIVAN PO PRN (04:51)
[2022-10-31 05:25] VITALS: BMI 34.9
[2022-10-31] MEDS: ATROVENT 0.02% NEB NEB SCH ×5 (05:26→21:45)
[2022-10-31] MEDS ORDERED: ZITHROMAX 500 MG in SODIUM CHLORIDE 250 ML IV SCH (05:30)
[2022-10-31] MEDS: TOPROL XL PO SCH (06:10)
[2022-10-31] MEDS: ZESTRIL PO SCH (06:10)
[2022-10-31] MEDS: CRESTOR PO SCH (06:10)
[2022-10-31] MEDS: FLONASE NAS SCH ×2 (08:29→20:58)
[2022-10-31] MEDS: SPIRIVA IH SCH (08:30)
[2022-10-31] MEDS: SYMBICORT 160-4.5 MCG INHALER IH SCH ×2 (08:32→20:22)
[2022-10-31] MEDS: PROTONIX PO SCH ×2 (08:33→17:36)
[2022-10-31] MEDS: LANTUS SUBCUT SCH ×2 (08:35→20:17)
[2022-10-31] MEDS: LOVENOX SUBCUT SCH (08:37)
[2022-10-31] MEDS: SOLU-MEDROL 125 MG IVP SCH ×3 (08:48→20:45)
--- NOTE | 2022-10-31 09:15 | PCM.PROG ---
Date Seen by Provider: 10/31/22 Time Seen by Provider: 09:12 Subjective: dx. copd Objective: Vitals: T=97.7 F, P=77, R=22, FC=654/73, SPO2=96 HEENT: []conjunctiva clear Neck: []supple Lungs: [] wheeze CVS: []rrr Abdomen: []nondistended Extremities: []warm and dry, trace edema Neurological: []alert Skin: []pink Lab/Tests/Diagnostic Imaging: [] pH 7.34/63/51RA, wbc 8.3 Plan: start lasix 20 qd and potassium 20 qd, continue oxygen 2liters nc, duo nebs discharge tomorrow
[2022-10-31] MEDS: LASIX IVP SCH (09:38)
[2022-10-31] MEDS: K-DUR PO SCH (09:38)
[2022-10-31 10:48] LABS: CREATINE KINASE 232.6 U/L (55-170)
[2022-10-31 11:04] LABS: TROPONIN I < 0.012 ng/ml (0.0000-0.120)
[2022-10-31] MEDS: NORCO 10-325 PO PRN (14:59)
[2022-10-31] MEDS: HUMULIN R SUBCUT PRN ×2 (17:36→20:15)
[2022-10-31] MEDS: CEPACOL SORE THROAT LOZENGE MUCOUSMEMB PRN (18:18)
[2022-10-31 19:02] LABS: CREATINE KINASE 204.8 U/L (55-170)
[2022-10-31 19:17] LABS: TROPONIN I < 0.012 ng/ml (0.0000-0.120)
[2022-10-31] MEDS: ROCEPHIN 1 GM/50 ML D5W 1 GM/50 ML BAG IV SCH (20:14)
[2022-10-31] MEDS ORDERED: LANTUS SUBCUT SCH (21:00)
[2022-10-31] MEDS: MORPHINE 2 MG/ML SYRINGE IVP PRN (21:49)
[2022-11-01] MEDS: NORCO 10-325 PO PRN ×3 (00:32→21:50)
[2022-11-01] MEDS: ATROVENT 0.02% NEB NEB SCH ×7 (02:00→21:10)
[2022-11-01] MEDS: SOLU-MEDROL 125 MG IVP SCH ×4 (04:30→20:58)
[2022-11-01 05:19] LABS: BASOPHILS % (AUTO) 0.1 % (0.0-3.0); HEMOGLOBIN 17.5 g/dl (14.0-18.0); IMMATURE GRANULOCYTE # (AUTO) 0.1 (0.0-1.0); IMMATURE GRANULOCYTE % (AUTO) 0.8 % (0.0-5.0); LYMPHOCYTES # (AUTO) 1.5 K/uL (0.60-3.4); LYMPHOCYTES % (AUTO) 10.3 (10.0-50.0); MEAN CORPUSCULAR HGB CONC 32.4 (31.8-35.4); MEAN CORPUSCULAR VOLUME 95.7 fl (80.0-94.0); MONOCYTES # (AUTO) 0.6 K/uL (0.4-2.0); MONOCYTES % (AUTO) 4.1 (0-10); NEUTROPHILS # (AUTO) 12.5 K/ul (2.0-6.9); NEUTROPHILS % (AUTO) 84.7 % (42.2-75.2); PLATELET COUNT 187 10^3/uL (140-440); RDW COEFFICIENT OF VARIATION 13.2 % (11.6-14.8); RED BLOOD COUNT 5.64 10^6/ul (4.70-6.10); WHITE BLOOD COUNT 14.72 K/ul (4.2-10.2)
[2022-11-01 05:32] LABS: ALANINE AMINOTRANSFERASE 83.1 U/L (0-50); ALBUMIN 4.19 g/dL (3.5-5.0); ALKALINE PHOSPHATASE 104.6 U/L (56-119); ASPARTATE AMINO TRANSFERASE 41.3 U/L (17-59); BILIRUBIN,TOTAL 0.48 mg/dL (0.2-1.3); BLOOD UREA NITROGEN 22.1 mg/dL (9-20); CARBON DIOXIDE 29.6 mmol/L (22-30.0); CHLORIDE 97.6 mmol/L (98-107); CREATININE 0.66 mg/dL (0.60-1.10); GLUCOSE 274.3 mg/dL (74-106); POTASSIUM 4.36 mmol/L (3.5-5.1); TOTAL PROTEIN 7.27 g/dL (6.3-8.2)
[2022-11-01] MEDS: LASIX IVP SCH (05:41)
[2022-11-01] MEDS: PROTONIX PO SCH ×2 (05:42→16:07)
[2022-11-01] MEDS: HUMULIN R SUBCUT PRN ×4 (05:54→20:18)
[2022-11-01] MEDS ORDERED: LASIX IVP SCH (06:30)
[2022-11-01] MEDS ORDERED: K-DUR PO SCH (08:30)
--- NOTE | 2022-11-01 08:33 | PCM.PROG ---
Date Seen by Provider: 11/01/22 Time Seen by Provider: 07:45 Subjective: Feeling better though easily becomes dyspneic even with simply talking. Objective: Vitals: T=97.6 F, P=93, R=20, GT=696/90, SPO2=90 Alert. Breathing without difficulty. Mildly dyspneic with conversation. HEENT: [] Neck: [] Supple. Lungs: [] Clear. BS equal though decreased bilaterally. CVS: [] Abdomen: [] Extremities: [] Neurological: [] Skin: [] Lab/Tests/Diagnostic Imaging: [] (1) Acute exacerbation of chronic obstructive pulmonary disease (COPD): Status: Acute Code(s): J44.1 - Chronic obstructive pulmonary disease with (acute) exacerbation SNOMED Code(s): 884028576 Assessment: Improving, but patient appears to have significant COPD. (2) Current smoker: Status: Acute Code(s): F17.200 - Nicotine dependence, unspecified, uncomplicated SNOMED Code(s): 37060116 (3) Shortness of breath: Status: Acute Code(s): R06.02 - Shortness of breath SNOMED Code(s): 918933952 Plan: Encouraged patient to stop smoking. Will provide nicotine patch. Continue present measures;steroids, nebs,etc.
[2022-11-01] MEDS: ZITHROMAX 500 MG in SODIUM CHLORIDE 250 ML IV SCH (10:06)
[2022-11-01] MEDS: CRESTOR PO SCH (10:10)
[2022-11-01] MEDS: ZESTRIL PO SCH (10:11)
[2022-11-01] MEDS: K-DUR PO SCH (10:11)
[2022-11-01] MEDS: TOPROL XL PO SCH (10:12)
[2022-11-01] MEDS: ASPIRIN EC PO SCH (10:12)
[2022-11-01] MEDS: NICODERM 21 MG TD SCH (10:13)
[2022-11-01] MEDS: LANTUS SUBCUT SCH ×2 (10:15→20:16)
[2022-11-01] MEDS: LOVENOX SUBCUT SCH (10:20)
[2022-11-01] MEDS: SPIRIVA IH SCH (10:37)
[2022-11-01] MEDS: SYMBICORT 160-4.5 MCG INHALER IH SCH ×2 (10:37→20:10)
[2022-11-01] MEDS: FLONASE NAS SCH ×2 (10:38→20:10)
[2022-11-01] MEDS: ROCEPHIN 1 GM/50 ML D5W 1 GM/50 ML BAG IV SCH (20:11)
[2022-11-01] MEDS: CEPACOL SORE THROAT LOZENGE MUCOUSMEMB PRN (23:54)
[2022-11-02] MEDS: ATROVENT 0.02% NEB NEB SCH ×3 (01:17→10:23)
[2022-11-02] MEDS: MORPHINE 2 MG/ML SYRINGE IVP PRN (01:22)
[2022-11-02] MEDS: SOLU-MEDROL 125 MG IVP SCH ×2 (02:40→10:06)
[2022-11-02 05:27] LABS: BASOPHILS % (AUTO) 0.1 % (0.0-3.0); EOSINOPHILS % (AUTO) 0.1 % (0.0-7.0); HEMATOCRIT 54.4 % (42.0-52.0); HEMOGLOBIN 17.9 g/dl (14.0-18.0); IMMATURE GRANULOCYTE # (AUTO) 0.2 (0.0-1.0); IMMATURE GRANULOCYTE % (AUTO) 1.2 % (0.0-5.0); LYMPHOCYTES # (AUTO) 1.3 K/uL (0.60-3.4); LYMPHOCYTES % (AUTO) 7.1 (10.0-50.0); MEAN CORPUSCULAR HEMOGLOBIN 31.7 pg (27.0-31.0); MEAN CORPUSCULAR HGB CONC 32.9 (31.8-35.4); MEAN CORPUSCULAR VOLUME 96.3 fl (80.0-94.0); MONOCYTES # (AUTO) 0.9 K/uL (0.4-2.0); MONOCYTES % (AUTO) 4.9 (0-10); NEUTROPHILS # (AUTO) 16.3 K/ul (2.0-6.9); NEUTROPHILS % (AUTO) 86.6 % (42.2-75.2); PLATELET COUNT 195 10^3/uL (140-440); RDW COEFFICIENT OF VARIATION 13.6 % (11.6-14.8); RED BLOOD COUNT 5.65 10^6/ul (4.70-6.10)
[2022-11-02 05:31] VITALS: BP 144/74; TEMP 97.2
[2022-11-02 05:41] LABS: ALBUMIN 4.38 g/dL (3.5-5.0); ALKALINE PHOSPHATASE 101.1 U/L (56-119); ASPARTATE AMINO TRANSFERASE 35.6 U/L (17-59); BILIRUBIN,TOTAL 0.55 mg/dL (0.2-1.3); BLOOD UREA NITROGEN 22.6 mg/dL (9-20); CALCIUM 8.76 mg/dL (8.4-10.2); CARBON DIOXIDE 32.5 mmol/L (22-30.0); CHLORIDE 97.8 mmol/L (98-107); CREATININE 0.65 mg/dL (0.60-1.10); GLUCOSE 245.1 mg/dL (74-106); POTASSIUM 4.1 mmol/L (3.5-5.1); SODIUM 138.8 mmol/L (134.5-145); TOTAL PROTEIN 7.53 g/dL (6.3-8.2)
[2022-11-02] MEDS: LASIX IVP SCH (05:44)
[2022-11-02] MEDS: PROTONIX PO SCH (05:44)
[2022-11-02] MEDS: HUMULIN R SUBCUT PRN ×2 (06:10→12:03)
[2022-11-02] MEDS: NORCO 10-325 PO PRN (07:53)
[2022-11-02] MEDS: CRESTOR PO SCH (09:37)
[2022-11-02] MEDS: TOPROL XL PO SCH (09:37)
[2022-11-02] MEDS: ZESTRIL PO SCH (09:38)
[2022-11-02] MEDS: K-DUR PO SCH (09:38)
[2022-11-02] MEDS: ASPIRIN EC PO SCH (09:38)
[2022-11-02] MEDS: SPIRIVA IH SCH (09:38)
[2022-11-02] MEDS: SYMBICORT 160-4.5 MCG INHALER IH SCH (09:38)
[2022-11-02] MEDS: NICODERM 21 MG TD SCH (09:38)
[2022-11-02] MEDS: FLONASE NAS SCH (09:38)
[2022-11-02] MEDS: LANTUS SUBCUT SCH (09:39)
[2022-11-02] MEDS: ZITHROMAX 500 MG in SODIUM CHLORIDE 250 ML IV SCH (09:40)
[2022-11-02] MEDS: LOVENOX SUBCUT SCH (09:40)
--- NOTE | 2022-11-02 18:16 | PCM.DC ---
Final Diagnosis: COPD exacerbation Physical Exam Appearance: Well-appearing and Well-nourished Eyes: EOMI and Conjunctiva clear ENT: Nose normal Neck: Supple Respiratory: Airway patent, Breath sounds clear and Breath sounds equal Cardiovascular: RRR, Pulses normal, No rub and No murmur GI/: Other (obese ) Musculoskeletal: Normal strength, ROM intact, No edema, No calf tenderness, Limited ROM, Limited strength, Edema, Calf tenderness, Other and Not Examined Skin: Warm, Dry, Normal color, Pale, Diaphoretic, Cyanotic, Other and Not Examined Neurological: Motor intact, Alert and Oriented Psychiatric: Anxious (1) Acute exacerbation of chronic obstructive pulmonary disease (COPD): Status: Acute Code(s): J44.1 - Chronic obstructive pulmonary disease with (acute) exacerbation SNOMED Code(s): 866480091 (2) Current smoker: Status: Acute Code(s): F17.200 - Nicotine dependence, unspecified, uncomplicated SNOMED Code(s): 34023869 (3) Shortness of breath: Status: Acute Code(s): R06.02 - Shortness of breath SNOMED Code(s): 016916179 Reason for Hospitalization: COPD exacerationa with shortness of breath feeling he was drawning Prognosis/Condition at Discharge: Symptoms Resolved with lungs clear to auscultation Medications at Discharge: Prednisone, Nicotine patch Short acting insulin Lab/Diagnostics: Comprehensive Lab Summary 10/31/22 10/31/22 10/31/22 Range/Units 03:50 03:50 03:50 WBC (4.2-10.2) K/ul RBC (4.70-6.10) 10^6/ul Hgb (14.0-18.0) g/dl Hct (42.0-52.0) % MCV (80.0-94.0) fl MCH (27.0-31.0) pg MCHC (31.8-35.4) RDW Coeff of Dayana (11.6-14.8) % Plt Count (140-440) 10^3/uL Immature Gran % (Auto) (0.0-5.0) % Neut % (Auto) (42.2-75.2) % Lymph % (Auto) (10.0-50.0) Carson % (Auto) (0-10) Eos % (Auto) (0.0-7.0) % Baso % (Auto) (0.0-3.0) % Neut # (Auto) (2.0-6.9) K/ul Lymph # (Auto) (0.60-3.4) K/uL Carson # (Auto) (0.4-2.0) K/uL Eos # (Auto) (0.0-0.7) K/ul Baso # (Auto) (0-0.2) K/uL Immature Gran # (Auto) (0.0-1.0) Puncture Site Lb Base Excess 8.2 H (-2.0-3.0) O2 Saturation 83.3 L (94-98) % ABG pH 7.34 L (7.35-7.45) ABG pCO2 63.0 H (35-45) mmHg ABG pO2 51.0 L* (85-100) mmHg ABG HCO3 34.0 H (21-28) ABG Total CO2 35.9 H (19-24) Yasmany Test + Hemoglobin 1.2 (0-1.5) Oxyhemoglobin 80.9 L (95-100) % Carboxyhemoglobin 6.5 H (0.5-1.5) Total Hemoglobin 18.4 H (11.7-17.4) g/dl FiO2 % 21.0 % Sodium (134.5-145) mmol/L Potassium (3.5-5.1) mmol/L Chloride (98-107) mmol/L Carbon Dioxide (22-30.0) mmol/L Anion Gap BUN (9-20) mg/dL Creatinine (0.60-1.10) mg/dL Estimated GFR (MDRD) mL/min BUN/Creatinine Ratio Glucose (74-106) mg/dL Lactic Acid (0.7-2.1) mmol/L Calcium (8.4-10.2) mg/dL Total Bilirubin (0.2-1.3) mg/dL AST (17-59) U/L ALT (0-50) U/L Alkaline Phosphatase (56-119) U/L Total Creatine Kinase (55-170) U/L CK-MB (CK-2) (0.0-2.38) ng/ml CK-MB (CK-2) % Troponin I (0.0000-0.120) ng/ml NT-Pro-B Natriuret Pep (0-299) pg/mL Total Protein (6.3-8.2) g/dL Albumin (3.5-5.0) g/dL Globulin Albumin/Globulin Ratio Procalcitonin (<0.05) ng/mL Influ A Molecular Assay Negative by naat (NEGATIVE) Influ B Molecular Assay Negative by naat (NEGATIVE) SARS CoV-2 RNA Rapid KIANNA Negative (NEGATIVE) 10/31/22 10/31/22 10/31/22 Range/Units 03:56 03:56 03:56 WBC 8.37 (4.2-10.2) K/ul RBC 5.70 (4.70-6.10) 10^6/ul Hgb 17.9 (14.0-18.0) g/dl Hct 55.6 H (42.0-52.0) % MCV 97.5 H (80.0-94.0) fl MCH 31.4 H (27.0-31.0) pg MCHC 32.2 (31.8-35.4) RDW Coeff of Dayana 13.5 (11.6-14.8) % Plt Count 159 (140-440) 10^3/uL Immature Gran % (Auto) 1.0 (0.0-5.0) % Neut % (Auto) 56.3 (42.2-75.2) % Lymph % (Auto) 28.8 (10.0-50.0) Carson % (Auto) 9.8 (0-10) Eos % (Auto) 3.6 (0.0-7.0) % Baso % (Auto) 0.5 (0.0-3.0) % Neut # (Auto) 4.7 (2.0-6.9) K/ul Lymph # (Auto) 2.4 (0.60-3.4) K/uL Carson # (Auto) 0.8 (0.4-2.0) K/uL Eos # (Auto) 0.3 (0.0-0.7) K/ul Baso # (Auto) 0.0 (0-0.2) K/uL Immature Gran # (Auto) 0.1 (0.0-1.0) Puncture Site Base Excess (-2.0-3.0) O2 Saturation (94-98) % ABG pH (7.35-7.45) ABG pCO2 (35-45) mmHg ABG pO2 (85-100) mmHg ABG HCO3 (21-28) ABG Total CO2 (19-24) Yasmany Test Hemoglobin (0-1.5) Oxyhemoglobin (95-100) % Carboxyhemoglobin (0.5-1.5) Total Hemoglobin (11.7-17.4) g/dl FiO2 % % Sodium 138.6 (134.5-145) mmol/L Potassium 4.45 (3.5-5.1) mmol/L Chloride 101.0 (98-107) mmol/L Carbon Dioxide 32.3 H (22-30.0) mmol/L Anion Gap 9.75 BUN 15.9 (9-20) mg/dL Creatinine 0.68 (0.60-1.10) mg/dL Estimated GFR (MDRD) 115.00 mL/min BUN/Creatinine Ratio 23.38 Glucose 143.1 H (74-106) mg/dL Lactic Acid (0.7-2.1) mmol/L Calcium 8.43 (8.4-10.2) mg/dL Total Bilirubin 0.54 (0.2-1.3) mg/dL AST 100.5 H (17-59) U/L ALT 132.6 H (0-50) U/L Alkaline Phosphatase 124.2 H (56-119) U/L Total Creatine Kinase 254.5 H (55-170) U/L CK-MB (CK-2) 4.510 H (0.0-2.38) ng/ml CK-MB (CK-2) % 1.7700 Troponin I < 0.012 (0.0000-0.120) ng/ml NT-Pro-B Natriuret Pep 135 (0-299) pg/mL Total Protein 7.37 (6.3-8.2) g/dL Albumin 4.19 (3.5-5.0) g/dL Globulin 3.18 Albumin/Globulin Ratio 1.31 Procalcitonin 0.17 H (<0.05) ng/mL Influ A Molecular Assay (NEGATIVE) Influ B Molecular Assay (NEGATIVE) SARS CoV-2 RNA Rapid KIANNA (NEGATIVE) 10/31/22 10/31/22 10/31/22 Range/Units 03:56 10:33 18:40 WBC (4.2-10.2) K/ul RBC (4.70-6.10) 10^6/ul Hgb (14.0-18.0) g/dl Hct (42.0-52.0) % MCV (80.0-94.0) fl MCH (27.0-31.0) pg MCHC (31.8-35.4) RDW Coeff of Dayana (11.6-14.8) % Plt Count (140-440) 10^3/uL Immature Gran % (Auto) (0.0-5.0) % Neut % (Auto) (42.2-75.2) % Lymph % (Auto) (10.0-50.0) Carson % (Auto) (0-10) Eos % (Auto) (0.0-7.0) % Baso % (Auto) (0.0-3.0) % Neut # (Auto) (2.0-6.9) K/ul Lymph # (Auto) (0.60-3.4) K/uL Carson # (Auto) (0.4-2.0) K/uL Eos # (Auto) (0.0-0.7) K/ul Baso # (Auto) (0-0.2) K/uL Immature Gran # (Auto) (0.0-1.0) Puncture Site Base Excess (-2.0-3.0) O2 Saturation (94-98) % ABG pH (7.35-7.45) ABG pCO2 (35-45) mmHg ABG pO2 (85-100) mmHg ABG HCO3 (21-28) ABG Total CO2 (19-24) Yasmany Test Hemoglobin (0-1.5) Oxyhemoglobin (95-100) % Carboxyhemoglobin (0.5-1.5) Total Hemoglobin (11.7-17.4) g/dl FiO2 % % Sodium (134.5-145) mmol/L Potassium (3.5-5.1) mmol/L Chloride (98-107) mmol/L Carbon Dioxide (22-30.0) mmol/L Anion Gap BUN (9-20) mg/dL Creatinine (0.60-1.10) mg/dL Estimated GFR (MDRD) mL/min BUN/Creatinine Ratio Glucose (74-106) mg/dL Lactic Acid 1.10 (0.7-2.1) mmol/L Calcium (8.4-10.2) mg/dL Total Bilirubin (0.2-1.3) mg/dL AST (17-59) U/L ALT (0-50) U/L Alkaline Phosphatase (56-119) U/L Total Creatine Kinase 232.6 H 204.8 H (55-170) U/L CK-MB (CK-2) 4.100 H 3.210 H (0.0-2.38) ng/ml CK-MB (CK-2) % 1.7600 1.5600 Troponin I < 0.012 < 0.012 (0.0000-0.120) ng/ml NT-Pro-B Natriuret Pep (0-299) pg/mL Total Protein (6.3-8.2) g/dL Albumin (3.5-5.0) g/dL Globulin Albumin/Globulin Ratio Procalcitonin (<0.05) ng/mL Influ A Molecular Assay (NEGATIVE) Influ B Molecular Assay (NEGATIVE) SARS CoV-2 RNA Rapid KIANNA (NEGATIVE) 11/01/22 11/01/22 11/02/22 Range/Units 04:50 04:50 05:04 WBC 14.72 H D 18.80 H (4.2-10.2) K/ul RBC 5.64 5.65 (4.70-6.10) 10^6/ul Hgb 17.5 17.9 (14.0-18.0) g/dl Hct 54.0 H 54.4 H (42.0-52.0) % MCV 95.7 H 96.3 H (80.0-94.0) fl MCH 31.0 31.7 H (27.0-31.0) pg MCHC 32.4 32.9 (31.8-35.4) RDW Coeff of Dayana 13.2 13.6 (11.6-14.8) % Plt Count 187 195 (140-440) 10^3/uL Immature Gran % (Auto) 0.8 1.2 (0.0-5.0) % Neut % (Auto) 84.7 H 86.6 H (42.2-75.2) % Lymph % (Auto) 10.3 7.1 L (10.0-50.0) Carson % (Auto) 4.1 4.9 (0-10) Eos % (Auto) 0.0 0.1 (0.0-7.0) % Baso % (Auto) 0.1 0.1 (0.0-3.0) % Neut # (Auto) 12.5 H 16.3 H (2.0-6.9) K/ul Lymph # (Auto) 1.5 1.3 (0.60-3.4) K/uL Carson # (Auto) 0.6 0.9 (0.4-2.0) K/uL Eos # (Auto) 0.0 0.0 (0.0-0.7) K/ul Baso # (Auto) 0.0 0.0 (0-0.2) K/uL Immature Gran # (Auto) 0.1 0.2 (0.0-1.0) Puncture Site Base Excess (-2.0-3.0) O2 Saturation (94-98) % ABG pH (7.35-7.45) ABG pCO2 (35-45) mmHg ABG pO2 (85-100) mmHg ABG HCO3 (21-28) ABG Total CO2 (19-24) Yasmany Test Hemoglobin (0-1.5) Oxyhemoglobin (95-100) % Carboxyhemoglobin (0.5-1.5) Total Hemoglobin (11.7-17.4) g/dl FiO2 % % Sodium 135.0 (134.5-145) mmol/L Potassium 4.36 (3.5-5.1) mmol/L Chloride 97.6 L (98-107) mmol/L Carbon Dioxide 29.6 (22-30.0) mmol/L Anion Gap 12.16 BUN 22.1 H (9-20) mg/dL Creatinine 0.66 (0.60-1.10) mg/dL Estimated GFR (MDRD) 119.00 mL/min BUN/Creatinine Ratio 33.48 Glucose 274.3 H (74-106) mg/dL Lactic Acid (0.7-2.1) mmol/L Calcium 9.00 (8.4-10.2) mg/dL Total Bilirubin 0.48 (0.2-1.3) mg/dL AST 41.3 D (17-59) U/L ALT 83.1 H D (0-50) U/L Alkaline Phosphatase 104.6 (56-119) U/L Total Creatine Kinase (55-170) U/L CK-MB (CK-2) (0.0-2.38) ng/ml CK-MB (CK-2) % Troponin I (0.0000-0.120) ng/ml NT-Pro-B Natriuret Pep (0-299) pg/mL Total Protein 7.27 (6.3-8.2) g/dL Albumin 4.19 (3.5-5.0) g/dL Globulin 3.08 Albumin/Globulin Ratio 1.36 Procalcitonin (<0.05) ng/mL Influ A Molecular Assay (NEGATIVE) Influ B Molecular Assay (NEGATIVE) SARS CoV-2 RNA Rapid KIANNA (NEGATIVE) 11/02/22 Range/Units 05:04 WBC (4.2-10.2) K/ul RBC (4.70-6.10) 10^6/ul Hgb (14.0-18.0) g/dl Hct (42.0-52.0) % MCV (80.0-94.0) fl MCH (27.0-31.0) pg MCHC (31.8-35.4) RDW Coeff of Dayana (11.6-14.8) % Plt Count (140-440) 10^3/uL Immature Gran % (Auto) (0.0-5.0) % Neut % (Auto) (42.2-75.2) % Lymph % (Auto) (10.0-50.0) Carson % (Auto) (0-10) Eos % (Auto) (0.0-7.0) % Baso % (Auto) (0.0-3.0) % Neut # (Auto) (2.0-6.9) K/ul Lymph # (Auto) (0.60-3.4) K/uL Carson # (Auto) (0.4-2.0) K/uL Eos # (Auto) (0.0-0.7) K/ul Baso # (Auto) (0-0.2) K/uL Immature Gran # (Auto) (0.0-1.0) Puncture Site Base Excess (-2.0-3.0) O2 Saturation (94-98) % ABG pH (7.35-7.45) ABG pCO2 (35-45) mmHg ABG pO2 (85-100) mmHg ABG HCO3 (21-28) ABG Total CO2 (19-24) Yasmany Test Hemoglobin (0-1.5) Oxyhemoglobin (95-100) % Carboxyhemoglobin (0.5-1.5) Total Hemoglobin (11.7-17.4) g/dl FiO2 % % Sodium 138.8 (134.5-145) mmol/L Potassium 4.10 (3.5-5.1) mmol/L Chloride 97.8 L (98-107) mmol/L Carbon Dioxide 32.5 H (22-30.0) mmol/L Anion Gap 12.60 BUN 22.6 H (9-20) mg/dL Creatinine 0.65 (0.60-1.10) mg/dL Estimated GFR (MDRD) 121.00 mL/min BUN/Creatinine Ratio 34.76 Glucose 245.1 H (74-106) mg/dL Lactic Acid (0.7-2.1) mmol/L Calcium 8.76 (8.4-10.2) mg/dL Total Bilirubin 0.55 (0.2-1.3) mg/dL AST 35.6 (17-59) U/L ALT 69.0 H (0-50) U/L Alkaline Phosphatase 101.1 (56-119) U/L Total Creatine Kinase (55-170) U/L CK-MB (CK-2) (0.0-2.38) ng/ml CK-MB (CK-2) % Troponin I (0.0000-0.120) ng/ml NT-Pro-B Natriuret Pep (0-299) pg/mL Total Protein 7.53 (6.3-8.2) g/dL Albumin 4.38 (3.5-5.0) g/dL Globulin 3.15 Albumin/Globulin Ratio 1.39 Procalcitonin (<0.05) ng/mL Influ A Molecular Assay (NEGATIVE) Influ B Molecular Assay (NEGATIVE) SARS CoV-2 RNA Rapid KIANNA (NEGATIVE) 10/31/22 03:56 Blood Blood Culture - Preliminary NEGATIVE AFTER 2 DAYS. Education Provided to Patient and Family: Stop smoking Follow-ups: with PCp in one week Discharge Disposition: Home Hospital Course: Continued to improved with q4 hours breathing treatments, IV antibitoics and IV steroids. Plan: Discharge home
== END 2022-11-02 14:15 | disposition home or self-care (01) | DRG 192 ==
LOC: ED 02:59 → MEDSURG A 04:40
PROVIDERS: ADMIT Internal Medicine Geriatric Medicine; ATTEND Internal Medicine Geriatric Medicine
DX: M19.90 Unspecified osteoarthritis, unspecified site; K21.9 Gastro-esophageal reflux disease without esophagitis; Z20.822 Contact with and (suspected) exposure to COVID-19; I10 Essential (primary) hypertension; Z79.4 Long term (current) use of insulin; E78.00 Pure hypercholesterolemia, unspecified; Z79.899 Other long term (current) drug therapy; J37.0 Chronic laryngitis; F17.210 Nicotine dependence, cigarettes, uncomplicated; J30.9 Allergic rhinitis, unspecified; Z51.81 Encounter for therapeutic drug level monitoring; E11.65 Type 2 diabetes mellitus with hyperglycemia; Z79.01 Long term (current) use of anticoagulants; R06.02 Shortness of breath; M54.50 Low back pain, unspecified; J44.1 Chronic obstructive pulmonary disease with (acute) exacerbation

== ENCOUNTER 2023-12-25 11:55 | Inpatient (IN) ==
--- NOTE | 2023-12-25 12:17 | ED.PDOC ---
General ED Provider: Dr. REMI DOE MD Chief Complaint: Shortness of Air Stated Complaint: Patient with history of COPD, hypertension, type 2 diabetes, long standing smoker complains of a chronic cough states his dyspnea is progressively worse upon exertion denies fever, chills, arthralgia. Patient denies chest pain, diaphoresis, palpitations. Time Seen by Provider: 12/25/23 12:10 Mode of Arrival: Walk-In Information Source: Patient Exam Limitations: Clinical condition Primary Care Provider: SANDHYA GOMEZ APRN, CONTINUOUS MINER OPERATOR-C Nursing and Triage Documentation Reviewed and Agree: Yes What is Opioid Naive?: *Opioid Naive implies the patient is not already taking opioids or not chronically receiving opioids on a daily basis. *PRN dosing is not "usually" associated with tolerance. *Patients are at higher risk of over-sedation and aspiration. What is Opioid Tolerant?: *Opioid Tolerance implies less than the expected response to an opioid. *Acquired tolerance is defined by the patient taking 60mg of oral morphine daily (or equianalgesic dose of another opioid) for 1 week or more. *Often associated with chronic pain. *May take more than usual dose to achieve desired pain control. Review of Systems Review Of Systems Constitutional: Reports No symptoms Eyes: Reports No symptoms Ears, Nose, Mouth, Throat: Reports No symptoms Respiratory: Reports Cough and Shortness of Breath Cardiac: Reports No symptoms GI: Reports No symptoms : Reports No symptoms Musculoskeletal: Reports No symptoms Skin: Reports No symptoms Neurological: Reports No symptoms Endocrine: Reports No symptoms Hematologic/Lymphatic: Reports No symptoms All Other Systems: Reviewed and Negative [facility] Medical History Right hip pain M25.551 - Pain in right hip (ICD-10) Diverticulitis K57.92 - Diverticulitis of intestine, part unspecified, without perforation or abscess without bleeding (ICD-10) Biceps muscle tear S46.219A - Strain of muscle, fascia and tendon of other parts of biceps, unspecified arm, initial encounter (ICD-10) Umbilical hernia K42.9 - Umbilical hernia without obstruction or gangrene (ICD-10) Hiatal hernia K44.9 - Diaphragmatic hernia without obstruction or gangrene (ICD-10) Osteoarthritis M19.90 - Unspecified osteoarthritis, unspecified site (ICD-10) Hyperlipidemia E78.5 - Hyperlipidemia, unspecified (ICD-10) GERD (gastroesophageal reflux disease) K21.9 - Gastro-esophageal reflux disease without esophagitis (ICD-10) COPD (chronic obstructive pulmonary disease) J44.9 - Chronic obstructive pulmonary disease, unspecified (ICD-10) Chronic laryngitis J37.0 - Chronic laryngitis (ICD-10) Chronic neck pain M54.2 - Cervicalgia (ICD-10) G89.29 - Other chronic pain (ICD-10) Chronic back pain M54.9 - Dorsalgia, unspecified (ICD-10) G89.29 - Other chronic pain (ICD-10) Family History Mother Breast cancer, left Breast cancer, right Cancer Lung cancer FATHER Diabetes Cardiac disease Hyperlipidemia Cancer SISTER Breast cancer, left Breast cancer, right Cancer BROTHER Lung cancer SISTER Breast cancer Social History Smoking and tobacco status: Current every day smoker Tobacco type: cigarettes Smoking packs per day: 0.5 Smoking cigarettes per day: 62 Tobacco: How many years used: 60 Passive smoking exposure: No Quit status: considering quitting Second hand smoke exposure: No Smoking risk assessment performed: No Alcohol intake: current Alcohol intake frequency: a few times a week Alcohol type: wine Counseling given: No Counseling provided: none Substance use type: does not use Counseling given: No Counseling provided: none Kaitlin/uatsdin: LATTER DAY Special kaitlin needs: No Agree to transfusion: Yes Adopted: No Caregiver/support person: No Foster care: No Household members: family Housing: house Marital status: D Lives independently: Yes Daycare: no daycare Number of children: 7 Number of grandchildren: 13 Highest education level completed: 7th grade Financial difficulty paying for basics: not very hard service: No USP: No Current occupational status: disabled Current occupational exposures/hazards: No Pets and animals: No Leisure activites: music and fishing History of recent travel: Yes Sexually active: Yes Do you think of yourself as: straight/heterosexual Current gender identity: male Seatbelt use: always Helmet use: No Drives intoxicated or rides with intoxicated driver's education instructor: No Current diet type/program: regular Well-balanced diet: rarely Caffeine: Yes Eating out: rarely or never Reads food labels: seldom or never During the past year weight has: increased > 10 lbs Water heater temperature set < 120 degrees: Yes Working smoke detector in home: Yes Fire extinguisher in home: Yes Carbon monoxide detector in home: Yes Firearms in home: Yes Firearms unloaded and locked: Yes What type of physical activity do you participate in?: none Physical activity functional status: independent ambulation How many days of moderate to strenuous exercise, like a brisk walk, did you do in the last 7 days: 0 Surgical History History of circumcision History of colectomy History of excision of lamina of cervical vertebra for decompression of spinal cord History of fusion of cervical spine History of rotator cuff surgery Physical Exam Physical Exam Appearance: Reports Ill-appearing Ill-appearing: Mild Pain Distress: None Eyes: Reports TAVIA, EOMI and Conjunctiva clear ENT: Reports Ears normal, Nose normal and Oropharynx normal Neck: Supple Respiratory: Reports Airway patent and Breath sounds diminished (Breath sounds are diminished bilaterally one third way up posteriorly no wheezes, rhonchi, rales or crackles.) Cardiovascular: Reports RRR and Pulses normal GI/: Reports Soft, Nontender, No masses and Bowel sounds normal Musculoskeletal: Reports Normal strength, ROM intact and Edema (There is +1 pretibial edema bilaterally) Skin: Reports Warm and Dry Neurological: Reports Sensation intact, Motor intact and Reflexes intact Psychiatric: Reports Affect appropriate and Mood appropriate Re-Evaluation Re-Evaluation Time of Re-Evaluation: 14:00 Status: Improved Vital Signs Stable: Yes Pain Level: Patient states that his symptoms have slightly improved after the aerosol t Physician Notification Case Discussed Physician Notified: Discussed with Shannon White hospitalist Time of Notification: 14:05 Comments: Discussion below laboratory data for chest x-ray EKG findings recommendations for observation. Critical Care Note Critical Care Note Total Critical Care Time (mins): 30 Course Course 12/25/23 12:25 12/25/23 12:25 Orders, Labs, Meds: Lab Review 12/25/23 12/25/23 12:23 12:25 WBC 9.46 RBC 6.25 H Hgb 18.0 Hct 59.6 H MCV 95.4 H MCH 28.8 MCHC 30.2 L RDW Coeff of Dayana 13.2 Plt Count 209 Immature Gran % (Auto) 0.8 Neut % (Auto) 59.9 Lymph % (Auto) 28.1 Meagher % (Auto) 8.7 Eos % (Auto) 2.3 Baso % (Auto) 0.2 Neut # (Auto) 5.7 Lymph # (Auto) 2.7 Meagher # (Auto) 0.8 Eos # (Auto) 0.2 Baso # (Auto) 0.0 Immature Gran # (Auto) 0.1 Puncture Site Rrad Base Excess 10.8 H O2 Saturation 87.7 L ABG pH 7.35 ABG pCO2 66.0 H ABG pO2 57.0 L* ABG HCO3 36.4 H ABG Total CO2 38.4 H Yasmany Test Pos Hemoglobin 0.9 Oxyhemoglobin 83.5 L Carboxyhemoglobin 9.0 H Total Hemoglobin 18.0 H O2 Delivery Device Cannula Oxygen Liter Flow 3.00 Sodium 137.2 Potassium 4.29 Chloride 99.1 Carbon Dioxide 29.8 Anion Gap 12.59 BUN 17.9 Creatinine 0.62 Estimated GFR (MDRD) 128.00 BUN/Creatinine Ratio 28.87 Glucose 149.3 H Calcium 9.21 Magnesium 1.86 Total Bilirubin 0.62 AST 21.9 ALT 21.4 Alkaline Phosphatase 109.7 Troponin I < 0.012 NT-Pro-B Natriuret Pep 191 H Total Protein 7.51 Albumin 4.20 Globulin 3.31 Albumin/Globulin Ratio 1.26 D-Dimer 380.33 Orders Category Date Time Status ABG DRAW REQUEST Stat CARDIO 12/25/23 12:17 Completed BIPAP Routine CARDIO 12/25/23 13:07 Ordered EKG-(ED ONLY) Stat CARDIO 12/25/23 12:17 Completed NEBULIZER TREATMENT Stat CARDIO 12/25/23 12:19 Completed NEBULIZER TREATMENT Stat CARDIO 12/25/23 13:14 Completed ED ENVIRONMENTAL PROFESSIONAL APPLIED .ONCE EMERGENCY 12/25/23 12:17 Active ABG COOX Stat LAB 12/25/23 12:23 Completed BLOOD CULTURE (ED ONLY) Stat LAB 12/25/23 12:51 Received CBC W/ AUTO DIFF Stat LAB 12/25/23 12:25 Completed CMP [COMPREHENSIVE METABOLIC PANEL] Stat LAB 12/25/23 12:25 Completed D-DIMER Stat LAB 12/25/23 12:25 Completed MAGNESIUM Stat LAB 12/25/23 12:25 Completed NT-PROBNP Stat LAB 12/25/23 12:25 Completed TROPONIN I Stat LAB 12/25/23 12:25 Completed Furosemide [Lasix] Meds 12/25/23 13:24 Discontinued 40 mg IVP ONCE STA Ipratropium/Albuterol Neb [Duoneb] Meds 12/25/23 13:14 Discontinued 3 ml NEB ONCE STA Levalbuterol HCl [Xopenex 1.25 mg] Meds 12/25/23 12:17 Discontinued 1.25 mg NEB ONCE STA Levofloxacin/D5w [Levaquin 750 mg/150 ml D5w] Meds 12/25/23 12:21 Discontinued 750 mg in 150 ml IV ONCE Methylprednisolone Sod Succ/Pf [Solu-Medrol 125 mg] Meds 12/25/23 13:04 Discontinued 125 mg IVP ONCE ONE CHEST, 1V AP ONLY Stat RADS 12/25/23 12:17 Completed Medications Discontinued Medications Generic Name Dose Route Start Last Admin Trade Name Freq PRN Reason Stop Dose Admin Albuterol/Ipratropium 3 ml 12/25/23 13:14 12/25/23 13:19 Ipratropium/Albuterol Vial.Neb NEB 12/25/23 13:15 3 ml ONCE STA Administration Furosemide 40 mg 12/25/23 13:24 12/25/23 13:36 Furosemide Inj 40 Mg/4 Ml Vial IVP 12/25/23 13:25 40 mg ONCE STA Administration Levofloxacin/Dextrose 750 mg in 150 mls @ 100 mls/hr 12/25/23 12:21 12/25/23 13:05 Levaquin 750 Mg/150 Ml D5w IV 12/25/23 13:50 100 mls/hr ONCE ONE Administration Levalbuterol HCl 1.25 mg 12/25/23 12:17 12/25/23 13:02 Levalbuterol Hcl 1.25 Mg/3 Ml Vial.Neb NEB 12/25/23 12:18 1.25 mg ONCE STA Administration Methylprednisolone Sodium Succinate 125 mg 12/25/23 13:04 12/25/23 13:09 Methylprednisolone Sod Succ/Pf 125 Mg/2 Ml Vial IVP 12/25/23 13:05 125 mg ONCE ONE Administration Vital Signs: Temp Pulse Resp BP Pulse Ox O2 Del Method O2 Flow Rate 12/25/23 13:51 90 L Venturi Mask 4 12/25/23 12:30 Nasal Cannula 3 12/25/23 12:01 98.4 F 59 L 22 H 140/84 86 L Discharge Plan Discharge Patient Disposition: PLACED OBSERVATION Discharge Problem: COPD with acute exacerbation Prescriptions: No Action (DME) True Metrix Glucose Test Strip Strip See Rx Instructions .ROUTE .MEDSUPPLY Qty: 100 4RF Rx Instructions: take three times daily and As directed pen needle, diabetic [Sure Comfort Pen Needle] 32 gauge x 5/32" needle See Rx Instructions .ROUTE .COMPLEX Qty: 250 12RF Dose Instruction: USE FOR Basaglar injections daily Rx Instructions: Use daily with [place], Basaglar and Novalog injections. lisinopril 10 mg tablet 10 mg PO QDAY Qty: 90 1RF rosuvastatin 40 mg tablet 40 mg PO QDAY Qty: 30 3RF Atrovent HFA 17 mcg/actuation Hfa Aerosol Inhaler 2 puff INHALATION TID Trelegy Ellipta 200-62.5-25 mcg blister with device 1 inh INHALATION DAILY Patient Comments: inhale ONE PUFF BY MOUTH DAILY pantoprazole 40 mg tablet,delayed release (DR/EC) 40 mg PO BID hydrocodone-acetaminophen 10-325 mg tablet 1 tab PO Q6H PRN (Reason: Pain) Patient Comments: TAKE ONE TABLET BY MOUTH EVERY 6 HOURS NEEDED FOR PAIN fluticasone propionate 50 mcg/actuation spray,suspension 2 spray INTRANASAL BID Patient Comments: SPRAY TWO SPRAYS into THE nostril(s) TWICE DAILY DIRECTED insulin glargine [Basaglar KwikPen U-100 Insulin] 100 unit/mL (3 mL) insulin pen 1 unit SUBCUT DIRECTED Patient Comments: take 90 units EVERY MORNING AND take 85 units EVERY EVENING (total 175 units DAILY) Rx Instructions: 90 UNITS IN AM 85 UNITS IN PM insulin aspart U-100 [Novolog FlexPen U-100 Insulin] 100 unit/mL (3 mL) insulin pen 15 unit SUBCUT TID Patient Comments: inject 15 units UNDER THE SKIN THREE TIMES DAILY WITH meals aspirin [Adult Aspirin Regimen] 81 mg tablet,delayed release (DR/EC) 81 mg PO QDAY Did you review [place] [employer] for ALL controlled substances?: Not Applicable ED Provider: REMI DOE Condition: Stable Physician Progress Note: Patient with a history of COPD and longstanding smoker, history of hypertension type 2 diabetes complains of a chronic persistent cough that is progressively worse productive chronic dyspnea which has been progressive for the past week. Denies fever, chills, chest pain, arthralgia. EKG interpretation by myself, is consistent with normal sinus rhythm with sinus arrhythmia rate of 90 with occasional PVCs. There is left axis deviation there is no ischemic changes noted. There is no prolongation of HI QT interval. Xopenex aerosol treatment 1.25 mg Followed by DuoNeb aerosol treatment. Laboratory data troponin less than 0.012 the CBC and the CMP are all within normal limits. The BNP is 191 COVID chest x-ray interpretation radiology consistent with heart mediastinum are normal prominent bibasilar markings are noted, mild pulmonary vascular congestion with suspected Patient given Lasix 40 mg IV Differential diagnosis: 1) acute exacerbation of COPD 2) dependent edema Discussed with hospitalist Shannon White at 1405 for observation []
[2023-12-25 12:38] LABS: BASOPHILS % (AUTO) 0.2 % (0.0-3.0); EOSINOPHILS # (AUTO) 0.2 K/ul (0.0-0.7); EOSINOPHILS % (AUTO) 2.3 % (0.0-7.0); HEMATOCRIT 59.6 % (42.0-52.0); IMMATURE GRANULOCYTE # (AUTO) 0.1 (0.0-1.0); IMMATURE GRANULOCYTE % (AUTO) 0.8 % (0.0-5.0); LYMPHOCYTES # (AUTO) 2.7 K/uL (0.60-3.4); LYMPHOCYTES % (AUTO) 28.1 (10.0-50.0); MEAN CORPUSCULAR HEMOGLOBIN 28.8 pg (27.0-31.0); MEAN CORPUSCULAR HGB CONC 30.2 (31.8-35.4); MEAN CORPUSCULAR VOLUME 95.4 fl (80.0-94.0); MONOCYTES # (AUTO) 0.8 K/uL (0.4-2.0); MONOCYTES % (AUTO) 8.7 (0-10); NEUTROPHILS # (AUTO) 5.7 K/ul (2.0-6.9); NEUTROPHILS % (AUTO) 59.9 % (42.2-75.2); PLATELET COUNT 209 10^3/uL (140-440); RDW COEFFICIENT OF VARIATION 13.2 % (11.6-14.8); RED BLOOD COUNT 6.25 10^6/ul (4.70-6.10); WHITE BLOOD COUNT 9.46 K/ul (4.2-10.2)
[2023-12-25 12:51] LABS: ALANINE AMINOTRANSFERASE 21.4 U/L (0-50); ALKALINE PHOSPHATASE 109.7 U/L (56-119); ASPARTATE AMINO TRANSFERASE 21.9 U/L (17-59); BILIRUBIN,TOTAL 0.62 mg/dL (0.2-1.3); BLOOD UREA NITROGEN 17.9 mg/dL (9-20); CALCIUM 9.21 mg/dL (8.4-10.2); CARBON DIOXIDE 29.8 mmol/L (22-30.0); CHLORIDE 99.1 mmol/L (98-107); CREATININE 0.62 mg/dL (0.60-1.10); GLUCOSE 149.3 mg/dL (74-106); MAGNESIUM 1.86 mg/dL (1.6-2.3); POTASSIUM 4.29 mmol/L (3.5-5.1); SODIUM 137.2 mmol/L (134.5-145); TOTAL PROTEIN 7.51 g/dL (6.3-8.2)
[2023-12-25 12:59] LABS: ABG O2 HGB 83.5 % (95-100); ABG PH 7.35 (7.35-7.45); BEecf 10.8 (-2.0-3.0); HCO3 36.4 (21-28); MetHb 0.9 (0-1.5); TCO2 38.4 (19-24); sO2 87.7 % (94-98)
[2023-12-25] MEDS: XOPENEX 1.25 MG NEB STA (13:02)
[2023-12-25 13:04] LABS: TROPONIN I < 0.012 ng/ml (0.0000-0.120)
[2023-12-25] MEDS: LEVAQUIN 750 MG/150 ML D5W 750 MG/150 ML BAG IV ONE (13:05)
[2023-12-25] MEDS: SOLU-MEDROL 125 MG IVP ONE (13:09)
[2023-12-25] MEDS: DUONEB NEB STA (13:19)
--- NOTE | 2023-12-25 13:19 | DI ---
EXAM: CHEST RADIOGRAPH TECHNIQUE: Single frontal chest radiograph. COMPARISON: 10/31/2022 HISTORY: The cough and dyspnea. FINDINGS: The heart and mediastinum are normal. The lungs and pleural spaces are stable. Prominent bibasilar m arkings are noted. No acute abnormality of the bones or soft tissues is identified. Cervical fixation hardware is identi fied. An old left clavicle fracture is noted. IMPRESSION: Mild pulmonary vascular congestion is suspected. Otherwise, stable exam.
[2023-12-25] MEDS: LASIX IVP STA (13:36)
[2023-12-25 14:36] LABS: SARS COV-2 RNA RAPID NAAT NEGATIVE (NEGATIVE)
[2023-12-25] MEDS ORDERED: ALBUTEROL 0.083% NEB NEB PRN (14:49)
[2023-12-25] MEDS ORDERED: SOLU-MEDROL 40 MG IVP SCH (15:00)
--- NOTE | 2023-12-25 15:29 | PCM ---
Date of Service Date Seen by Provider: 12/25/23 Time Seen by Provider: 15:10 Admit Day/Time Admission Date: 12/25/23 Admission Time: 14:05 Reason for Admission Chief Complaint: COPD Hospital Provider Hospital Provider: AUTUMN BOYKIN, [facility] – [place], [place] Primary Care Physician Primary Care Physician: SANDHYA GOMEZ APRN, FNP-C History of Present Illness History of Present Illness: 73 yo male presented to the ER with complaints of shortness of breath. States he has felt this way over the past 2 weeks and has progressively worsened. Has pmh of COPD and still smokes 1ppd. Has home oxygen that he wears prn. Does not have nebulizer treatments but does use inhalers that he reports do not help his shortness of breath. Denies any fever, chills, chest pain, palpitations. Does report some swelling to lower extremities and feels his abdomen is distended/tight. States he normally weighs around 240-250s and is currently 260 lbs. Denies any pmh of CHF that he is aware of. In ER, O2 sat was dropping into the 80s. He was placed on 2L with minimal improvement. RT reports he was on 4L and desat quickly when ambulating. ABG obtained and showed CO2 in 60s (which is chronic for him) and PO2 in 50s. ER provider requested BIPAP and was determined to not be appropriate at this time and patient unable to tolerate due to nasal fracture in the past. He was then placed on vapotherm and is maintaining O2 sat in 90s with FiO2 on 45%. Admitted to med/surg observation for acute hypoxic respiratory failure and new onset CHF. Case Discussed With Case Discussed With: Patient's case was discussed with the ER Physicians, Dr. Deutsch. [facility] Medical History Right hip pain M25.551 - Pain in right hip (ICD-10) Diverticulitis K57.92 - Diverticulitis of intestine, part unspecified, without perforation or abscess without bleeding (ICD-10) Biceps muscle tear S46.219A - Strain of muscle, fascia and tendon of other parts of biceps, unspecified arm, initial encounter (ICD-10) Umbilical hernia K42.9 - Umbilical hernia without obstruction or gangrene (ICD-10) Hiatal hernia K44.9 - Diaphragmatic hernia without obstruction or gangrene (ICD-10) Osteoarthritis M19.90 - Unspecified osteoarthritis, unspecified site (ICD-10) Hyperlipidemia E78.5 - Hyperlipidemia, unspecified (ICD-10) GERD (gastroesophageal reflux disease) K21.9 - Gastro-esophageal reflux disease without esophagitis (ICD-10) COPD (chronic obstructive pulmonary disease) J44.9 - Chronic obstructive pulmonary disease, unspecified (ICD-10) Chronic laryngitis J37.0 - Chronic laryngitis (ICD-10) Chronic neck pain M54.2 - Cervicalgia (ICD-10) G89.29 - Other chronic pain (ICD-10) Chronic back pain M54.9 - Dorsalgia, unspecified (ICD-10) G89.29 - Other chronic pain (ICD-10) Surgical History History of rotator cuff surgery x2 - 1970's & 1989's Z98.890 - Other specified postprocedural states (ICD-10) History of circumcision 10/24/2017 Z98.890 - Other specified postprocedural states (ICD-10) History of fusion of cervical spine ACDF C4-7 Dr. Gonzalez Z98.1 - Arthrodesis status (ICD-10) History of excision of lamina of cervical vertebra for decompression of spinal cord 12/11/2018 C4-5 Laminotomy and Foraminotomy Z98.890 - Other specified postprocedural states (ICD-10) History of colectomy 1999 Z90.49 - Acquired absence of other specified parts of digestive tract (ICD- 10) Family History Mother Breast cancer, left Breast cancer, right Cancer Lung cancer FATHER Diabetes Cardiac disease Hyperlipidemia Cancer SISTER Breast cancer, left Breast cancer, right Cancer BROTHER Lung cancer SISTER Breast cancer Social History Smoking and tobacco status: Current every day smoker Tobacco type: cigarettes Smoking packs per day: 0.5 Smoking cigarettes per day: 62 Tobacco: How many years used: 60 Passive smoking exposure: No Quit status: considering quitting Second hand smoke exposure: No Smoking risk assessment performed: No Alcohol intake: current Alcohol intake frequency: a few times a week Alcohol type: wine Counseling given: No Counseling provided: none Substance use type: does not use Counseling given: No Counseling provided: none Kaitlin/yarsanism: BUDDHISM Special kaitlin needs: No Agree to transfusion: Yes Adopted: No Caregiver/support person: No Foster care: No Household members: family Housing: house Marital status: D Lives independently: Yes Daycare: no daycare Number of children: 7 Number of grandchildren: 13 Highest education level completed: 7th grade Financial difficulty paying for basics: not very hard service: No assisted: No Current occupational status: disabled Current occupational exposures/hazards: No Pets and animals: No Leisure activites: music and fishing History of recent travel: Yes Sexually active: Yes Do you think of yourself as: straight/heterosexual Current gender identity: male Seatbelt use: always Helmet use: No Drives intoxicated or rides with intoxicated delivery driver: No Current diet type/program: regular Well-balanced diet: rarely Caffeine: Yes Eating out: rarely or never Reads food labels: seldom or never During the past year weight has: increased > 10 lbs Water heater temperature set < 120 degrees: Yes Working smoke detector in home: Yes Fire extinguisher in home: Yes Carbon monoxide detector in home: Yes Firearms in home: Yes Firearms unloaded and locked: Yes What type of physical activity do you participate in?: none Physical activity functional status: independent ambulation How many days of moderate to strenuous exercise, like a brisk walk, did you do in the last 7 days: 0 Allergies Allergies Allergy/AdvReac Type Severity Reaction Status Date / Time clindamycin Allergy Intermediate See Verified 10/31/22 03:23 comment bubble codeine Allergy Mild Itching Verified 10/31/22 03:23 meloxicam Allergy Nausea Verified 10/31/22 03:23 Penicillins AdvReac nausea/vomi Verified 10/31/22 03:23 ting Current Medications Home Medications aspirin 81 mg tablet,delayed release (Adult Aspirin Regimen) 81 mg PO QDAY 01/25/21 [History Confirmed 12/25/23 Last Taken Unknown] blood sugar diagnostic (True Metrix Glucose Test Strip) #100 ea 09/15/21 [Rx Confirmed 12/25/23 Last Taken Unknown] pen needle, diabetic 32 gauge x 32" (Sure Comfort Pen Needle) See Rx Instructions .Route .COMPLEX #250 ea 02/28/22 [Rx Confirmed 12/25/23 Last Taken Unknown] lisinopril 10 mg tablet 10 mg PO QDAY #90 tabs 03/06/22 [Rx Confirmed 12/25/23 Last Taken Unknown] rosuvastatin 40 mg tablet 40 mg PO QDAY #30 tabs 07/09/22 [Rx Confirmed 12/25/23 Last Taken Unknown] fluticasone fur. 200 mcg-umeclid 62.5 mcg-vilant 25 mcg inhalat.powder (Trelegy Ellipta) 1 inh inhalation DAILY 10/31/22 [History Confirmed 12/25/23 Last Taken Unknown] fluticasone propionate 50 mcg/actuation nasal spray,suspension 2 spray intranasal BID 10/31/22 [History Confirmed 12/25/23 Last Taken Unknown] hydrocodone 10 mg-acetaminophen 325 mg tablet 1 tab PO Q6H PRN Pain 10/31/22 [History Confirmed 12/25/23 Last Taken Unknown] insulin glargine 100 unit/mL (3 mL) subcutaneous pen (Basaglar KwikPen U-100 Insulin) 1 unit subcut DIRECTED 10/31/22 [History Confirmed 12/25/23 Last Taken Unknown] ipratropium bromide 17 mcg/actuation HFA aerosol inhaler (Atrovent HFA) 2 puff inhalation TID 10/31/22 [History Confirmed 12/25/23 Last Taken Unknown] pantoprazole 40 mg tablet,delayed release 40 mg PO BID 10/31/22 [History Confirmed 12/25/23 Last Taken Unknown] insulin aspart U-100 100 unit/mL (3 mL) subcutaneous pen (Novolog FlexPen U-100 Insulin aspart) 15 unit subcut TID 12/25/23 [History Confirmed 12/25/23 Last Taken Unknown] Home Acetaminophen (Acetaminophen 325 Mg Tablet) 650 mg PO Q4H PRN PRN Reason: Mild Pain Albuterol Sulfate (Albuterol Sulfate 0.083% Vial.Neb) 2.5 mg NEB RTQ4H PRN PRN Reason: Wheezing Albuterol/Ipratropium (Ipratropium/Albuterol Vial.Neb) 3 ml NEB RTQ4H MARILUZ Enoxaparin Sodium (Enoxaparin Sodium 40 Mg/0.4 Ml Syr) 40 mg SUBCUT DAILY MARILUZ Furosemide (Furosemide Inj 40 Mg/4 Ml Vial) 40 mg IVP Q12HR MARILUZ Levofloxacin/Dextrose (Levaquin 750 Mg/150 Ml D5w) 750 mg in 150 mls @ 100 mls/hr IV DAILY MARILUZ Stop: 12/29/23 08:59 Methylprednisolone Sodium Succinate (Methylprednisolone Sod Succ/Pf 40 Mg/Ml Vial) 40 mg IVP Q8HR MARILUZ Discontinued Medications Albuterol/Ipratropium (Ipratropium/Albuterol Vial.Neb) 3 ml NEB ONCE STA Stop: 12/25/23 13:15 Last Admin: 12/25/23 13:19 Dose: 3 ml Furosemide (Furosemide Inj 40 Mg/4 Ml Vial) 40 mg IVP ONCE STA Stop: 12/25/23 13:25 Last Admin: 12/25/23 13:36 Dose: 40 mg Levofloxacin/Dextrose (Levaquin 750 Mg/150 Ml D5w) 750 mg in 150 mls @ 100 mls/hr IV ONCE ONE Stop: 12/25/23 13:50 Last Admin: 12/25/23 13:05 Dose: 100 mls/hr Levalbuterol HCl (Levalbuterol Hcl 1.25 Mg/3 Ml Vial.Neb) 1.25 mg NEB ONCE STA Stop: 12/25/23 12:18 Last Admin: 12/25/23 13:02 Dose: 1.25 mg Methylprednisolone Sodium Succinate (Methylprednisolone Sod Succ/Pf 125 Mg/2 Ml Vial) 125 mg IVP ONCE ONE Stop: 12/25/23 13:05 Last Admin: 12/25/23 13:09 Dose: 125 mg Opioid Naive vs. Tolerant Does Patient Take Opioids?: No Is Patient Opioid Naive?: Yes What is Opioid Naive?: *Opioid Naive implies the patient is not already taking opioids or not chronically receiving opioids on a daily basis. *PRN dosing is not "usually" associated with tolerance. *Patients are at higher risk of over-sedation and aspiration. Is Patient Opioid Tolerant?: No What is Opioid Tolerant?: *Opioid Tolerance implies less than the expected response to an opioid. *Acquired tolerance is defined by the patient taking 60mg of oral morphine daily (or equianalgesic dose of another opioid) for 1 week or more. *Often associated with chronic pain. *May take more than usual dose to achieve desired pain control. Review of Systems Constitutional: Reports No symptoms Head: Reports Normocephalic Eyes: Reports No symptoms Ears: Reports No symptoms Nose: Reports No symptoms Mouth: Reports No symptoms Throat: Reports No symptoms Cardiovascular: Reports Edema (legs and abdomen) Respiratory: Reports Shortness of air Gastrointestinal: Reports No symptoms Genitourinary: Reports No Symptoms Musculoskeletal: Reports No symptoms Endocrine: Reports No symptoms Hematology: Reports No symptoms Immunology: Reports No symptoms Neurological: Reports No symptoms Psychiatric: Reports No symptoms Physical examination Most Recent Vital Signs: Most Recent Vital Signs Temperature 98.4 F 12/25/23 12:01 Temperature Source Infrared 12/25/23 12:01 Pulse Rate 59 L 12/25/23 12:01 Respiratory Rate 22 H 12/25/23 12:01 Blood Pressure 140/84 12/25/23 12:01 O2 Sat by Pulse Oximetry 91 L 12/25/23 15:25 Oxygen Delivery Method Venturi Mask 12/25/23 13:51 Oxygen Flow Rate 4 12/25/23 13:51 Fraction of Inspired Oxygen (FIO2) 45 12/25/23 15:25 Height 5 ft 11 in 12/25/23 12:01 Weight 260 lb 12/25/23 12:01 Telemetry Heart Rate 93 11/02/22 13:00 Appearance: Positive No Apparent Distress, Alert and Oriented x3 and Obese Skin: Positive Warm and Good Turgor HEENT: Positive Normocephalic and PERRLA Neck: Positive Supple and Midline Trachea Chest/Lungs: Positive Symmetrical With Equal Breath Sounds and Clear to Auscultation Bilaterally (severely diminished throughout lung barone) Heart: Positive RRR, Pulses Normal, No S3 Auscultated and No S4 Auscultated GI/: Positive Soft, Nontender, Bowel Sounds Normal and Other (rotund ) Musculoskeletal: Positive Normal Gait and Station Extremities: Positive Edema (+2 pitting edema BLE), Intact Peripheral Pulses, Stable Joints Without Laxity and Good ROM in All Joints Neurological: Positive Sensation Intact, Motor intact, Alert, Oriented and Muscle Strength 5/5 in Upper and Lower Extremities Bilaterally Labs This Visit Labs This Visit: Labs This Visit 12/25/23 12/25/23 12/25/23 12:23 12:25 14:09 WBC 9.46 RBC 6.25 H Hgb 18.0 Hct 59.6 H MCV 95.4 H MCH 28.8 MCHC 30.2 L RDW Coeff of Dayana 13.2 Plt Count 209 Immature Gran % (Auto) 0.8 Neut % (Auto) 59.9 Lymph % (Auto) 28.1 Leslie % (Auto) 8.7 Eos % (Auto) 2.3 Baso % (Auto) 0.2 Neut # (Auto) 5.7 Lymph # (Auto) 2.7 Leslie # (Auto) 0.8 Eos # (Auto) 0.2 Baso # (Auto) 0.0 Immature Gran # (Auto) 0.1 Puncture Site Rrad Base Excess 10.8 H O2 Saturation 87.7 L ABG pH 7.35 ABG pCO2 66.0 H ABG pO2 57.0 L* ABG HCO3 36.4 H ABG Total CO2 38.4 H Yasmany Test Pos Hemoglobin 0.9 Oxyhemoglobin 83.5 L Carboxyhemoglobin 9.0 H Total Hemoglobin 18.0 H O2 Delivery Device Cannula Oxygen Liter Flow 3.00 Sodium 137.2 Potassium 4.29 Chloride 99.1 Carbon Dioxide 29.8 Anion Gap 12.59 BUN 17.9 Creatinine 0.62 Estimated GFR (MDRD) 128.00 BUN/Creatinine Ratio 28.87 Glucose 149.3 H Calcium 9.21 Magnesium 1.86 Total Bilirubin 0.62 AST 21.9 ALT 21.4 Alkaline Phosphatase 109.7 Troponin I < 0.012 NT-Pro-B Natriuret Pep 191 H Total Protein 7.51 Albumin 4.20 Globulin 3.31 Albumin/Globulin Ratio 1.26 D-Dimer 380.33 SARS CoV-2 RNA Rapid KIANNA Negative Imaging Imaging: EXAM: CHEST RADIOGRAPH FINDINGS: The heart and mediastinum are normal. The lungs and pleural spaces are stable. Prominent bibasilar markings are noted. No acute abnormality of the bones or soft tissues is identified. Cervical fixation hardware is identified. An old left clavicle fracture is noted. IMPRESSION: Mild pulmonary vascular congestion is suspected. Otherwise, stable exam. Review Statement Review Statement: I have independently reviewed and interpreted the labs/EKGs/imaging that were ordered by the ER provider. I have reviewed all outside records that are available currently in our EMR including imaging/notes/labs from previous visits. Plan Plan: 1. Acute Hypoxic Respiratory Failure in setting of COPD exacerbation and new onset CHF - wean vapotherm as tolerated, steroids, nebs, levaquin Q24H, sputum culture ordered 2. COPD Exacerbation - plan as above, continue home daily inhalers 3. New onset CHF - edema, weight gain, sob noted. vascular congestion on chest x-ray. Checking echo tomorrow, fluid restriction, I&O, daily weight, lasix 40 mg Q12H 4. DM2 - chronic, accuchecks qid with home insulin regimen, will add ssi if needed, ADA diet 5. Hypertension - chronic, continue home medications 6. Hyperlipidemia - chronic, continue home medications DVT Prophylaxis: Lovenox Time Spent: Greater than 80 minutes spent with patient, 50% of the time spent with this patient was devoted to counseling and coordination of care. Advanced Care Plannin minutes spent discussing advance care planning. Smoking Cessation: 3-10 minutes spent discussing smoking cessation. Disposition: Admit to: Med/Surg Observation DNR Discussed Plan of Care with Dr. Harrison Crockett. Medications Medication Orders: Medications Ordered Category Date Time Status Acetaminophen [Tylenol] Meds 12/25/23 14:49 Active 650 mg PO Q4H PRN Albuterol Sulfate 0.083% Neb [Albuterol 0.083% Neb] Meds 12/25/23 14:49 Active 2.5 mg NEB RTQ4H PRN Enoxaparin Sodium [Lovenox] Meds 12/25/23 15:00 Active 40 mg SUBCUT DAILY Furosemide [Lasix] Meds 12/25/23 21:00 Active 40 mg IVP Q12HR Ipratropium/Albuterol Neb [Duoneb] Meds 12/25/23 18:00 Active 3 ml NEB RTQ4H Levofloxacin/D5w [Levaquin 750 mg/150 ml D5w] Meds 12/26/23 09:00 Active 750 mg in 150 ml IV DAILY Methylprednisolone Sod Succ/Pf [Solu-Medrol 40 mg] Meds 12/25/23 21:00 Active 40 mg IVP Q8HR
[2023-12-25 15:31] VITALS: BMI 37.0
[2023-12-25] MEDS: LOVENOX SUBCUT SCH (15:53)
[2023-12-25] MEDS: DUONEB NEB SCH (17:01)
[2023-12-25] MEDS: TYLENOL PO PRN (17:31)
[2023-12-25] MEDS: NORCO 10-325 PO PRN (20:01)
[2023-12-25] MEDS: SOLU-MEDROL 40 MG IVP SCH (20:02)
[2023-12-25] MEDS: PROTONIX PO SCH (20:03)
[2023-12-25] MEDS: LASIX IVP SCH (20:03)
[2023-12-25] MEDS: HUMULIN R (10ML) SUBCUT PRN (20:23)
[2023-12-25] MEDS: LANTUS SUBCUT SCH (20:23)
[2023-12-25] MEDS: FLONASE NAS SCH (20:33)
[2023-12-25] MEDS ORDERED: HUMALOG SUBCUT SCH (21:00)
[2023-12-26 05:23] LABS: BASOPHILS % (AUTO) 0.1 % (0.0-3.0); HEMATOCRIT 55.5 % (42.0-52.0); HEMOGLOBIN 17.3 g/dl (14.0-18.0); IMMATURE GRANULOCYTE # (AUTO) 0.1 (0.0-1.0); IMMATURE GRANULOCYTE % (AUTO) 0.8 % (0.0-5.0); LYMPHOCYTES % (AUTO) 9.9 (10.0-50.0); MEAN CORPUSCULAR HEMOGLOBIN 28.9 pg (27.0-31.0); MEAN CORPUSCULAR HGB CONC 31.2 (31.8-35.4); MEAN CORPUSCULAR VOLUME 92.7 fl (80.0-94.0); MONOCYTES # (AUTO) 0.3 K/uL (0.4-2.0); MONOCYTES % (AUTO) 3.2 (0-10); NEUTROPHILS # (AUTO) 8.8 K/ul (2.0-6.9); PLATELET COUNT 190 10^3/uL (140-440); RDW COEFFICIENT OF VARIATION 13.1 % (11.6-14.8); RED BLOOD COUNT 5.99 10^6/ul (4.70-6.10); WHITE BLOOD COUNT 10.18 K/ul (4.2-10.2)
[2023-12-26 05:37] LABS: ALANINE AMINOTRANSFERASE 23.3 U/L (0-50); ALBUMIN 4.07 g/dL (3.5-5.0); ALKALINE PHOSPHATASE 104.5 U/L (56-119); ASPARTATE AMINO TRANSFERASE 25.8 U/L (17-59); BILIRUBIN,TOTAL 0.59 mg/dL (0.2-1.3); BLOOD UREA NITROGEN 25.9 mg/dL (9-20); CALCIUM 9.22 mg/dL (8.4-10.2); CARBON DIOXIDE 32.4 mmol/L (22-30.0); CHLORIDE 93.9 mmol/L (98-107); CREATININE 0.77 mg/dL (0.60-1.10); GLUCOSE 334.5 mg/dL (74-106); POTASSIUM 4.64 mmol/L (3.5-5.1); SODIUM 135.2 mmol/L (134.5-145); TOTAL PROTEIN 7.29 g/dL (6.3-8.2)
[2023-12-26] MEDS: SPIRIVA IH SCH (08:18)
[2023-12-26] MEDS: SYMBICORT 160-4.5 MCG INHALER IH SCH (08:19)
[2023-12-26] MEDS: LANTUS SUBCUT SCH (08:19)
[2023-12-26] MEDS: LEVAQUIN 750 MG/150 ML D5W 750 MG/150 ML BAG IV SCH (08:19)
[2023-12-26] MEDS: ZESTRIL PO SCH (08:20)
[2023-12-26] MEDS: ASPIRIN EC PO SCH (08:20)
[2023-12-26] MEDS: CRESTOR PO SCH (08:20)
[2023-12-26 08:43] LABS: ABG O2 HGB 89.7 % (95-100); ABG PH 7.36 (7.35-7.45); BEecf 5.1 (-2.0-3.0); HCO3 30.5 (21-28); TCO2 32.2 (19-24); sO2 91.5 % (94-98); tHb 17.9 g/dl (11.7-17.4)
[2023-12-26] MEDS ORDERED: NON-FORMULARY MEDICATION (Fluticasone-Umeclidin-Vilanter [Trelegy Ellipta] 200-62.5-25 mcg IH SCH (09:00)
--- NOTE | 2023-12-26 09:14 | PCM.PROG ---
Date/Time Seen Date Seen by Provider: 12/26/23 Time Seen by Provider: 08:30 Provider [facility]YKIN[facility] Chief Complaint Chief Complaint: COPD Subjective Subjective: Feels he is breathing better today. Also reports edema is better. Continuing to require vapotherm to maintain O2 sat in 90s. Tachycardic at times. Objective Appearance: Positive No Apparent Distress, Alert and Oriented x3 and Obese Chest/Lungs: Positive Symmetrical With Equal Breath Sounds and Wheezes (inspiratory and expiratory ) Heart: Positive RRR and Pulses Normal GI/: Positive Soft, Nontender, Bowel Sounds Normal and No Distention Musculoskeletal: Positive Not Examined Neurological: Positive Sensation Intact, Motor intact, Alert and Oriented Additional Findings: +1 pitting edema BLE Vital Signs Vital Signs: Vital Signs: Last 24 Hours 12/25/23 12:01 12/25/23 12:30 12/25/23 13:51 Temperature 98.4 F Temperature Source Infrared Pulse Rate 59 L Pulse Rate [Apical] Respiratory Rate 22 H Blood Pressure 140/84 Blood Pressure Mean Blood Pressure Right Arm Blood Pressure Location Blood Pressure Position O2 Sat by Pulse Oximetry 86 L 90 L Oxygen Delivery Method Nasal Cannula Venturi Mask Oxygen Flow Rate 3 4 Fraction of Inspired Oxygen (FIO2) 30 Height 5 ft 11 in Weight 260 lb Telemetry Type Telemetry Monitoring Telemetry Heart Rate Telemetry SPO2 EKG [place] Interval EKG QRS Interval Telemetry Strip [place] 12/25/23 14:00 12/25/23 14:51 12/25/23 14:52 Temperature Temperature Source Pulse Rate Pulse Rate [Apical] Respiratory Rate Blood Pressure Blood Pressure Mean Blood Pressure Right Arm Blood Pressure Location Blood Pressure Position O2 Sat by Pulse Oximetry 89 L 89 L 92 L Oxygen Delivery Method Oxygen Flow Rate Fraction of Inspired Oxygen (FIO2) 30 30 45 Height Weight Telemetry Type Telemetry Monitoring Telemetry Heart Rate Telemetry SPO2 EKG [place] Interval EKG QRS Interval Telemetry Strip [place] 12/25/23 15:01 12/25/23 15:01 12/25/23 15:25 Temperature 97.9 F Temperature Source Temporal Artery Scan Pulse Rate 86 Pulse Rate [Apical] 96 Respiratory Rate 20 16 Blood Pressure Blood Pressure Mean Blood Pressure Right Arm 103/76 Blood Pressure Location Blood Pressure Position Sitting O2 Sat by Pulse Oximetry 91 L 91 L Oxygen Delivery Method Vapo Therm Vapo Therm Oxygen Flow Rate 40 Fraction of Inspired Oxygen (FIO2) 45 Height 5 ft 11 in Weight 266 lb Telemetry Type Telemetry Monitoring Telemetry Heart Rate Telemetry SPO2 EKG [place] Interval EKG QRS Interval Telemetry Strip [place] 12/25/23 16:00 12/25/23 16:40 12/25/23 17:00 Temperature Temperature Source Pulse Rate Pulse Rate [Apical] Respiratory Rate Blood Pressure Blood Pressure Mean Blood Pressure Right Arm Blood Pressure Location Blood Pressure Position O2 Sat by Pulse Oximetry Oxygen Delivery Method Vapo Therm Vapo Therm Oxygen Flow Rate Fraction of Inspired Oxygen (FIO2) Height Weight Telemetry Type Remote Telemetry Telemetry Monitoring Started Telemetry Heart Rate 92 Telemetry SPO2 89 L EKG [place] Interval 0.20 EKG QRS Interval 0.08 Telemetry Strip Reading NSR w/ PVC 12/25/23 17:00 12/25/23 17:53 12/25/23 18:00 Temperature 97.5 F L Temperature Source Temporal Artery Scan Pulse Rate 97 Pulse Rate [Apical] Respiratory Rate 19 Blood Pressure 149/83 H Blood Pressure Mean 105 Blood Pressure Right Arm Blood Pressure Location Blood Pressure Position Sitting O2 Sat by Pulse Oximetry 89 L 91 L Oxygen Delivery Method Vapo Therm Vapo Therm Oxygen Flow Rate 40 Fraction of Inspired Oxygen (FIO2) 45 50 Height Weight Telemetry Type Telemetry Monitoring Telemetry Heart Rate Telemetry SPO2 EKG [place] Interval EKG QRS Interval Telemetry Strip [place] 12/25/23 18:00 12/25/23 19:00 12/25/23 19:00 Temperature Temperature Source Pulse Rate Pulse Rate [Apical] Respiratory Rate Blood Pressure Blood Pressure Mean Blood Pressure Right Arm Blood Pressure Location Blood Pressure Position O2 Sat by Pulse Oximetry 91 L Oxygen Delivery Method Vapo Therm Oxygen Flow Rate Fraction of Inspired Oxygen (FIO2) 50 Height Weight Telemetry Type Remote Telemetry Telemetry Monitoring Continues Telemetry Heart Rate 106 H Telemetry SPO2 88 L EKG [place] Interval 0.19 EKG QRS Interval 0.[address] with PVC 12/25/23 19:44 12/25/23 20:00 12/25/23 21:00 Temperature Temperature Source Pulse Rate Pulse Rate [Apical] Respiratory Rate 18 Blood Pressure Blood Pressure Mean Blood Pressure Right Arm Blood Pressure Location Blood Pressure Position O2 Sat by Pulse Oximetry Oxygen Delivery Method Vapo Therm Vapo Therm Vapo Therm Oxygen Flow Rate 40 Fraction of Inspired Oxygen (FIO2) Height Weight Telemetry Type Telemetry Monitoring Telemetry Heart Rate Telemetry SPO2 EKG [place] Interval EKG QRS Interval Telemetry Strip [place] 12/25/23 21:11 12/25/23 22:00 12/25/23 22:10 Temperature 98.1 F Temperature Source Temporal Artery Scan Pulse Rate 100 Pulse Rate [Apical] Respiratory Rate 18 Blood Pressure 128/68 Blood Pressure Mean 88 Blood Pressure Right Arm Blood Pressure Location Right Arm Blood Pressure Position Supine O2 Sat by Pulse Oximetry 91 L 91 L Oxygen Delivery Method Vapo Therm Vapo Therm Oxygen Flow Rate 40 Fraction of Inspired Oxygen (FIO2) 50 50 Height Weight Telemetry Type Telemetry Monitoring Telemetry Heart Rate Telemetry SPO2 EKG [place] Interval EKG QRS Interval Telemetry Strip [place] 12/25/23 23:00 12/26/23 00:00 12/26/23 01:00 Temperature Temperature Source Pulse Rate Pulse Rate [Apical] Respiratory Rate Blood Pressure Blood Pressure Mean Blood Pressure Right Arm Blood Pressure Location Blood Pressure Position O2 Sat by Pulse Oximetry Oxygen Delivery Method Vapo Therm Vapo Therm Vapo Therm Oxygen Flow Rate Fraction of Inspired Oxygen (FIO2) Height Weight Telemetry Type Telemetry Monitoring Telemetry Heart Rate Telemetry SPO2 EKG [place] Interval EKG QRS Interval Telemetry Strip [place] 12/26/23 01:00 12/26/23 01:47 12/26/23 02:00 Temperature Temperature Source Pulse Rate Pulse Rate [Apical] Respiratory Rate Blood Pressure Blood Pressure Mean Blood Pressure Right Arm Blood Pressure Location Blood Pressure Position O2 Sat by Pulse Oximetry 91 L Oxygen Delivery Method Vapo Therm Oxygen Flow Rate Fraction of Inspired Oxygen (FIO2) 50 Height Weight Telemetry Type Remote Telemetry Telemetry Monitoring Continues Telemetry Heart Rate 92 Telemetry SPO2 89 L EKG [place] Interval 0.24 H EKG QRS Interval 0.07 Telemetry Strip Reading SR WITH 1ST DEGREE AVB & PVC'S 12/26/23 02:00 12/26/23 03:00 12/26/23 04:00 Temperature 97.3 F L Temperature Source Temporal Artery Scan Pulse Rate 100 Pulse Rate [Apical] Respiratory Rate 20 Blood Pressure 124/71 Blood Pressure Mean 88 Blood Pressure Right Arm Blood Pressure Location Right Arm Blood Pressure Position Sitting O2 Sat by Pulse Oximetry 91 L Oxygen Delivery Method Vapo Therm Vapo Therm Vapo Therm Oxygen Flow Rate 40 Fraction of Inspired Oxygen (FIO2) 50 Height Weight Telemetry Type Telemetry Monitoring Telemetry Heart Rate Telemetry SPO2 EKG [place] Interval EKG QRS Interval Telemetry Strip [place] 12/26/23 05:00 12/26/23 05:07 12/26/23 05:16 Temperature 97.2 F L Temperature Source Temporal Artery Scan Pulse Rate 95 Pulse Rate [Apical] Respiratory Rate 18 Blood Pressure 112/73 Blood Pressure Mean 86 Blood Pressure Right Arm Blood Pressure Location Right Arm Blood Pressure Position Sitting O2 Sat by Pulse Oximetry 90 L Oxygen Delivery Method Vapo Therm Vapo Therm Oxygen Flow Rate 40 Fraction of Inspired Oxygen (FIO2) 50 Height Weight 244 lb 6 oz Telemetry Type Telemetry Monitoring Telemetry Heart Rate Telemetry SPO2 EKG [place] Interval EKG QRS Interval Telemetry Strip [place] 12/26/23 05:20 12/26/23 05:45 12/26/23 07:00 Temperature Temperature Source Pulse Rate Pulse Rate [Apical] Respiratory Rate Blood Pressure Blood Pressure Mean Blood Pressure Right Arm Blood Pressure Location Blood Pressure Position O2 Sat by Pulse Oximetry 91 L Oxygen Delivery Method Nasal Cannula Nasal Cannula Oxygen Flow Rate Fraction of Inspired Oxygen (FIO2) 50 Height Weight Telemetry Type Telemetry Monitoring Telemetry Heart Rate Telemetry SPO2 EKG [place] Interval EKG QRS Interval Telemetry Strip [place] 12/26/23 07:00 12/26/23 07:49 12/26/23 07:51 Temperature Temperature Source Pulse Rate Pulse Rate [Apical] Respiratory Rate Blood Pressure Blood Pressure Mean Blood Pressure Right Arm Blood Pressure Location Blood Pressure Position O2 Sat by Pulse Oximetry Oxygen Delivery Method Nasal Cannula Vapo Therm Oxygen Flow Rate 40 Fraction of Inspired Oxygen (FIO2) Height Weight Telemetry Type Remote Telemetry Telemetry Monitoring Continues Telemetry Heart Rate 96 Telemetry SPO2 EKG [place] Interval 0.18 EKG QRS Interval 0.08 Telemetry Strip Reading SA w/ PVCs 12/26/23 09:11 Temperature Temperature Source Pulse Rate Pulse Rate [Apical] Respiratory Rate Blood Pressure Blood Pressure Mean Blood Pressure Right Arm Blood Pressure Location Blood Pressure Position O2 Sat by Pulse Oximetry 91 L Oxygen Delivery Method Oxygen Flow Rate Fraction of Inspired Oxygen (FIO2) 50 Height Weight Telemetry Type Telemetry Monitoring Telemetry Heart Rate Telemetry SPO2 EKG [place] Interval EKG QRS Interval Telemetry Strip [place] Lab Results Lab Results: Lab Results: Last 24 Hours 12/26/23 12/26/23 12/25/23 08:25 05:07 14:09 WBC 10.18 RBC 5.99 Hgb 17.3 Hct 55.5 H MCV 92.7 MCH 28.9 MCHC 31.2 L RDW Coeff of [place] 13.1 Plt Count 190 Immature Gran % (Auto) 0.8 Neut % (Auto) 86.0 H Lymph % (Auto) 9.9 L [place] % (Auto) 3.2 Eos % (Auto) 0.0 Baso % (Auto) 0.1 Neut # (Auto) 8.8 H Lymph # (Auto) 1.0 Wake # (Auto) 0.3 L Eos # (Auto) 0.0 Baso # (Auto) 0.0 Immature Gran # (Auto) 0.1 Puncture Site Rrad Base Excess 5.1 H O2 Saturation 91.5 L ABG pH 7.36 ABG pCO2 54.0 H ABG pO2 65.0 L ABG HCO3 30.5 H ABG Total CO2 32.2 H Yasmany Test Pos Hemoglobin 1.0 Oxyhemoglobin 89.7 L Carboxyhemoglobin 3.0 H Total Hemoglobin 17.9 H O2 Delivery Device Vapotherm Oxygen Liter Flow FiO2 % 50.0 Sodium 135.2 Potassium 4.64 Chloride 93.9 L Carbon Dioxide 32.4 H Anion Gap 13.54 BUN 25.9 H Creatinine 0.77 Estimated GFR (MDRD) 100.00 BUN/Creatinine Ratio 33.63 Glucose 334.5 H D Calcium 9.22 Magnesium Total Bilirubin 0.59 AST 25.8 ALT 23.3 Alkaline Phosphatase 104.5 Troponin I NT-Pro-B Natriuret Pep Total Protein 7.29 Albumin 4.07 Globulin 3.22 Albumin/Globulin Ratio 1.26 D-Dimer SARS CoV-2 RNA Rapid KIANNA Negative 12/25/23 12/25/23 12:25 12:23 WBC 9.46 RBC 6.25 H Hgb 18.0 Hct 59.6 H MCV 95.4 H MCH 28.8 MCHC 30.2 L RDW Coeff of [place] 13.2 Plt Count 209 Immature Gran % (Auto) 0.8 Neut % (Auto) 59.9 Lymph % (Auto) 28.1 [place] % (Auto) 8.7 Eos % (Auto) 2.3 Baso % (Auto) 0.2 Neut # (Auto) 5.7 Lymph # (Auto) 2.7 Wake # (Auto) 0.8 Eos # (Auto) 0.2 Baso # (Auto) 0.0 Immature Gran # (Auto) 0.1 Puncture Site Rrad Base Excess 10.8 H O2 Saturation 87.7 L ABG pH 7.35 ABG pCO2 66.0 H ABG pO2 57.0 L* ABG HCO3 36.4 H ABG Total CO2 38.4 H Yasmany Test Pos Hemoglobin 0.9 Oxyhemoglobin 83.5 L Carboxyhemoglobin 9.0 H Total Hemoglobin 18.0 H O2 Delivery Device Cannula Oxygen Liter Flow 3.00 FiO2 % Sodium 137.2 Potassium 4.29 Chloride 99.1 Carbon Dioxide 29.8 Anion Gap 12.59 BUN 17.9 Creatinine 0.62 Estimated GFR (MDRD) 128.00 BUN/Creatinine Ratio 28.87 Glucose 149.3 H Calcium 9.21 Magnesium 1.86 Total Bilirubin 0.62 AST 21.9 ALT 21.4 Alkaline Phosphatase 109.7 Troponin I < 0.012 NT-Pro-B Natriuret Pep 191 H Total Protein 7.51 Albumin 4.20 Globulin 3.31 Albumin/Globulin Ratio 1.26 D-Dimer 380.33 SARS CoV-2 RNA Rapid KIANNA Additional Comments Additional Comments: I have independently reviewed and interpreted the labs/EKGs/imaging ordered during this hospital stay. I have reviewed outside records that are available in our EMR that pertain to medical stay including imaging/notes/labs from previous visits. Active Medications Active Medications: Medications Generic Name Dose Route Start Last Admin Trade Name Freq PRN Reason Stop Dose Admin Acetaminophen 650 mg 12/25/23 14:49 12/25/23 17:31 Acetaminophen 325 Mg Tablet PO 650 mg Q4H PRN Administration Mild Pain Hydrocodone Bitart/Acetaminophen 1 tab 12/25/23 19:39 12/26/23 05:25 Hydrocodone Bit/Acetaminophen 10/325 Mg Tablet PO 1 tab Q6H PRN Administration Pain Albuterol Sulfate 2.5 mg 12/25/23 14:49 Albuterol Sulfate 0.083% Vial.Ginger NEB RTQ4H PRN Wheezing Albuterol/Ipratropium 3 ml 12/25/23 18:00 12/26/23 09:06 Ipratropium/Albuterol Vial.Ginger SHAH 3 ml RTQ4H MARILUZ Administration Aspirin 81 mg 12/26/23 09:00 12/26/23 08:20 Aspirin 81 Mg Tablet. PO 81 mg DAILY MARILUZ Administration Budesonide/Formoterol Fumarate 2 puff 12/26/23 09:00 12/26/23 08:24 Budesonide/Formoterol Fumarate 160/4.5 Mcg Inhaler IH Not Given BID MARILUZ Enoxaparin Sodium 40 mg 12/25/23 15:00 12/26/23 08:18 Enoxaparin Sodium 40 Mg/0.4 Ml Syr SUBCUT 40 mg DAILY MARILUZ Administration Fluticasone Propionate 2 spray 12/25/23 21:00 12/26/23 08:19 Fluticasone Propionate 16 Gm Nasal [place] COMPA 2 spray BID MARILUZ Administration Furosemide 40 mg 12/25/23 21:00 12/26/23 08:18 Furosemide Inj 40 Mg/4 Ml Vial IVP 40 mg Q12HR MARILUZ Administration Levofloxacin/Dextrose 750 mg in 150 mls @ 100 mls/hr 12/26/23 09:00 12/26/23 08:19 Levaquin 750 Mg/150 Ml D5w IV 12/29/23 08:59 100 mls/hr DAILY MARILUZ Administration Insulin Glargine 90 unit 12/26/23 09:00 12/26/23 08:19 Insulin Glargine,Hum.Rec.Anlog 100 Units/Ml SUBCUT 90 unit DAILY MARILUZ Administration Insulin Glargine 85 unit 12/25/23 21:00 12/25/23 20:23 Insulin Glargine,Hum.Rec.Anlog 100 Units/Ml SUBCUT 85 unit BEDTIME MARILUZ Administration Insulin Human Regular 0 unit 12/25/23 19:43 12/26/23 05:58 Insulin Regular, Human 100 Unit/Ml (10ml) Vial SUBCUT 10 unit PRN PRN Administration Hyperglycemia Protocol Lisinopril 10 mg 12/26/23 09:00 12/26/23 08:20 Lisinopril 10 Mg Tablet PO 10 mg DAILY MARILUZ Administration Methylprednisolone Sodium Succinate 40 mg 12/25/23 21:00 12/26/23 05:11 Methylprednisolone Sod Succ/Pf 40 Mg/Ml Vial IVP 40 mg Q8HR MARILUZ Administration Pantoprazole Sodium 40 mg 12/25/23 21:00 12/26/23 08:20 Pantoprazole Sodium 40 Mg Tablet.Dr PO 40 mg BID MARILUZ Administration Rosuvastatin Calcium 40 mg 12/26/23 09:00 12/26/23 08:20 Rosuvastatin Calcium 10 Mg Tablet PO 40 mg DAILY MARILUZ Administration Sodium Chloride 1 syr 12/25/23 21:00 12/26/23 05:12 0.9% Sodium Chloride 10 Ml Disp.Syrin IVF 1 syr Q8HR MARILUZ Administration Tiotropium [place] 1 cap 12/26/23 09:00 12/26/23 08:24 Tiotropium [place] 18 Mcg Cap.W.Dev IH Not Given DAILY MARILUZ Plan Plan: 1. Acute Hypoxic Respiratory Failure in setting of COPD exacerbation and new onset CHF - Improving, PO2 improved on abg to 65, CO2 down to 54, sat continuing to drop to upper 80s at times despite vapotherm, continue to wean vapotherm as tolerated, steroids, nebs, levaquin Q24H, sputum culture ordered, checking CT chest PE protocol to r/o other etiologies 2. COPD Exacerbation - plan as above, continue home daily inhalers 3. New onset CHF - edema, weight gain, sob noted. vascular congestion on chest x-ray. Checking echo today, fluid restriction, I&O, daily weight, lasix 40 mg Q12H 4. DM2 - chronic, accuchecks qid with home insulin regimen, will add ssi if needed, ADA diet 5. Hypertension - chronic, continue home medications 6. Hyperlipidemia - chronic, continue home medications DVT Prophylaxis: Lovenox Review Statement Review Statement: I have personally discussed and reviewed the patient's visit/currently labs/imaging/decision making with Dr. Crockett, my supervising attending. Greater that 50 minutes spent with patient, 50% of the time spent with this patient was devoted to counseling and coordination of care. Additional Additional Information: CT scan showing atelectasis/pneumonia to bilateral lung bases. No evidence of vascular congestion. Will add further pneumonia testing to work-up. Echo results discussed with Dr. Janet Crockett. Reported Right ventricular hypertrophy. Otherwise unremarkable echo. Awaiting EF. Stopping lasix at this time.
[2023-12-26] MEDS: NICODERM 21 MG TD SCH (12:58)
--- NOTE | 2023-12-26 13:32 | CT ---
EXAM: CT ANGIOGRAPHY CHEST (PE PROTOCOL) HISTORY: Shortness of breath TECHNIQUE: CTA chest with intravenous contrast. PE protocol. Multiplanar images were provided with MIP images and 3-D reconstructions. COMPARISON: 12/02/2018 FINDINGS: No pulmonary arterial thromboembolism identified. Mild atherosclerotic disease. Heart s ize is approaching upper limit normal. No pericardial effusion. There are prominent discoid consoli dations in the lung bases suggesting atelectasis and / or pneumonia. Lungs were otherwise clear. Th ere is no pleural fluid, vascular congestion or pneumothorax. The bones appear appropriate for age. IMPRESSION: 1. No pulmonary arterial thromboembolism identified. 2. Mild atherosclerotic disease. 3. Heart size is approaching upper limit normal. 4. There are prominent discoid consolidations in the lung bases suggesting atelectasis and / or pneu monia. - - - - - All CT scans are performed using dose optimization techniques as appropriate to the performed exam an d include at least one of the following: Automated exposure control, adjustment of the mA and/or kV according t o size, and the use of iterative reconstruction technique.
[2023-12-26] MEDS: PROTONIX PO SCH (17:24)
[2023-12-26] MEDS: HUMULIN R (10ML) SUBCUT ONE (17:25)
[2023-12-26] MEDS: SOLU-MEDROL 40 MG IVP SCH (20:33)
[2023-12-26] MEDS: HUMULIN R (10ML) SUBCUT PRN (20:34)
[2023-12-27 05:38] LABS: BASOPHILS % (AUTO) 0.1 % (0.0-3.0); HEMATOCRIT 53.8 % (42.0-52.0); HEMOGLOBIN 16.7 g/dl (14.0-18.0); IMMATURE GRANULOCYTE # (AUTO) 0.2 (0.0-1.0); IMMATURE GRANULOCYTE % (AUTO) 1.1 % (0.0-5.0); LYMPHOCYTES % (AUTO) 5.7 (10.0-50.0); MEAN CORPUSCULAR HEMOGLOBIN 28.1 pg (27.0-31.0); MEAN CORPUSCULAR VOLUME 90.4 fl (80.0-94.0); MONOCYTES # (AUTO) 1.2 K/uL (0.4-2.0); MONOCYTES % (AUTO) 6.6 (0-10); NEUTROPHILS # (AUTO) 15.5 K/ul (2.0-6.9); NEUTROPHILS % (AUTO) 86.5 % (42.2-75.2); PLATELET COUNT 211 10^3/uL (140-440); RDW COEFFICIENT OF VARIATION 13.2 % (11.6-14.8); RED BLOOD COUNT 5.95 10^6/ul (4.70-6.10)
[2023-12-27 05:47] LABS: WHITE BLOOD COUNT 17.95 K/ul (4.2-10.2)
[2023-12-27 05:53] LABS: ALANINE AMINOTRANSFERASE 23.8 U/L (0-50); ALBUMIN 3.95 g/dL (3.5-5.0); ALKALINE PHOSPHATASE 93.3 U/L (56-119); ASPARTATE AMINO TRANSFERASE 26.3 U/L (17-59); BILIRUBIN,TOTAL 0.69 mg/dL (0.2-1.3); BLOOD UREA NITROGEN 36.4 mg/dL (9-20); CALCIUM 9.1 mg/dL (8.4-10.2); CARBON DIOXIDE 31.8 mmol/L (22-30.0); CHLORIDE 93.5 mmol/L (98-107); CREATININE 0.79 mg/dL (0.60-1.10); GLUCOSE 346.4 mg/dL (74-106); POTASSIUM 4.35 mmol/L (3.5-5.1); SODIUM 133.8 mmol/L (134.5-145); TOTAL PROTEIN 6.91 g/dL (6.3-8.2)
[2023-12-27] MEDS: PREDNISONE PO SCH (08:53)
[2023-12-27] MEDS: ASPIRIN EC PO SCH (08:53)
--- NOTE | 2023-12-27 09:11 | PCM.PROG ---
Date/Time Seen Date Seen by Provider: 12/27/23 Time Seen by Provider: 08:45 Provider [facility]N [facility] Chief Complaint Chief Complaint: COPD Subjective Subjective: States breathing is improving Still requiring vapotherm. Hoping to shower today - discussed not gómez at this time due to desat with activity Objective Appearance: Positive No Apparent Distress and Alert and Oriented x3 Chest/Lungs: Positive Symmetrical With Equal Breath Sounds, Rhonci (bilateral lung bases) and Good Air Movement all 4 Lung [place] (diminished in upper lung [place]) Heart: Positive RRR and Pulses Normal GI/: Positive Soft, Nontender, Bowel Sounds Normal and No Distention Musculoskeletal: Positive Not Examined Neurological: Positive Sensation Intact, Motor intact, Alert and Oriented Vital Signs Vital Signs: Vital Signs: Last 24 Hours 12/26/23 09:11 12/26/23 13:00 12/26/23 13:17 Temperature Temperature Source Pulse Rate Respiratory Rate Blood Pressure Blood Pressure Mean Blood Pressure Location Blood Pressure Position O2 Sat by Pulse Oximetry 91 L 91 L Oxygen Delivery Method Vapo Therm Oxygen Flow Rate Fraction of Inspired Oxygen (FIO2) 50 50 Weight Telemetry Type Remote Telemetry Telemetry Monitoring Continues Telemetry Heart Rate 106 H Telemetry SPO2 EKG TX Interval EKG QRS Interval Telemetry Strip Reading ST 12/26/23 13:58 12/26/23 13:59 12/26/23 14:00 Temperature 98.1 F Temperature Source Tympanic Pulse Rate 106 H Respiratory Rate 20 Blood Pressure 130/90 Blood Pressure Mean 103 Blood Pressure Location Right Arm Blood Pressure Position Sitting O2 Sat by Pulse Oximetry 91 L 91 L 91 L Oxygen Delivery Method Vapo Therm Vapo Therm Oxygen Flow Rate Fraction of Inspired Oxygen (FIO2) 50 50 Weight Telemetry Type Telemetry Monitoring Telemetry Heart Rate Telemetry SPO2 EKG TX Interval EKG QRS Interval Telemetry Strip Reading 12/26/23 17:48 12/26/23 18:00 12/26/23 19:00 Temperature 98.8 F Temperature Source Tympanic Pulse Rate 114 H Respiratory Rate 20 Blood Pressure 123/49 L Blood Pressure Mean 73 Blood Pressure Location Right Arm Blood Pressure Position Sitting O2 Sat by Pulse Oximetry 50 L 90 L Oxygen Delivery Method Vapo Therm Oxygen Flow Rate Fraction of Inspired Oxygen (FIO2) 50 Weight Telemetry Type Remote Telemetry Telemetry Monitoring Continues Telemetry Heart Rate 110 H Telemetry SPO2 EKG TX Interval 0.16 EKG QRS Interval 0.[address] with PAC's 12/26/23 20:00 12/26/23 21:06 12/26/23 22:10 Temperature 98.1 F Temperature Source Temporal Artery Scan Pulse Rate 98 Respiratory Rate 18 20 Blood Pressure 123/70 Blood Pressure Mean 87 Blood Pressure Location Right Arm Blood Pressure Position Supine O2 Sat by Pulse Oximetry 91 L 91 L Oxygen Delivery Method Vapo Therm Vapo Therm Oxygen Flow Rate 30 30 Fraction of Inspired Oxygen (FIO2) 50 50 Weight Telemetry Type Telemetry Monitoring Telemetry Heart Rate Telemetry SPO2 EKG TX Interval EKG QRS Interval Telemetry Strip Reading 12/27/23 01:00 12/27/23 01:41 12/27/23 01:52 Temperature 98.0 F Temperature Source Temporal Artery Scan Pulse Rate 87 Respiratory Rate 18 Blood Pressure 128/62 Blood Pressure Mean 84 Blood Pressure Location Right Arm Blood Pressure Position Sitting O2 Sat by Pulse Oximetry 91 L 90 L Oxygen Delivery Method Vapo Therm Oxygen Flow Rate 30 Fraction of Inspired Oxygen (FIO2) 50 50 Weight Telemetry Type Remote Telemetry Telemetry Monitoring Continues Telemetry Heart Rate 73 Telemetry SPO2 89 L EKG TX Interval 0.19 EKG QRS Interval 0.06 Telemetry Strip Reading SR WITH PVC'S 12/27/23 05:15 12/27/23 05:20 12/27/23 05:22 Temperature 97.6 F Temperature Source Temporal Artery Scan Pulse Rate 85 Respiratory Rate 18 Blood Pressure 113/70 Blood Pressure Mean 84 Blood Pressure Location Right Arm Blood Pressure Position Sitting O2 Sat by Pulse Oximetry 94 L 91 L Oxygen Delivery Method Vapo Therm Oxygen Flow Rate 30 Fraction of Inspired Oxygen (FIO2) 50 50 Weight 248 lb 2 oz Telemetry Type Telemetry Monitoring Telemetry Heart Rate Telemetry SPO2 EKG TX Interval EKG QRS Interval Telemetry Strip Reading 12/27/23 07:00 12/27/23 07:51 Temperature Temperature Source Pulse Rate Respiratory Rate 20 Blood Pressure Blood Pressure Mean Blood Pressure Location Blood Pressure Position O2 Sat by Pulse Oximetry Oxygen Delivery Method Vapo Therm Oxygen Flow Rate 30 Fraction of Inspired Oxygen (FIO2) Weight Telemetry Type Remote Telemetry Telemetry Monitoring Continues Telemetry Heart Rate 82 Telemetry SPO2 91 L EKG TX Interval 0.18 EKG QRS Interval 0.09 Telemetry Strip Reading SR with PVC Lab Results Lab Results: Lab Results: Last 24 Hours 12/27/23 04:49 WBC 17.95 H D RBC 5.95 Hgb 16.7 Hct 53.8 H MCV 90.4 MCH 28.1 MCHC 31.0 L RDW Coeff of Dayana 13.2 Plt Count 211 Immature Gran % (Auto) 1.1 Neut % (Auto) 86.5 H Lymph % (Auto) 5.7 L [place] % (Auto) 6.6 Eos % (Auto) 0.0 Baso % (Auto) 0.1 Neut # (Auto) 15.5 H Lymph # (Auto) 1.0 [place] # (Auto) 1.2 Eos # (Auto) 0.0 Baso # (Auto) 0.0 Immature Gran # (Auto) 0.2 Sodium 133.8 L Potassium 4.35 Chloride 93.5 L Carbon Dioxide 31.8 H Anion Gap 12.85 BUN 36.4 H Creatinine 0.79 Estimated GFR (MDRD) 97.00 BUN/Creatinine Ratio 46.07 Glucose 346.4 H Calcium 9.10 Total Bilirubin 0.69 AST 26.3 ALT 23.8 Alkaline Phosphatase 93.3 Total Protein 6.91 Albumin 3.95 Globulin 2.96 Albumin/Globulin Ratio 1.33 Additional Comments Additional Comments: I have independently reviewed and interpreted the labs/EKGs/imaging ordered during this hospital stay. I have reviewed outside records that are available in our EMR that pertain to medical stay including imaging/notes/labs from previous visits. Active Medications Active Medications: Medications Generic Name Dose Route Start Last Admin Trade Name Freq PRN Reason Stop Dose Admin Acetaminophen 650 mg 12/25/23 14:49 12/25/23 17:31 Acetaminophen 325 Mg Tablet PO 650 mg Q4H PRN Administration Mild Pain Hydrocodone Bitart/Acetaminophen 1 tab 12/25/23 19:39 12/27/23 09:03 Hydrocodone Bit/Acetaminophen 10/325 Mg Tablet PO 1 tab Q6H PRN Administration Pain Albuterol Sulfate 2.5 mg 12/25/23 14:49 Albuterol Sulfate 0.083% Vial.Neb NEB RTQ4H PRN Wheezing Albuterol/Ipratropium 3 ml 12/25/23 18:00 12/27/23 05:21 Ipratropium/Albuterol Vial.Neb NEB 3 ml RTQ4H MARILUZ Administration Aspirin 81 mg 12/27/23 07:30 12/27/23 08:53 Aspirin 81 Mg Tablet. PO 81 mg DAILYWM2 MARILUZ Administration Budesonide/Formoterol Fumarate 2 puff 12/26/23 09:00 12/27/23 09:04 Budesonide/Formoterol Fumarate 160/4.5 Mcg Inhaler IH 2 puff BID MARILUZ Administration Enoxaparin Sodium 40 mg 12/25/23 15:00 12/27/23 08:58 Enoxaparin Sodium 40 Mg/0.4 Ml Syr SUBCUT 40 mg DAILY MARILUZ Administration Fluticasone Propionate 2 spray 12/25/23 21:00 12/27/23 09:05 Fluticasone Propionate 16 Gm Nasal [place] COMPA 2 spray BID MARILUZ Administration Levofloxacin/Dextrose 750 mg in 150 mls @ 100 mls/hr 12/26/23 09:00 12/27/23 08:55 Levaquin 750 Mg/150 Ml D5w IV 12/29/23 08:59 100 mls/hr DAILY MARILUZ Administration Insulin Glargine 90 unit 12/26/23 09:00 12/27/23 08:59 Insulin Glargine,Hum.Rec.Anlog 100 Units/Ml SUBCUT 90 unit DAILY MARILUZ Administration Insulin Glargine 85 unit 12/25/23 21:00 12/26/23 20:35 Insulin Glargine,Hum.Rec.Anlog 100 Units/Ml SUBCUT 85 unit BEDTIME MARILUZ Administration Insulin Human Regular 0 unit 12/26/23 17:25 12/27/23 06:04 Insulin Regular, Human 100 Unit/Ml (10ml) Vial SUBCUT 12 unit PRN PRN Administration Hyperglycemia Protocol Lisinopril 10 mg 12/26/23 09:00 12/27/23 08:53 Lisinopril 10 Mg Tablet PO 10 mg DAILY MARILUZ Administration Nicotine 1 patch 12/26/23 11:20 12/27/23 08:54 Nicotine 21 Mg Patch.Td24 TD 1 patch DAILY MARILUZ Administration Pantoprazole Sodium 40 mg 12/26/23 17:00 12/27/23 05:19 Pantoprazole Sodium 40 Mg Tablet. PO 40 mg BIDAC2 MARILUZ Administration Prednisone 10 mg 12/27/23 07:30 12/27/23 08:53 Prednisone 10 Mg Tablet PO 10 mg BIDWM2 MARILUZ Administration Rosuvastatin Calcium 40 mg 12/26/23 09:00 12/27/23 08:54 Rosuvastatin Calcium 10 Mg Tablet PO 40 mg DAILY MARILUZ Administration Sodium Chloride 1 syr 12/25/23 21:00 12/27/23 05:19 0.9% Sodium Chloride 10 Ml Disp.Syrin IVF 1 syr Q8HR MARILUZ Administration Tiotropium [place] 1 cap 12/26/23 09:00 12/27/23 09:04 Tiotropium [place] 18 Mcg Cap.W.Dev IH 1 cap DAILY MARILUZ Administration Plan Plan: 1. Acute Hypoxic Respiratory Failure in setting of COPD exacerbation and CAP - Improving, tolerating vapotherm and maintaining sat of 90-91%, likely progressive end-stage copd contributing, continue to wean vapotherm as tolerated, steroids - wean, nebs, levaquin Q24H 2. Bilateral pneumonia - levaquin Q24H, sputum culture showing mixed growth, legionella and strep pneumo pending 3. COPD Exacerbation - plan as above, continue home daily inhalers 4. CHF - ruled out, echo completed and normal, symptoms resolved with treatment of COPD 5. DM2 - chronic, accuchecks qid with home insulin regimen, added ssi, ADA diet 6. Hypertension - chronic, continue home medications 7. Hyperlipidemia - chronic, continue home medications DVT Prophylaxis: Lovenox Review Statement Review Statement: I have personally discussed and reviewed the patient's visit/currently labs/imaging/decision making with Dr. Crockett, my supervising attending. Greater that 50 minutes spent with patient, 50% of the time spent with this patient was devoted to counseling and coordination of care.
[2023-12-28 05:14] LABS: BASOPHILS % (AUTO) 0.1 % (0.0-3.0); EOSINOPHILS % (AUTO) 0.2 % (0.0-7.0); HEMATOCRIT 51.4 % (42.0-52.0); HEMOGLOBIN 15.9 g/dl (14.0-18.0); IMMATURE GRANULOCYTE # (AUTO) 0.1 (0.0-1.0); IMMATURE GRANULOCYTE % (AUTO) 0.5 % (0.0-5.0); LYMPHOCYTES # (AUTO) 2.3 K/uL (0.60-3.4); LYMPHOCYTES % (AUTO) 17.5 (10.0-50.0); MEAN CORPUSCULAR HEMOGLOBIN 28.2 pg (27.0-31.0); MEAN CORPUSCULAR HGB CONC 30.9 (31.8-35.4); MEAN CORPUSCULAR VOLUME 91.3 fl (80.0-94.0); MONOCYTES # (AUTO) 1.2 K/uL (0.4-2.0); NEUTROPHILS # (AUTO) 9.3 K/ul (2.0-6.9); NEUTROPHILS % (AUTO) 72.7 % (42.2-75.2); PLATELET COUNT 178 10^3/uL (140-440); RDW COEFFICIENT OF VARIATION 13.4 % (11.6-14.8); RED BLOOD COUNT 5.63 10^6/ul (4.70-6.10)
[2023-12-28 05:18] LABS: WHITE BLOOD COUNT 12.84 K/ul (4.2-10.2)
[2023-12-28 05:36] LABS: ALANINE AMINOTRANSFERASE 24.9 U/L (0-50); ALBUMIN 3.49 g/dL (3.5-5.0); ALKALINE PHOSPHATASE 79.1 U/L (56-119); ASPARTATE AMINO TRANSFERASE 28.2 U/L (17-59); BILIRUBIN,TOTAL 0.77 mg/dL (0.2-1.3); BLOOD UREA NITROGEN 26.9 mg/dL (9-20); CALCIUM 8.69 mg/dL (8.4-10.2); CARBON DIOXIDE 32.8 mmol/L (22-30.0); CREATININE 0.66 mg/dL (0.60-1.10); GLUCOSE 169.6 mg/dL (74-106); SODIUM 135.4 mmol/L (134.5-145); TOTAL PROTEIN 6.2 g/dL (6.3-8.2)
--- NOTE | 2023-12-28 10:06 | DCSUM ---
Admission Date Admission Date: 12/25/23 Discharge Date Discharge Date: 12/28/23 Admission Diagnosis Admission Diagnosis: 1. Acute Hypoxic Respiratory Failure in setting of COPD exacerbation and new onset CHF 2. COPD Exacerbation 3. New onset CHF 4. DM2 5. Hypertension 6. Hyperlipidemia Discharge Diagnosis Discharge Diagnosis: 1. Acute Hypoxic Respiratory Failure in setting of COPD exacerbation and CAP - Resolved, requiring continuous oxygen 2. Bilateral pneumonia - Improving 3. COPD Exacerbation - Improving 4. CHF - Ruled out 5. DM2 - Chronic, stable 6. Hypertension - Chronic, stable 7. Hyperlipidemia - Chronic, stable Hospital Provider Hospital Provider: AUTUMN BOYKIN, [facility] Primary Care Physician Primary Care Physician: SANDHYA GOMEZ APRN, FNP-C Summary of History and Physical Summary of History and Physical: 73 yo male presented to the ER with complaints of shortness of breath. States he has felt this way over the past 2 weeks and has progressively worsened. Has pmh of COPD and still smokes 1ppd. Has home oxygen that he wears prn. Does not have nebulizer treatments but does use inhalers that he reports do not help his shortness of breath. Denies any fever, chills, chest pain, palpitations. Does report some swelling to lower extremities and feels his abdomen is distended/tight. States he normally weighs around 240-250s and is currently 260 lbs. Denies any pmh of CHF that he is aware of. In ER, O2 sat was dropping into the 80s. He was placed on 2L with minimal improvement. RT reports he was on 4L and desat quickly when ambulating. ABG obtained and showed CO2 in 60s (which is chronic for him) and PO2 in 50s. ER provider requested BIPAP and was determined to not be appropriate at this time and patient unable to tolerate due to nasal fracture in the past. He was then placed on vapotherm and is maintaining O2 sat in 90s with FiO2 on 45%. Admitted to med/surg observation for acute hypoxic respiratory failure and new onset CHF. Hospital Course Subjective: Patient was on vapotherm x 2 days. He was weaned off effectively yesterday to 4L NC. He has tolerated well with no desaturation episodes on exertion. Continued to require 4L to maintain sat of 88-94% at rest. He was treated with levaquin, steroids, and nebs. Chest x-ray on admission showed vascular congestion and CHF regimen with lasix was started. Echo completed and EF normal and no CHF diagnosed. Stopped this treatment. Patient had continued to be tachycardic and SOB initially. CT of chest completed to r/o other etiologies. Showed bilateral pneumonia. Continued above plan with orders to check for legionella and strep pneumo. Pending at this time. No changes made to current home medications. Added nebulizer treatments and rx for finished course of levaquin and steroids. Patient is moving to [place] to be with family to assist with care. 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 Sending home with nebulizer machine and portable oxygen through [employer]. Appearance: Pleasant, No Apparent Distress and Alert HEENT: MMM and Supple CVS: No Murmur and No Rubs Abdomen: Soft, Non-Tender and No Distention Respiratory: Other (Expiratory wheezing in upper lung bar[place], coarse rhonchi to bilateral lung bases. ) Extremities: No Edema Vital Signs: Most Recent Vital Signs Temperature 99.1 F 12/28/23 05:33 Temperature Source Temporal Artery Scan 12/28/23 05:33 Temperature Source Infrared 12/25/23 12:01 Pulse Rate 71 12/28/23 05:33 Respiratory Rate 18 12/28/23 05:33 Blood Pressure 119/72 12/28/23 05:33 Blood Pressure Mean 87 12/28/23 05:33 Blood Pressure Right Arm 103/76 12/25/23 15:01 Blood Pressure Location Right Arm 12/28/23 05:33 Blood Pressure Position Supine 12/28/23 05:33 O2 Sat by Pulse Oximetry 95 12/28/23 05:33 Oxygen Delivery Method Nasal Cannula 12/28/23 08:00 Oxygen Flow Rate 4 12/28/23 08:00 Fraction of Inspired Oxygen (FIO2) 40 12/27/23 14:00 Height 5 ft 11 in 12/25/23 15:01 Weight 250 lb 8 oz 12/28/23 05:49 Telemetry Type Remote Telemetry 12/28/23 07:00 Telemetry Monitoring Continues 12/28/23 07:00 Telemetry Heart Rate 75 12/28/23 07:00 Telemetry SPO2 89 L 12/28/23 07:00 EKG [place] Interval 0.18 12/28/23 07:00 EKG QRS Interval 0.07 12/28/23 07:00 Telemetry Strip Reading SR with PVCs 12/28/23 07:00 Imaging: EXAM: CHEST RADIOGRAPH FINDINGS: The heart and mediastinum are normal. The lungs and pleural spaces are stable. Prominent bibasilar markings are noted. No acute abnormality of the bones or soft tissues is identified. Cervical fixation hardware is identified. An old left clavicle fracture is noted. IMPRESSION: Mild pulmonary vascular congestion is suspected. Otherwise, stable exam. EXAM: CT ANGIOGRAPHY CHEST (PE PROTOCOL) FINDINGS: No pulmonary arterial thromboembolism identified. Mild atherosclerotic disease. Heart size is approaching upper limit normal. No pericardial effusion. There are prominent discoid consolidations in the lung bases suggesting atelectasis and / or pneumonia. Lungs were otherwise clear. There is no pleural fluid, vascular congestion or pneumothorax. The bones appear appropriate for age. IMPRESSION: 1. No pulmonary arterial thromboembolism identified. 2. Mild atherosclerotic disease. 3. Heart size is approaching upper limit normal. 4. There are prominent discoid consolidations in the lung bases suggesting atelectasis and / or pneumonia. Lab Results Last 24 Hours: 12/28/23 04:54 WBC 12.84 H D RBC 5.63 Hgb 15.9 Hct 51.4 MCV 91.3 MCH 28.2 MCHC 30.9 L RDW Coeff of Dayana 13.4 Plt Count 178 Immature Gran % (Auto) 0.5 Neut % (Auto) 72.7 Lymph % (Auto) 17.5 [place] % (Auto) 9.0 Eos % (Auto) 0.2 Baso % (Auto) 0.1 Neut # (Auto) 9.3 H Lymph # (Auto) 2.3 [place] # (Auto) 1.2 Eos # (Auto) 0.0 Baso # (Auto) 0.0 Immature Gran # (Auto) 0.1 Sodium 135.4 Potassium 4.00 Chloride 97.0 L Carbon Dioxide 32.8 H Anion Gap 9.60 BUN 26.9 H Creatinine 0.66 Estimated GFR (MDRD) 119.00 BUN/Creatinine Ratio 40.75 Glucose 169.6 H Calcium 8.69 Total Bilirubin 0.77 AST 28.2 ALT 24.9 Alkaline Phosphatase 79.1 Total Protein 6.20 L Albumin 3.49 L Globulin 2.71 Albumin/Globulin Ratio 1.28 Discharge Instructions Discharge Planning: Discharge Planning > 40 minutes If patient is discharged with left ventricular systolic dysfunction: NA Discharged with a beta donna? [] If no, why not? [] Discharged with an angie/arb? [] If no, why not? [] Discharge Medications: Medications at Discharge (Home Meds & RX) aspirin 81 mg tablet,delayed release (Adult Aspirin Regimen) 81 mg PO QDAY 01/25/21 blood sugar diagnostic (True Metrix Glucose Test Strip) #100 ea 09/15/21 pen needle, diabetic 32 gauge x " (Sure Comfort Pen Needle) See Rx Instructions .Route .COMPLEX #250 ea 02/28/22 lisinopril 10 mg tablet 10 mg PO QDAY #90 tabs 03/06/22 rosuvastatin 40 mg tablet 40 mg PO QDAY #30 tabs 07/09/22 fluticasone fur. 200 mcg-umeclid 62.5 mcg-vilant 25 mcg inhalat.powder (Trelegy Ellipta) 1 inh inhalation DAILY 10/31/22 fluticasone propionate 50 mcg/actuation nasal spray,suspension 2 spray intranasal BID 10/31/22 hydrocodone 10 mg-acetaminophen 325 mg tablet 1 tab PO Q6H PRN Pain 10/31/22 insulin glargine 100 unit/mL (3 mL) subcutaneous pen (Basaglar KwikPen U-100 Insulin) 1 unit subcut DIRECTED 10/31/22 ipratropium bromide 17 mcg/actuation HFA aerosol inhaler (Atrovent HFA) 2 puff inhalation TID 10/31/22 pantoprazole 40 mg tablet,delayed release 40 mg PO BID 10/31/22 insulin aspart U-100 100 unit/mL (3 mL) subcutaneous pen (Novolog FlexPen U-100 Insulin aspart) 15 unit subcut TID 12/25/23 Discharge Plan Discharge Discharge Orders: Discharge Patient (ONCE); Ordered 12/28/23 Ordered By: SHANNON CHÁVEZ Activity Restrictions/Additional Instructions: DIAGNOSIS: COMMUNITY ACQUIRE PNEUMONIA, COPD EXACERBATION DIET: DIABETIC ACTIVITY: TOLERATED FOLLOW-UP WITH PCP NEXT WEEK WEAR 4L OF OXYGEN AT ALL TIMES MEDICATIONS: LEVAQUIN DAILY X 3 DAYS (ANTIBIOTIC FOR PNEUMONIA) PREDNISONE DAILY X 3 DAYS (FOR PNEUMONIA AND COPD) DUONEB (BREATHING TREATMENT, DAILY EVERY 4 HOURS, PCP MAY DECREASE IF CONDITION IMPROVES) - DO NOT TAKE ATROVENT INHALER IF USING THIS MEDICATION, IT IS THE SAME. ALBUTEROL (BREATHING TREATMENT, EVERY 4 HOURS NEEDED FOR SHORTNESS OF BREATH/WHEEZING) Instructions: Using Oxygen at Home (GEN), COPD (Chronic Obstructive Pulmonary Disease) (GEN), How to Use a Nebulizer (GEN), Pneumonia (GEN) Patient Disposition: HOME WITH FAMILY CARE Prescriptions: New prednisone 10 mg Tablet 10 mg PO DAILY Qty: 3 0RF ipratropium-albuterol 0.5 mg-3 mg(2.5 mg base)/3 mL Solution For Nebulization 3 ml NEB RTQ4H Qty: 180 0RF albuterol sulfate 2.5 mg /3 mL (0.083 %) Solution For Nebulization 2.5 mg NEB RTQ4H PRN (Reason: shortness of breath or wheezing) Qty: 180 0RF levofloxacin 750 mg tablet 750 mg PO DAILY Qty: 3 0RF Continued (DME) True Metrix Glucose Test Strip Strip See Rx Instructions .ROUTE .MEDSUPPLY Qty: 100 4RF Rx Instructions: take three times daily and As directed pen needle, diabetic [Sure Comfort Pen Needle] 32 gauge x 5/32" needle See Rx Instructions .ROUTE .COMPLEX Qty: 250 12RF Dose Instruction: USE FOR Basaglar injections daily Rx Instructions: Use daily with [place], Basaglar and Novalog injections. lisinopril 10 mg tablet 10 mg PO QDAY Qty: 90 1RF rosuvastatin 40 mg tablet 40 mg PO QDAY Qty: 30 3RF Trelegy Ellipta 200-62.5-25 mcg blister with device 1 inh INHALATION DAILY Patient Comments: inhale ONE PUFF BY MOUTH DAILY pantoprazole 40 mg tablet,delayed release (DR/EC) 40 mg PO BID hydrocodone-acetaminophen 10-325 mg tablet 1 tab PO Q6H PRN (Reason: Pain) Patient Comments: TAKE ONE TABLET BY MOUTH EVERY 6 HOURS NEEDED FOR PAIN fluticasone propionate 50 mcg/actuation spray,suspension 2 spray INTRANASAL BID Patient Comments: SPRAY TWO SPRAYS into THE nostril(s) TWICE DAILY DIRECTED insulin glargine [Basaglar KwikPen U-100 Insulin] 100 unit/mL (3 mL) insulin pen 1 unit SUBCUT DIRECTED Patient Comments: take 90 units EVERY MORNING AND take 85 units EVERY EVENING (total 175 units DAILY) Rx Instructions: 90 UNITS IN AM 85 UNITS IN PM insulin aspart U-100 [Novolog FlexPen U-100 Insulin] 100 unit/mL (3 mL) insulin pen 15 unit SUBCUT TID Patient Comments: inject 15 units UNDER THE SKIN THREE TIMES DAILY WITH meals aspirin [Adult Aspirin Regimen] 81 mg tablet,delayed release (DR/EC) 81 mg PO QDAY Discontinued Atrovent HFA 17 mcg/actuation Hfa Aerosol Inhaler 2 puff INHALATION TID Did you review [place] [facility] for ALL controlled substances?: No Discussed opioids are addictive and Narcan is available by prescription or from pharmacy.: No Condition: Stable Referrals: DEVI VINCENT MD [STAFF PHYSICIAN] - 01/03/24 10:30 am
[2023-12-28 10:08] VITALS: BP 138/96; PULSE 87; RESP 20; TEMP 98
--- NOTE | 2023-12-29 14:12 | ECHO2D ---
Date of Exam: 12/26/2023 Ordering Physician: ANA BALDERRAMA Room #: 115 Reason for Echo: SOB, EDEMA, COPD M-Mode Normal Adult Results LV Dimensions Normal Adult Results AoV Opening excursions >1.6 >1.6 LVEDD-base- 3.5-5.8 5.0 Ao root dimensions 2.0-3.7 3.9 LVESD-base- 3.1-4.6 L. Atrium dimensions 1.9-3.8 5.4 Post. Wall thickness 0.8-1.1 1.3 IV septum (thickness) 0.7-1.2 1.4 Post. Wall excursion 0.72-1.3 NORMAL Septal motion NORMAL Systolic motion R. Ventricular cavity 1.5-2.0 3.5 LVEF 60% 70% Paradoxical septal wall motion NORMAL 2-D : ENLARGED RIGHT VENTRICLE, LEFT ATRIAL AND RIGHT ATRIAL CAVITIES, NORMAL LEFT VENTRICLE SIZE AND LEFT VENTRICLE CONTRACTILITY--CALCIFIC AORTIC VALVE LEAFLETS, NORMAL VALVES, NO EFFUSION, NO THROMBUS M-MODE: MV: NORMAL AV: CALCIFIC AORTIC VALVE LEAFLET TV: NORMAL PV: CHAMBER SIZE: ENLARGED RIGHT VENTRICLE, RIGHT ATRIAL AND LEFT ATRIAL CAVITIES/ BORDERLINE AORTIC ROOT WALL MOTION: NORMAL PERICARDIUM: NORMAL INTERPRETATION: 1. LEFT VENTRICLE HYPERTROPHY WITH ENLARGED LEFT ATRIAL CAVITY 2. ENLARGED RIGHT ATRIAL AND RIGHT VENTRICLE CAVITIES 3. CALCIFIC AORTIC VALVE LEAFLETS 4. BORDERLINE AORTIC ROOT 5. NORMAL LEFT VENTRICLE SIZE AND LEFT VENTRICLE CONTRACTILITY DIFFICULT STUDY-SEVERE COPD MTDD
== END 2023-12-28 11:55 | disposition home or self-care (01) | DRG 189 ==
LOC: MEDSURG B 11:55 → ED 11:55 → MEDSURG B 15:05
PROVIDERS: ADMIT Hospitalist; ATTEND Nurse Practitioner Family
DX: E11.9 Type 2 diabetes mellitus without complications; F17.210 Nicotine dependence, cigarettes, uncomplicated; J96.01 Acute respiratory failure with hypoxia; E78.5 Hyperlipidemia, unspecified; I10 Essential (primary) hypertension; J44.1 Chronic obstructive pulmonary disease with (acute) exacerbation; J18.9 Pneumonia, unspecified organism